=== PATIENT | male | born 1970 | race African-American/Black ===

== ENCOUNTER 2018-04-02 18:21 | Emergency (ER) | payer OTHER ==
[~2018-04-02] VITALS: Ht 170.2 cm; Wt 55.3 kg
[~2018-04-02 18:21] MED LIST: ALLERGY10 M2 PO; CREON DR 36,001 EACH PO; DICLOFENAC SODI75 MG PO; DIGESTIVE ENZY1 EAC3; FLONASE 0.05%50 MCG NASAL; LOPRESSOR50 PO; METFORMIN HCL500 MG PO; NORCO 5-325 TA1 EACH PO; ONDANSETRON HCL4 M2 PO; OXYCONTIN10 M1 PO; PEPCID20 MG PO; PHENERGAN 25 MG25 M1 PO; PRILOSEC 20 MG20 MG PO; PROMS25 WY RECTAL; SYMBICORT160 MCG/4. INH; VENTOLIN HFA 1818 GM INH
[2018-04-02] MEDS ORDERED: LISINOPRIL10 MG PO (18:37)
[2018-04-02] MEDS ORDERED: PROTONIX40 M1 PO (18:38)
[2018-04-02 19:15] LABS: ABSOLUTE NEUTROPHILS 5.1 thou/uL (1.4-8.2); BASOPHILS 1.3 % (0.0-2.0); EOSINOPHILS 2.3 % (0.0-3.0); HEMATOCRIT 38.7 % (42.0-52.0); HEMOGLOBIN 12.7 gm/dL (14.0-18.0); LYMPHOCYTES 28.9 % (24.0-44.0); MCH 25.7 pg (26.0-34.0); MCHC 32.9 g/dL (28.0-37.0); MCV 78.3 fL (80.0-100.0); MONOCYTES 9.3 % (1.0-8.0); PLATELET COUNT 424 thou/uL (150-400); POLYS 58.2 % (36.0-66.0); RBC 4.95 mil/uL (4.50-6.00); RDW 17.9 % (10.5-14.5); WBC 8.8 thou/uL (4.0-11.0)
[2018-04-02 19:22] LABS: CALCIUM 9.1 mg/dL (8.5-10.1); CREATININE 0.8 mg/dL (0.7-1.3); POTASSIUM 4.1 mmol/L (3.5-5.1)
[2018-04-02 19:28] LABS: ALBUMIN 3.2 g/dL (3.4-5.0); TOTAL BILIRUBIN 0.3 mg/dL (<0.1-1.0); TOTAL PROTEIN 7.8 g/dL (6.4-8.2)
[2018-04-02 20:47] LABS: URINE BLOOD NEGATIVE (Negative); URINE CLARITY CLEAR; URINE COLOR YELLOW; URINE GLUCOSE-RANDOM* 1+ (Negative); URINE KETONES 2+ (Negative); URINE LEUKOCYTES-REFLEX NEGATIVE (Negative); URINE NITRITE-REFLEX NEGATIVE (Negative); URINE PROTEIN (DIPSTICK) NEGATIVE (Negative)
[2018-04-02 20:48] LABS: ICTOTEST (BILI CONFIRMATORY) Negative (Negative); URINE BILIRUBIN NEGATIVE (Negative)
[2018-04-02] MEDS ORDERED: REGLAN 10 MG TA10 MG PO (22:17)
[2018-04-02 23:16] VITALS: BP 164/91
== END 2018-04-02 23:17 | disposition home or self-care (01) ==
LOC: ER 18:21
PROVIDERS: Physician Assistant
DX: R11.2 Nausea with vomiting, unspecified (principal); R10.13 Epigastric pain; E11.649 Type 2 diabetes mellitus with hypoglycemia without coma; K86.1 Other chronic pancreatitis; J45.909 Unspecified asthma, uncomplicated; F17.210 Nicotine dependence, cigarettes, uncomplicated; Z86.2 Personal history of diseases of the blood and blood-forming organs and certain disorders involving the immune mechanism; Z88.0 Allergy status to penicillin

== ENCOUNTER 2018-05-13 14:53 | Emergency (ER) | payer OTHER ==
[~2018-05-13] VITALS: Ht 170.2 cm; Wt 55.8 kg
[~2018-05-13 14:53] MED LIST changes: +LISINOPRIL10 MG PO; +PROTONIX40 M1 PO; +REGLAN 10 MG TA10 MG PO
[2018-05-13 14:57] VITALS: BP 137/86
[2018-05-13] MEDS ORDERED: FLOVENT HFA12 G1 INH (15:01)
[2018-05-13 15:48] LABS: HEMATOCRIT 35.3 % (42.0-52.0); HEMOGLOBIN 11.6 gm/dL (14.0-18.0); MCH 25.2 pg (26.0-34.0); MCHC 32.8 g/dL (28.0-37.0); PLATELET COUNT 355 thou/uL (150-400); RBC 4.59 mil/uL (4.50-6.00); RDW 18.3 % (10.5-14.5); WBC 7.6 thou/uL (4.0-11.0)
[2018-05-13 15:54] LABS: CALCIUM 8.9 mg/dL (8.5-10.1); CREATININE 0.9 mg/dL (0.7-1.3); POTASSIUM 4.1 mmol/L (3.5-5.1)
[2018-05-13 15:58] LABS: URIC ACID* 4.9 mg/dL (2.6-7.2)
[2018-05-13 16:07] LABS: ABSOLUTE NEUTROPHILS 4.9 thou/uL (1.4-8.2); ANISOCYTOSIS 1+
[2018-05-13] MEDS ORDERED: INDOMETHACIN 2525 MG PO (16:21)
[2018-05-13] MEDS ORDERED: ULTRAM 50MG TAB50 MG PO (16:21)
== END 2018-05-13 16:50 | disposition home or self-care (01) ==
LOC: ER 14:53
PROVIDERS: Physician Assistant
DX: M79.672 Pain in left foot (principal); M79.89 Other specified soft tissue disorders; F17.210 Nicotine dependence, cigarettes, uncomplicated; E11.9 Type 2 diabetes mellitus without complications; J45.909 Unspecified asthma, uncomplicated; M10.9 Gout, unspecified; K86.1 Other chronic pancreatitis; K86.81 Exocrine pancreatic insufficiency; Z88.0 Allergy status to penicillin

== ENCOUNTER 2019-08-03 15:12 | Inpatient (IN) | payer OTHER ==
[~2019-08-03] VITALS: Ht 170.2 cm; Wt 47.2 kg
[~2019-08-03 15:12] MED LIST changes: +FLOVENT HFA12 G1 INH; +INDOMETHACIN 2525 MG PO; +ULTRAM 50MG TAB50 MG PO
[2019-08-03 15:13] VITALS: BP 128/94
[2019-08-03 15:38] LABS: URINE BLOOD NEGATIVE (Negative); URINE CLARITY CLEAR; URINE COLOR YELLOW; URINE GLUCOSE-RANDOM* NEGATIVE (Negative); URINE KETONES 1+ (Negative); URINE LEUKOCYTES NEGATIVE (Negative); URINE NITRITE NEGATIVE (Negative); URINE PROTEIN (DIPSTICK) TRACE (Negative); URINE SPECIFIC GRAVITY 1.025 (1.005-1.035)
[2019-08-03 15:41] LABS: ICTOTEST (BILI CONFIRMATORY) Negative (Negative); URINE BILIRUBIN NEGATIVE (Negative)
[2019-08-03 16:03] LABS: ABSOLUTE NEUTROPHILS 4.3 thou/uL (1.4-8.2); EOSINOPHILS 1.3 % (0.0-3.0); HEMATOCRIT 40.6 % (42.0-52.0); HEMOGLOBIN 12.7 gm/dL (14.0-18.0); LYMPHOCYTES 25.2 % (24.0-44.0); MCH 25.2 pg (26.0-34.0); MCHC 31.4 g/dL (28.0-37.0); MCV 80.5 fL (80.0-100.0); PLATELET COUNT 330 thou/uL (150-400); POLYS 64.5 % (36.0-66.0); RBC 5.04 mil/uL (4.50-6.00); WBC 6.7 thou/uL (4.0-11.0)
[2019-08-03 16:11] LABS: CALCIUM 9.3 mg/dL (8.5-10.1); POTASSIUM 4.1 mmol/L (3.5-5.1)
[2019-08-03] MEDS ORDERED: COLCHICINE0.6 MG PO (16:11)
[2019-08-03] MEDS ORDERED: SYMBICORT160 MCG/4. INH (16:12)
[2019-08-03] MEDS ORDERED: CHANTIX0.5 MG PO (16:14)
[2019-08-03] MEDS ORDERED: ONDANSETRON ODT8 MG PO (16:15)
[2019-08-03] MEDS ORDERED: MARINOL2.5 MG PO (16:16)
[2019-08-03] MEDS ORDERED: ACYCLOVIR 400400 MG PO (16:16)
[2019-08-03 16:17] LABS: ALBUMIN 3.4 g/dL (3.4-5.0); TOTAL BILIRUBIN 0.5 mg/dL (<0.1-1.0); TOTAL PROTEIN 7.8 g/dL (6.4-8.2)
[2019-08-03] MEDS ORDERED: IRON325 PO (16:17)
[2019-08-03] MEDS ORDERED: REMERON15 MG PO (16:18)
[2019-08-03] MEDS ORDERED: PHENERGAN 25 MG25 M1 PO (16:18)
[2019-08-03] MEDS ORDERED: OLOPATADINE HC2.5 ML OPHTHALMIC (16:21)
[2019-08-03] MEDS ORDERED: TRIAMCINOLONE A80 G2 TOP (16:22)
[2019-08-03 19:06] VITALS: BP 145/87
[2019-08-03 19:15] VITALS: BP 141/84
[2019-08-03 19:33] VITALS: BP 166/94
--- NOTE | 2019-08-04 04:09 | NUR ---
PT ARRIVED ON UNIT FROM ED AT 1930. ADMITTED WITH CHRONIC PANCREATITIS. AMBULATES INDEPENDENTLY. DILAUDID PROVIDING PAIN RELIEF. RESTING COMFORTABLY. NO NEEDS VOICED. CALL LIGHT WITHIN REACH. WILL CONTINUE TO PROVIDE FREQUENT OBSERVATION.
[2019-08-04 05:02] VITALS: BP 123/85
[2019-08-04 05:06] LABS: HEMATOCRIT 37.8 % (42.0-52.0); HEMOGLOBIN 11.9 gm/dL (14.0-18.0); MCH 25.5 pg (26.0-34.0); MCHC 31.6 g/dL (28.0-37.0); MCV 80.9 fL (80.0-100.0); RBC 4.67 mil/uL (4.50-6.00); RDW 17.9 % (10.5-14.5); WBC 6.2 thou/uL (4.0-11.0)
[2019-08-04 05:32] LABS: CALCIUM 8.6 mg/dL (8.5-10.1); POTASSIUM 4.2 mmol/L (3.5-5.1)
[2019-08-04 07:43] VITALS: BP 134/82
--- NOTE | 2019-08-04 10:13 | NUR ---
PT RESTING IN BED WATCHINCG TV. GIVEN AM MEDS AND PRN PAIN MED. PT REMAINS ON CLEAR LIQUID DIET. ORDERED AM MED AND NASAL SPRAY FROM PHARMACY.
--- NOTE | 2019-08-04 15:06 | NUR ---
PT REMAINS ON CLEAR LIQUID DIET AND HAS ENSURE CLEAR SUPPLEMENTS DRANK ALL AT BREAKFAST AND DINNER.
[2019-08-04 17:12] VITALS: BP 127/86
--- NOTE | 2019-08-04 17:26 | NUR ---
ASSESSMENT-PT LIVES AT HOME WITH HIS . HE IS INDEPENDENT OF ADLS AND AMBULATION. PT DRIVES. IS ABLE TO ASSIST AT HOME IF NEEDED. PT VOICES NO DC NEEDS AT THIS TIME. FOLLOWING TO ASSIST WITH DC PLANNING.
[2019-08-04 20:10] VITALS: BP 117/81
--- NOTE | 2019-08-05 02:59 | NUR ---
PT C/O PAIN ON HIS ABD,MANAGED WITH MEDICATION.PT CONT ON IVF.BG MONITORED,STABLE.UP ADLIB IN ROOM.SPOUSE AT BEDSIDE IN HIS ROOM.PT ABLE TO MAKE HIS NEEDS KNOWN.CALL LIGHT WITHIN REACH.
[2019-08-05 04:20] VITALS: BP 113/78
[2019-08-05 07:39] VITALS: BP 137/82
--- NOTE | 2019-08-05 09:39 | NUR ---
PT RESTING IN BED. TOOK AM MEDS. GIVEN PRN PAIN MED AND ZOFRAN. CONT ON CLEAR LIQUID DIET. BLOOD SUGAR CHECKED NO S/S PER ORDERS. PT HAS ENSURE ALL MEALS
[2019-08-05 16:46] VITALS: BP 110/69
[2019-08-05 19:50] VITALS: BP 99/61
--- NOTE | 2019-08-05 23:46 | NUR ---
PT WALKED OUT OF THE UNIT WITH SPOUSE. EDUCATION PROVIDED ABOUT PT ASKING FOR STAFF MBR TO ESCORT HIM IF HE HAS TO LEAVE FOR A WALK. PT VERBALISED UNDERSTANDING.
[2019-08-06 03:25] VITALS: BP 114/68
--- NOTE | 2019-08-06 03:51 | NUR ---
PT IS UP AND NICK.PT DENIES N/V AND ON FULL LIQUIDS AND TO RESUME REGULAR DIET FOR BREAKFAST.PT IS ON DILAUDID Q4H WITH PARTIAL RELIEVE.PT REFUSED SCDS AND ENOXAPARIN INJ THAT HE IS AMBULATING.EDUCATION PROVIDED.PT REFUSE ACCUCHECKS.
[2019-08-06 05:29] LABS: HEMATOCRIT 33.8 % (42.0-52.0); HEMOGLOBIN 10.7 gm/dL (14.0-18.0); MCH 25.5 pg (26.0-34.0); MCHC 31.6 g/dL (28.0-37.0); MCV 80.6 fL (80.0-100.0); RBC 4.2 mil/uL (4.50-6.00); WBC 7.4 thou/uL (4.0-11.0)
[2019-08-06 05:31] LABS: CALCIUM 7.8 mg/dL (8.5-10.1); CREATININE 0.8 mg/dL (0.7-1.3); POTASSIUM 3.6 mmol/L (3.5-5.1)
--- NOTE | 2019-08-06 06:35 | NUR ---
PT COMPLAINT OF NAUSEA AT ANOUT 0600 AND WAS ADM ZOFRAM .PT COMPLAINT OF PAIN AT AND WAS ADM DILAUDID
[2019-08-06 07:55] VITALS: BP 122/77
--- NOTE | 2019-08-06 08:05 | NUR ---
PT GIVEN ACETAMINOPEN 650 MG WITH SIP WATER AND WARM BLANKET TO BACK. PT IS NPO TO HAVE PIPIDA SCAN THIS AM.
[2019-08-06] MEDS ORDERED: OXYCODONE HCL30 MG PO (15:49)
[2019-08-06 17:27] VITALS: BP 122/77
--- NOTE | 2019-08-06 20:02 | NUR ---
PATIENT DISCHARGED AT THIS TIME. IV ACSESS DCD. DISCHARGE PAPERS SIGNED AND COPY IN CHART. MEDICARE PAPERS DCD. PT W/O PAIN OR RESP DISTRESS AT DISCHARGE ALL BELONGINGS PACKED AND SENT WITH PATIENT.
[2019-08-06 20:04] VITALS: BP 122/77
== END 2019-08-06 19:40 | disposition home or self-care (01) | DRG 438 ==
LOC: ER 15:12 → 4E 18:08 → EROBS 18:08 → 4E 19:18 → 4S 08-06 13:31
PROVIDERS: Emergency Medicine; ADMIT Hospitalist
DX: K85.90 Acute pancreatitis without necrosis or infection, unspecified (principal); E43 Unspecified severe protein-calorie malnutrition; Z68.1 Body mass index [BMI] 19.9 or less, adult; E11.9 Type 2 diabetes mellitus without complications; I10 Essential (primary) hypertension; K86.1 Other chronic pancreatitis; G89.29 Other chronic pain; F17.210 Nicotine dependence, cigarettes, uncomplicated; J45.909 Unspecified asthma, uncomplicated; M10.9 Gout, unspecified; Z79.899 Other long term (current) drug therapy; Z88.0 Allergy status to penicillin; Z88.5 Allergy status to narcotic agent
CPT/HCPCS: 10084

== ENCOUNTER 2019-08-27 09:36 | Inpatient (IN) | payer OTHER ==
[~2019-08-27] VITALS: Ht 170.2 cm; Wt 48.1 kg
--- NOTE | ~2019-08-27 | HC ---
[facility] [place] [address] CONSULTATION Name: STEPHAINE TODD Room #: 449-I ADM IN M.R.#: [id number] Admission: 08/27/19 Attend Phys: Frantz Hernandez MD Discharge: Date of : 68 Report #: [id number] THIS REPORT FOR: //name// CC: Frantz Ayalaessaray Sanchez DATE OF SERVICE: 08/31/2019 INFECTIOUS DISEASE CONSULTATION ATTENDING PHYSICIAN: Dr. Hernandez. REASON FOR CONSULTATION: Antibiotic management. HISTORY OF PRESENT ILLNESS: A 49-year-old -[place] man with chronic pancreatitis admitted with left-sided abdominal pain. The patient is diagnosed to have a possibly infected pseudocyst. He undergoes percutaneous drainage of the abscess by Randall Gross on 08/29/2019. The Gram stain revealed mixed brynn. ID opinion is requested. DRUG ALLERGIES: PENICILLIN, MORPHINE. PENICILLIN CAUSES HIVES. MEDICATIONS: The patient is on treatment with PPN, senna/docusate b.i.d., folic acid, p.r.n. oxycodone, p.r.n. hydromorphone, p.r.n. ondansetron. PAST MEDICAL HISTORY: Chronic pancreatitis. Alcohol abuse. Pancreatic surgery at [facility] by Dr. Pollo Buckley years ago. Chronic abdominal pain. Chronic diarrhea. Nausea and vomiting. For details, see H and P. SOCIAL HISTORY: See H and P, old records. FAMILY HISTORY: See H and P, old records. REVIEW OF SYSTEMS: Abdominal pain. PHYSICAL EXAMINATION: GENERAL: A chronically debilitated -[place] man, not toxic looking. VITAL SIGNS: Temperature 98, pulse 84, respirations 16, BP 101/56, height 5 feet 7 inches, weight 123 pounds to 106 pounds. I certainly do not know which one it might be. HEENMT: Within range. NECK: Supple. LUNGS: Clear. HEART: S1, S2. ABDOMEN: Revealed a bilateral subcostal scar from previous pancreatic surgeries. Abdomen is soft, not particularly tender. There is a left-sided [facility] [address] [place] [address] CONSULTATION Name: STEPHANIE TODD Room #: 449-I ADM IN ..#: [id number] Admission: 08/27/19 Attend Phys: Frantz Hernandez MD Discharge: Date of : 68 Report #: [id number] percutaneous drainage catheter and fluid in the collection bag is infected looking. GENITAL AND RECTAL: Deferred. EXTREMITIES: No clubbing or cyanosis. LABORATORY DATA: Sodium 133, potassium 4.7, BUN 19, creatinine 0.7, albumin 2.4 g/dL. WBC 7.3, hemoglobin 10.9, platelets 592,000. Sedimentation rate 92 mm per hour. IgG level normal. IgA 609 elevated. IgM normal. Gram stain of the abdominal fluid revealed moderate gram-negative rods, many gram-positive cocci in chains, possibly Streptococcus. RADIOLOGY EVALUATION: CT scan abdomen and pelvis revealed retroperitoneal multiloculated thick-walled fluid collection along the left lateral paracolic gutter extending through the intercostal musculature into the subcutaneous tissues. ASSESSMENT: 1. Intraabdominal fluid collection, abscess, possibly due to fusobacterium and enteric gram-negative organism. 2. Chronic pancreatitis. 3. Malnutrition. 4. Mild anemia. 5. PENICILLIN-induced HIVES. SUGGESTIONS: Recommend meropenem 500 mg IV every 8 hours, Zyvox 600 mg IV every 12 hours. Streamline antibiotic regimens once culture available. Dr. Bennett assuming care tomorrow. By: [id number] Flakito Vera MD /nt
[~2019-08-27 09:36] MED LIST changes: +ACYCLOVIR 400400 MG PO; +CHANTIX0.5 MG PO; +COLCHICINE0.6 MG PO; +IRON325 PO; +MARINOL2.5 MG PO; +OLOPATADINE HC2.5 ML OPHTHALMIC; +ONDANSETRON ODT8 MG PO; +OXYCODONE HCL30 MG PO; +REMERON15 MG PO; +TRIAMCINOLONE A80 G2 TOP
[2019-08-27 09:41] VITALS: BP 105/74
[2019-08-27 10:46] LABS: URINE BILIRUBIN NEGATIVE (Negative); URINE BLOOD NEGATIVE (Negative); URINE CLARITY CLEAR; URINE COLOR YELLOW; URINE GLUCOSE-RANDOM* NEGATIVE (Negative); URINE KETONES NEGATIVE (Negative); URINE LEUKOCYTES-REFLEX NEGATIVE (Negative); URINE NITRITE-REFLEX NEGATIVE (Negative); URINE PROTEIN (DIPSTICK) NEGATIVE (Negative)
[2019-08-27 10:48] LABS: ABSOLUTE NEUTROPHILS 8.9 thou/uL (1.4-8.2); BASOPHILS 1.1 % (0.0-2.0); EOSINOPHILS 3.1 % (0.0-3.0); HEMATOCRIT 32.5 % (42.0-52.0); HEMOGLOBIN 10.3 gm/dL (14.0-18.0); MCH 24.8 pg (26.0-34.0); MCHC 31.7 g/dL (28.0-37.0); MCV 78.1 fL (80.0-100.0); MONOCYTES 11.9 % (1.0-8.0); PLATELET COUNT 650 thou/uL (150-400); POLYS 71.9 % (36.0-66.0); RBC 4.16 mil/uL (4.50-6.00); RDW 18.2 % (10.5-14.5); WBC 12.4 thou/uL (4.0-11.0)
[2019-08-27 10:52] LABS: ANION GAP 7 mmol/L (7-16); BUN 14 mg/dL (7-18); CALCIUM 8.7 mg/dL (8.5-10.1); CHLORIDE 99 mmol/L (98-107); CO2 28 mmol/L (21-32); CREATININE 0.7 mg/dL (0.7-1.3); GLUCOSE 89 mg/dL (74-106); POTASSIUM 4.5 mmol/L (3.5-5.1); SODIUM 134 mmol/L (136-145)
[2019-08-27 11:02] LABS: ALBUMIN 2.5 g/dL (3.4-5.0); LIPASE 111 U/L (73-393); SGOT 10 U/L (15-37); TOTAL BILIRUBIN 0.5 mg/dL (<0.1-1.0); TOTAL PROTEIN 7.8 g/dL (6.4-8.2); TROPONIN-I <0.06 ng/mL (<0.06)
[2019-08-27 11:17] LABS: SGPT < 5 U/L (30-65)
[2019-08-27 15:28] VITALS: BP 122/81
[2019-08-27 15:54] VITALS: BP 127/83
--- NOTE | 2019-08-27 17:40 | EKG ---
[address] [place] [address] ELECTROCARDIOGRAM REPORT Name: STEPHANIE TODD Room #: 449-I ADM IN M.R.#: [id number] Admission: 08/27/19 Attend Phys: Frantz Hernandez MD Discharge: Date of : 68 Report #: [id number] THIS REPORT FOR: //name// 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
[2019-08-27 18:57] VITALS: BP 133/82
[2019-08-27 19:03] VITALS: BP 133/82
--- NOTE | 2019-08-27 19:08 | NUR ---
ACCEPTED PT FROM ED APPROX. 174. PLEASANT PATIENT. IV IN L.JUGULAR. PT. WOULD LIKE A NICOTINE PATCH FOR SMOKING SENSATIONS. A&OX4. PT. IS ON CLEAR LIQUIDS UNTIL MIDNIGHT AND THEN NPO AWAITING POSSIBLE SURGERY. IF ANYTHING NEEDED PLEASE CONTACT .
[2019-08-27 19:55] LABS: % SATURATION 7 % (20-39); IRON 11 ug/dL (65-175); TIBC 157 ug/dL (250-450)
[2019-08-27 20:23] LABS: FOLIC ACID 11.7 ng/mL (8.6-58.9)
[2019-08-28 03:36] VITALS: BP 132/86
--- NOTE | 2019-08-28 04:56 | NUR ---
PT IS A/O X4.PT IS UP AD NICK.PT HAD A BLOOD SUGAR LEVEL OF 49 WAS OFFERED ORANGE JUICE,IT WAS RECHECKED AND IT WAS 98.PT IS ON PPN AND IV ON LEFT EXTERNAL JUGULAR VEIN.PT WAS NPO FROM MIDNIGHT AND DUE FOR PROCEDURE THIS MORNING.PT MGT WITH DILAUDID ,OXYCODONE AND FENTANYL WITH PARTIAL RELIEF.PT DOESNT WANT FENTANYL FOR PAIN THAT IT DOESNT RELIEVE HIS PAIN.CONTINUE TO MONITOR.
--- NOTE | 2019-08-28 07:19 | NUR ---
PT HAD A TEMP OF 101.0 THIS AM.TEMP REPORTED TO TANIA AND SHE SAYS SHE IS GOING TO REPORT TO THE SURGEON.
[2019-08-28 07:32] VITALS: BP 136/94
--- NOTE | 2019-08-28 13:08 | NUR ---
PT ADMITTED RELATED TO CHRONIC PANCREATITIS. CM REVIEWED CHART AND SPOKE WITH CARE TEAM. CM MET WITH PT AT BEDSIDE THIS DAY. PT IS A&O X4. CM ROLE INTRODCUED. PT INDICATED HE LIVES IN A HOUSE WITH IS SPOUSE WITH 5 STEPS TO ENTER AND 8 STEPS INSIDE. 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 PT INDICATED NO DME OR HH HX. PT INDICATED HE PLANS TO RETURN HOME OCNE MEDICALLY STABLE. CM TO FOLLOW INDICATED WITH DC PLANNING.
[2019-08-28 13:48] VITALS: BP 115/89
[2019-08-28 19:17] VITALS: BP 133/88
--- NOTE | 2019-08-28 20:19 | NUR ---
ASSUMED CARE 0700, PAIN MANAGED WITH MEDICATIONS, DIET ADVANCE TO REGULAR, PRUNE JUICE GIVEN FOR BOWEL MOVEMENT. ORDER FOR SUPOSITORY TO BE GIVEN HS. PLEASANT AND COMPLIANT WITH CARES
[2019-08-29] VITALS (8 sets, daily range): BP systolic 102–1112; BP diastolic 59–81
--- NOTE | 2019-08-29 02:51 | NUR ---
ASSUMED CARE OF PT AT 1900HRS. PT IS AOX4 AND LETS NEEDS BE KNOWN. PT IS UP AD NICK. PT COMPLAINED OF PAIN AND WAS TREATED WITH PRN PAIN MEDS. PAIN WAS POORLY CONTROLLED THIS SHIFT. VSS AND NO S/S OF ACUTE DISTRESS. WILL CONTINUE TO MONITOR.
--- NOTE | 2019-08-29 10:00 | NUR ---
Received order for calorie count to start. Pt NPO this am for IR drainage of pseudocyst. Remains on PPN. Start calorie count once diet readvanced. Follow up 09/01 for results.
--- NOTE | 2019-08-29 11:27 | NUR ---
PT TAKEN TO CT FOR ABCESS DRAINAGE AND DRAIN PLACEMENT. PT GIVEN FENTANYL 100 MCG AND VERSED 2 MG FOR PROCEDURE. TIME OUT DONE AT 1021. PROCEDURE START TIME 1030. VSS STABLE DURING PROCEDURE, PT TOLERATED WELL. FLUID SPEC SENT TO LAB. PROCEDURED FINISHED AT 1045. VSS 1035 P 98, R 23, SAT 98, BP 107/70 1041 P 99, R 25, SAT 97, BP 107/69 1045 P 94, R 14, SAT 98, BP 117/95
[2019-08-29 12:56] LABS: HEMOGLOBIN 12.5 gm/dL (14.0-18.0); MCH 24.7 pg (26.0-34.0); PLATELET COUNT 625 thou/uL (150-400); RBC 5.06 mil/uL (4.50-6.00); RDW 17.7 % (10.5-14.5); WBC 8.1 thou/uL (4.0-11.0)
[2019-08-29 13:12] LABS: ALBUMIN 2.7 g/dL (3.4-5.0); CALCIUM 9.5 mg/dL (8.5-10.1); CREATININE 0.7 mg/dL (0.7-1.3); POTASSIUM 4.9 mmol/L (3.5-5.1); TOTAL BILIRUBIN 0.4 mg/dL (<0.1-1.0); TOTAL PROTEIN 8.9 g/dL (6.4-8.2)
[2019-08-29 13:27] LABS: ANISOCYTOSIS 1+
--- NOTE | 2019-08-29 16:56 | NUR ---
Received awake on bed. Due medications given as prescribed. On nothing per orem- pt informed and aware, for IR guided drainage of abscess and drain placement- consent signed by pt. A+Ox4. On room air. On PPN at 100cc/hr, infusing well L external jugular peripheral IV. Pt continent of B/B. Up ad olegario. Vital signs stable. Visited by relatives today. Complained of pain, due PRN IV and oral pain meds given. Pt fetched by IR staff for procedure. Came back from IR, post procedure vital signs taken and recorded- stable; verified with Gastro POLE FRAMER MACHINE if pt can resume diet and if with any restrictions post procedure- can resume diet and no activity restriction. With perc drain at L- intact, output to be measured and recorded. Pt placed on calorie count by helicopter pilot. Seen by Dr Bullard, enema ordered; pt requested to have it later- will let nurse know once he's ready to have enema. Assisted in ADLs. With PPN prescribed for 1300- verified with Pharmacist Charli re: filter to be put on the PPN since there was none connected and none on the orders- as per Pharmacist- to have 0.2 micron filter with PPN. To continue monitoring patient.
[2019-08-30 05:01] VITALS: BP 99/65
--- NOTE | 2019-08-30 05:45 | NUR ---
PLEASANT GENTLEMAN POST IR DRAINAGE OF PANCREATIC CYST. PT A&OX4. PAIN IS WELL CONTROLLED WITH CURRENT REGIMEN. PT DECIDED TO SKIP HIS OXYCODONE DOSES, STATED THAT IT HURT HIS THROAT WHEN HE SWALLOWS. V/S STABLE, NO N/V OVERNIGHT. PT GETS UP INDEPENDENTLY TO THE BATHROOM. DRAIN WAS FLUSHED WITH 10ML SYRINGE AND 200ML OF PURULENT FLUID WAS EMPTIED. PT ON THE PPN AND TOLERATING WELL. BG WNL. STAYED THE NIGHT. NO S/S OF DISTRESS. CALL MONSIVAIS WITHIN REACH. WILL CONT TO MONITOR
[2019-08-30 06:08] LABS: IgA 609 mg/dL (90-386); IgG 1392 mg/dL (700-1600); IgM 84 mg/dL (20-172)
[2019-08-30 08:00] VITALS: BP 103/70
[2019-08-30 08:19] LABS: HEMATOCRIT 33.4 % (42.0-52.0); HEMOGLOBIN 10.9 gm/dL (14.0-18.0); MCH 25.1 pg (26.0-34.0); MCHC 32.5 g/dL (28.0-37.0); MCV 77.2 fL (80.0-100.0); RBC 4.33 mil/uL (4.50-6.00); RDW 17.5 % (10.5-14.5); WBC 7.3 thou/uL (4.0-11.0)
[2019-08-30 08:35] LABS: ALBUMIN 2.4 g/dL (3.4-5.0); CALCIUM 9.2 mg/dL (8.5-10.1); CREATININE 0.7 mg/dL (0.7-1.3); POTASSIUM 4.7 mmol/L (3.5-5.1); TOTAL BILIRUBIN 0.3 mg/dL (<0.1-1.0); TOTAL PROTEIN 7.9 g/dL (6.4-8.2)
--- NOTE | 2019-08-30 16:55 | NUR ---
PT A&OX4, VSS. PATIENTS EXTERNAL JUGULAR IV INTACT, DRAIN TO LEFT ABDOMEN INTACT, PURULENT DRAINAGE. PATIENT POORLY EATING AT 10% OF MEALS. PAIN MEDICATION GIVEN FOR PAIN. NO SIGNS OF DISTRESS, WILL CONTINUE TO MONITOR.
[2019-08-30 20:50] VITALS: BP 101/56
--- NOTE | 2019-08-31 02:42 | NUR ---
PATIENT ALERT AND ORIENTED X4. MEDICATED FOR PAIN X2 AT TIME OF NOTE. PPN INFUSING W/O COMPLICATION. THIS NURSE EMPTIED 50ML OF MUELLER LIQUID FROM HIS DRAINAGE BAG. PATIENT VOIDING CLEAR YELLOW URINE. RESTING QUIETLY WITH AT BEDSIDE DURING THE NIGHT. WILL MONITOR.
--- NOTE | 2019-08-31 06:32 | NUR ---
PATIENT INADVERTANTLY DISCONTINUED HIS IV. PATIENT IS A VERY HARD STICK AND WILL NEED THE IV TEAM TO INSERT AND THE ED HAD TO PLACE HIS IV IN THE LEFT OUTER CAROTID.
[2019-08-31 07:17] VITALS: BP 92/68
[2019-08-31 15:19] VITALS: BP 115/69
[2019-08-31 17:26] LABS: URINE BILIRUBIN NEGATIVE (Negative); URINE BLOOD NEGATIVE (Negative); URINE CLARITY CLEAR; URINE COLOR YELLOW; URINE GLUCOSE-RANDOM* NEGATIVE (Negative); URINE KETONES NEGATIVE (Negative); URINE LEUKOCYTES-REFLEX NEGATIVE (Negative); URINE NITRITE-REFLEX NEGATIVE (Negative); URINE PROTEIN (DIPSTICK) NEGATIVE (Negative); URINE UROBILINOGEN 0.2 E.U./dl (0.2-1.0)
--- NOTE | 2019-08-31 18:24 | NUR ---
Assumed pt care this am, IV reinsertd by IV team on the left FA. PPN running, filter placed. Pain managed with medication with partial relief noted. VS stable. Drainage bag collected can fluid. Pt is up a olegario and walked the halls. UA collected and sent down to the lab. Pt is not able to take his supplements on time but tries to finish through out the day. Family at the bedside. POC followed no other signs or verbalizations of distress have been noted.
[2019-08-31 18:51] VITALS: BP 102/74
--- NOTE | 2019-09-01 05:03 | NUR ---
PATIENT ALERT AND ORIENTED X4. UP ADLIB IN ROOM. MEDICATED FOR PAIN X3 DURING THE NIGHT AT TIME OF THIS NOTE. FAMILY AT BEDSIDE IN EARLY EVENING AND SPENT MOST OF THE NIGHT. COOPERATIVE WITH CARE. IV INFILTRATED AROUND 0230 AND PATIENT IS A STICK FOR THE IV TEAM THEY WILL BE CONTACTED AT SHIFT CHANGE TO RESTART HIS IV ACCESS. PATIENT WILL TAKE PO PAIN MEDICATION UNTIL THAT TIME. RESTING QUIETLY. WILL MONITOR.
--- NOTE | 2019-09-01 09:17 | NUR ---
Followup on calorie count results. Pt ate very poorly < 10% on 08/29 and 08/30 however started eating much better 08/31. Will continue calorie count couple more days. Pt voiced he actually ordered his breakfast meal for today and waiting for it to arrive. Wants to vary supplements of Ensure Enlive and Ensure Clear. Followup again on 09/02.
[2019-09-01 09:46] LABS: ALBUMIN 2.7 g/dL (3.4-5.0); CALCIUM 9.3 mg/dL (8.5-10.1); CREATININE 0.6 mg/dL (0.7-1.3); MAGNESIUM 2.2 mg/dL (1.8-2.4); TOTAL BILIRUBIN 0.3 mg/dL (<0.1-1.0); TOTAL PROTEIN 7.7 g/dL (6.4-8.2)
[2019-09-01 09:48] LABS: POTASSIUM 5.8 mmol/L (3.5-5.1)
--- NOTE | 2019-09-01 11:17 | NUR ---
VASCULAR ACCESS CONSULTED FOR MIDLINE, DISCUSSED BENEFITS AND RISK OF MIDLINE, VERBALIZED UNDERSTANDING AND GAVE VERBAL CONSENT TO PROCEDE. PT'S LABS,MEDS,HISTORY REVIEWED.SUNG BASILIC WAS WIDELY PATENT WITH USG. 4FR POWER MIDLINE TRIMMED TO 15CM INSERTED TO 3CM EXTERNAL PER HOSPITAL P&P. PT TOLERATED WELL. LABS DRAWN. ML RELEASED FOR IMMEDIATE USE PER PROTOCOL
[2019-09-01 12:02] LABS: HEMATOCRIT 32.3 % (42.0-52.0); HEMOGLOBIN 10.4 gm/dL (14.0-18.0); MCH 24.8 pg (26.0-34.0); MCHC 32.2 g/dL (28.0-37.0); MCV 76.8 fL (80.0-100.0); RDW 17.5 % (10.5-14.5); WBC 6.9 thou/uL (4.0-11.0)
[2019-09-01 12:32] LABS: URIC ACID* 5.3 mg/dL (2.6-7.2)
[2019-09-01 13:03] LABS: ABSOLUTE NEUTROPHILS 3.2 thou/uL (1.4-8.2); PLATELET ESTIMATE INCREASED
[2019-09-01 13:05] LABS: PLATELET COUNT 711 thou/uL (150-400)
--- NOTE | 2019-09-01 14:55 | NUR ---
CARE TEAM INDICATED THAT PT IS PROGRESSING TOWARD GOAL OF DC. THEY INDICATED THAT PT WOULD BENEFIT FROM FOLLOW UP WITH OP PAIN MANAGEMENT. CM TO PROVIDE CONTACT INFO FOR PT TO INITIATE FOLLOW UP CARES UPON DC. CM TO FOLLOW INDICATED WITH DC PLANNING.
[2019-09-01 15:00] VITALS: BP 112/83
--- NOTE | 2019-09-01 17:48 | NUR ---
PATIENT ALERTX4, PAIN MANAGED WITH MEDICATIONS, IV MIDLINE PLACE LATE THIS MORNING. NOTIFIED PHARMANCY OF CHANGE IN IVPB MEDS DUE TO NO ACCESS. PHARMACY TO ADJUST TO REFLECT TIME CHANGES. PT REFUSED BLOOD SUGAR CHECKS NOON AND DINNER MEALS. DRAIN REMAINS IN PLACE WITH A MILKY DRAINAGE. CONTINUE TO MONITOR
[2019-09-01 19:06] VITALS: BP 104/68
--- NOTE | 2019-09-02 03:29 | NUR ---
Assumed care of pt @1900. Pt a&ox4. in depenedent in the room with at bedside. pt make needs known. pt abdomen is distended and firm. pt declined stool softener, nurse looked back in pt emar, and pt has been refusing previous doses. education was done and pt decided to take the stool softerner. pt denies n/v. pain is controlled with current pain regimen. purulent output in drainage bag. no s/s of distress. call rosa within reach. will cont to monitor
[2019-09-02 09:28] VITALS: BP 108/73
--- NOTE | 2019-09-02 10:44 | NUR ---
Calorie count: no menus were saved yesterday. Visit with pt this am, appeared aggitated with pursuit of questions regarding intake. States he will drink the Ensure if served over ice-provided for pt. Pt also eats better when ordering own meals. PPN has been discontinued.
[2019-09-02 13:04] LABS: ABSOLUTE NEUTROPHILS 3.6 thou/uL (1.4-8.2); BASOPHILS 1.1 % (0.0-2.0); EOSINOPHILS 6.2 % (0.0-3.0); HEMATOCRIT 32.1 % (42.0-52.0); LYMPHOCYTES 25.2 % (24.0-44.0); MCHC 31.1 g/dL (28.0-37.0); MCV 77.2 fL (80.0-100.0); MONOCYTES 10.9 % (1.0-8.0); PLATELET COUNT 687 thou/uL (150-400); POLYS 56.6 % (36.0-66.0); RBC 4.16 mil/uL (4.50-6.00); RDW 17.6 % (10.5-14.5); WBC 6.3 thou/uL (4.0-11.0)
[2019-09-02 13:11] LABS: GLOBULIN TOTAL 4.6 g/dL (2.2-3.9); M-SPIKE Not Observed g/dL (Not Observed)
[2019-09-02 13:13] LABS: ALBUMIN 2.8 g/dL (3.4-5.0); CALCIUM 8.7 mg/dL (8.5-10.1); CREATININE 0.8 mg/dL (0.7-1.3); POTASSIUM 4.9 mmol/L (3.5-5.1); TOTAL BILIRUBIN 0.2 mg/dL (<0.1-1.0); TOTAL PROTEIN 8.4 g/dL (6.4-8.2)
--- NOTE | 2019-09-02 14:46 | NUR ---
PT WITH DRAINS IN PLACE RECIEVING IV ABX. CM FOLLOWING REGARDING POSSIBLE DC NEEDS.
[2019-09-02 14:59] VITALS: BP 108/70
--- NOTE | 2019-09-02 18:37 | NUR ---
PT A&OX4, VSS, PAIN IN ABDOMEN. PATIENT EATING BETTER TODAY. DRAIN PATENT/INTACT. CT COMPLETE TODAY. SON AT BEDSIDE. NO SIGNS OF DISTRESS, WILL CONTINUE TO MONITOR.
[2019-09-02 19:01] VITALS: BP 126/85
--- NOTE | 2019-09-03 05:27 | NUR ---
PT IS A/O X4.PT IS UP AD NICK .PT NPO FROM MIDNIGHT AND HAS AN MRI TODAY.PT SAYS HE IS CLAUSTOPHOBICS AND NEEDS SOMETHING FOR ANXIETY BEFORE MRI.PAIN MGT WITH DILAUDID.PT HAS A MIDLINE SUNG AND A DRAINAGE BAG.CONTINUE TO MONITOR
[2019-09-03 07:29] VITALS: BP 119/85
--- NOTE | 2019-09-03 07:30 | HC ---
[facility] [place] [address] CONSULTATION Name: STEPHANIE TODD Room #: 449-I ADM IN M.R.#: [id number] Admission: 08/27/19 Attend Phys: Frantz Hernandez MD Discharge: Date of : 68 Report #: [id number] THIS REPORT FOR: //name// CC: Jesus Sanchez MD REQUESTING PHYSICIAN: Dr. Hernandez. REASON FOR CONSULTATION: Slightly elevated IgA. HISTORY OF PRESENT ILLNESS: The patient is a 49-year-old male admitted to the hospital with a history of chronic pancreatitis, pseudocyst, who presented with left abdominal pain that radiated to his mid back for 5 days. This is currently thought to be an infected pseudocyst and is draining purulent material and I believe the patient is on antibiotics. The patient has had multiple flare-ups and hospitalizations since 2004. He also had surgery, I think, he said in [address] Buckley at [facility] for the pseudocyst. The patient had no previous knowledge of an elevated IgA. Note that the quantitative IgA was 609 with an upper limit to normal at 386. His IgG was around 1392 and his IgM, I think, was 54. Note that a serum protein electrophoresis and a serum immunofixation electrophoresis are pending. At this time, this is not known whether to be a monoclonal or polyclonal protein. The patient had no prior knowledge of difficulties with immune deficiency. He denies any history of recurrent infections or frequent use of antibiotics. He does have the chronic abdominal pain. The patient is not having significant headaches. Does have some occasional queasy stomach. When the stomach acts up, does have the occasional abdominal pain. Does have a chronic diarrhea. If I understand, denies any blood in his urine or stool. He denies any arm or leg swelling. PAST MEDICAL HISTORY: As mentioned above is notable for the chronic pancreatitis, history of alcohol abuse, history of pseudocyst, now thought to be infected. Also, chronic diarrhea and chronic abdominal pain. FAMILY HISTORY: No specific issues reported with mother and father. One of his children has asthma. 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 Still smokes. No recent alcohol and no street drugs. LABORATORY WORK: Here includes a creatinine of 0.6 and BUN of 22. Recent ALT 146. Recent albumin 2.7. Recent calcium 9.3. Recent total bilirubin 0.3. Iron on 08/27/2019 was 11 with a TIBC of 157 and a percent saturation of 7, [address] [address] CONSULTATION Name: STEPHANIE TODD Room #: 449-I [facility] IN .R.#: [id number] Admission: 08/27/19 Attend Phys: Frantz Hernandez MD Discharge: Date of : 68 Report #: [id number] consistent with iron deficiency. C-reactive protein not done for some time. As mentioned, the serum protein electrophoresis and SIFE is pending. White count 6.9. Recent hemoglobin 10.4, note that it has been 12 in 2014 and was 12.7 in early 07/2019, most recently it has been in the 10 range. MCV during this time is decreased from 80 up until early in August down to 76. Platelets slightly elevated at 711, earlier this admission were in the 246-187 range. I would suspect these are reactive in nature. Differential appears to be mostly nonacute. Sed rate had been elevated at 92. Imaging here includes a CT for abscess drainage on the . MEDICATIONS: At this time currently include meropenem 500 mg IV q.8, lipase/protease/amylase 2 caps with meals, Senokot-S 4 tabs b.i.d., flu vaccine, OxyIR 20 mg q.4 p.r.n., Tylenol 650 q.i.d. p.r.n., hydromorphone IV 1 mg q.4 p.r.n. Linezolid had been on and now stopped. Folic acid had been on and now stopped. ASSESSMENT AND PLAN: 1. Elevated immunoglobulin IgA, unclear whether polyclonal or monoclonal. We will await these results. Given normal creatinine ____ and lack of bony changes on the CAT scan, I doubt that this is a multiple myeloma. If it comes back polyclonal, no additional workup and this is likely reactive. If it is monoclonal, could consider bone marrow biopsy at some point. 2. Iron deficiency anemia. Defer to Dr. Shah and others regarding the workup, may consider IV iron at some point if intolerant to oral iron. 3. Infected pseudocyst, meropenem and other antibiotics per Infectious Disease. 4. Chronic pancreatitis per GI notes. 5. Hypertension per others. 6. Asthma. Aerosols per others. 7. History of alcohol abuse. Encouraged continuing abstinence. 8. Chronic abdominal pain. The patient has narcotics, use cautiously. <ELECTRONICALLY SIGNED> By: Calderon Pino MD 09/03/19729 8 39 Calderon Pino MD /nt
--- NOTE | 2019-09-03 11:16 | NUR ---
calorie count completed. Please see RD nutrition reassessment documentation.
--- NOTE | 2019-09-03 11:33 | NUR ---
Pt continues to eat very poorly despite encouragement, refusing supplements. Severe protein calorie malnutrition. May need to consider TPN vs small bowel enteral nutrition.
[2019-09-03 14:07] LABS: ANA INTERPRETATION Negative (())
--- NOTE | 2019-09-03 16:20 | NUR ---
CARE TEAM INDICATED THAT PT MAY NEED HOME INFUSION UPON DC. CM MET WITH PT AT BEDSIDE AND EXPLAINDED HOME INFUSION AND HH SERVICES. PT INDICATED NO PREFERENCE IN WHICH INFUSION REFERRAL WAS SENT TO CM SENT TO [facility] FOR THEM TO RUN BENEFIT COVERAGE FOR CURRENT DRUGS. THEY INDICATED THAT EACH DRUG COPAY IS $3.40 PER WEEK WITH A $25.00 PER DAY SUPPLY CHARGE PER DRUG SO TOTAL $43.75 PER DAY FOR THE TWO DRUGS. CM TO INFORM PT AND FOLLOW INDICATED WITH DC PLANNING. CARE TEAM MAY POSSIBLY DO EGD AND STILL AWAITING FINAL CULTURES. CM TO FOLLOW INDICATED WITH DC PLANNING.
[2019-09-03 16:54] VITALS: BP 116/75
[2019-09-03 19:47] VITALS: BP 112/75
[2019-09-03 20:09] LABS: IgA 658 mg/dL (90-386); IgG 1618 mg/dL (700-1600); IgM 94 mg/dL (20-172)
--- NOTE | 2019-09-03 20:19 | NUR ---
NO SIGNS OF DISTRESS, CARES PROVIDED ORDERED. PAIN MANAGED WITH MEDICATION. WILL CONTINUE TO MONITOR. SCANT OUTPUT FROM DRAIN, NOT ENOUGH TO MEASURE. PATIENT A&OX4.
--- NOTE | 2019-09-04 04:24 | NUR ---
Pt a&o. ambulates indepentdently. pt ate a good size of donuts brought by his last night. pt is concern that he is unable to get his lipase when he needs it. pt has been npo after midnight for possible egd today. scant milky yellow colored output from drain. drain was flushed with 10cc saline. v/s stable. no s/s of distress. callbell within reach. will cont to monitor
[2019-09-04 08:08] VITALS: BP 125/79
[2019-09-04 16:32] LABS: ALBUMIN 2.9 g/dL (3.4-5.0); CALCIUM 9.2 mg/dL (8.5-10.1); CREATININE 0.7 mg/dL (0.7-1.3); MAGNESIUM 2.2 mg/dL (1.8-2.4); POTASSIUM 4.8 mmol/L (3.5-5.1); TOTAL BILIRUBIN 0.3 mg/dL (<0.1-1.0); TOTAL PROTEIN 8.7 g/dL (6.4-8.2)
--- NOTE | 2019-09-04 18:35 | NUR ---
PATIENT DOING WELL TODAY. MAIN GOAL WAS PAIN CONTROL. MEDICATED WITH DILAUDID Q4H WITH GOOD RELIEF. PATIENT NPO THIS AM FOR EGD. RETURNED FROM GI LAB 1230. AWAKE, ALERT AND ORIENTED X 4. PROVIDED LUNCH TRAY. CREON GIVEN. MEDICATED X 2 WITH ZOFRAN FOR NAUSEA WITH COMPLETE RELIEF. UP INDEPENDENTLY AND TOLERATING WELL. LAB UNABLE TO DRAW LABS, PATIENT IS A HARD STICK. THIS RN STARTED A SMALL IV AND GOT ENOUGH BLOOD FOR THE CMP AND MG. WILL ATTEMPT TO GET THE CBC WITH AM LAB DRAW TOMORROW. PATIENT PLEASANT AND COOPERATIVE.
[2019-09-04 19:19] LABS: HEMATOCRIT 35.4 % (42.0-52.0); HEMOGLOBIN 11.1 gm/dL (14.0-18.0); MCH 24.8 pg (26.0-34.0); MCHC 31.5 g/dL (28.0-37.0); MCV 78.7 fL (80.0-100.0); RBC 4.5 mil/uL (4.50-6.00); RDW 17.8 % (10.5-14.5); WBC 5.8 thou/uL (4.0-11.0)
[2019-09-04 19:20] VITALS: BP 115/73
--- NOTE | 2019-09-05 04:27 | NUR ---
Assumed care of pt @1900. pt a&ox4. adlib. pain controlled with current pain regimen. pt had a restful night. no concerns overnight. nausea was treated with complete relief. v/s stable. no s/s distress. drain in place and patent. scant slimy transparent light yellow output was emptied from bag.flushed drain catheter with 10cc of ns. call rosa within reach. will cont to monitor
[2019-09-05 05:37] LABS: HEMATOCRIT 29.3 % (42.0-52.0); MCH 24.3 pg (26.0-34.0); MCHC 30.6 g/dL (28.0-37.0); MCV 79.5 fL (80.0-100.0); RBC 3.69 mil/uL (4.50-6.00); RDW 17.6 % (10.5-14.5); WBC 5.8 thou/uL (4.0-11.0)
[2019-09-05 07:13] LABS: ALBUMIN 2.5 g/dL (3.4-5.0); CALCIUM 8.6 mg/dL (8.5-10.1); CREATININE 0.7 mg/dL (0.7-1.3); POTASSIUM 4.8 mmol/L (3.5-5.1); TOTAL BILIRUBIN 0.2 mg/dL (<0.1-1.0); TOTAL PROTEIN 6.6 g/dL (6.4-8.2)
[2019-09-05 09:08] VITALS: BP 117/72
[2019-09-05 10:08] LABS: GLOBULIN TOTAL 4.8 g/dL (2.2-3.9); M-SPIKE Not Observed g/dL (Not Observed)
--- NOTE | 2019-09-05 12:46 | NUR ---
PLEASE WEIGH PT STANDING TODAY. THE STANDING SCALE HAS BEEN BROUGHT TO THE UNIT.
[2019-09-05 13:19] VITALS: BP 117/72
[2019-09-05 13:26] VITALS: BP 117/72
--- NOTE | 2019-09-05 14:07 | NUR ---
DISCHARGE PLANNING. POSSIBLE DISCHARGE THIS EVENING OR TOMORROW. PATIENT WILL NEED IV ANTIBIOTIC INFUSION AT HOME. HOME HEALTH IS ALSO RECOMMENDED FOR PATIENT. PATIENT REFERRAL FAXED TO [facility], FOR PATIENTS HH NEEDS. CALL PLACED TO JOSE TO NOTIFY OF PATIENTS DISCHARGE PLAN. AWAITING RESPONSE. FOLLOWING.
[2019-09-05] MEDS ORDERED: CIPRO500 MG PO (16:25)
[2019-09-05 16:32] VITALS: BP 117/72
--- NOTE | 2019-09-05 16:33 | NUR ---
CARE TEAM INDICATED THAT PT IS MEDICALLY STABLE TO DC HOME THIS DAY. PT HAS BEEN SWITCHED TO PO ABX AND THEREFORE DOESN'T REQUIRE HOME INFUSION OF HOME HEALTH SERVICES UPON DC. CM PROVIDED CONTACT INFO FOR PT TO FOLLOW UP WITH PAIN MANAGEMENT WITH DR. DEANNA BORRERO UPON DC. NO OTHER CM INTERVENTION INDICATED. CASE CLOSED.
[2019-09-05 17:20] VITALS: BP 117/72
--- NOTE | 2019-09-05 18:19 | NUR ---
PT A&OX4, VSS, PAIN IN ABDOMEN MANAGED WITH MEDICATION. PATIENT DISCHARGED HOME WITH CIPRO. PATIENT VERBALIZED UNDERSTANDING OF FOLLOW UP INSTRUCTIONS. NO SIGNS OF DISTRESS. PATIENT DRAIN REMOVED AND DRESSING C/D/I. MIDLINE REMOVED, PRESSURE APPLIED, DRESSING APPLIED. PATIENT REFUSED BLOOD SUGAR MONITORING TODAY. ALL BELONGINGS WITH PATIENT.
--- NOTE | 2019-09-08 11:53 | P ---
[facility] [place] [address] PROCEDURE REPORT Name: STEPHANIE TODD Room #: 449-I [facility] IN M.R.#: [id number] Admission: 08/27/19 Attend Phys: Frantz Hernandez MD Discharge: 09/05/19 Date of : 68 Report #: [id number] THIS REPORT FOR: //name// CC: Frantz Sanchez MD INPATIENT UPPER ENDOSCOPY REPORT BRIEF HISTORY: The patient is a 49-year-old male with chronic pancreatitis and infected pseudocyst, who has had multiple scans, were suggestive of a gastric mass lesion. History is significant for cystogastrostomy done a number of years ago, surgically. PREOPERATIVE DIAGNOSIS: Abnormal CT of the stomach, possible gastric mass. POSTOPERATIVE DIAGNOSES: 1. ____ diffuse gastritis. 2. Deformity of the stomach, benign appearing. 3. Reflux esophagitis. 4. Gastric varices. MEDICATIONS: Deep sedation with propofol per anesthesia. SPECIMEN: Biopsies of thickened fold stomach, rule out neoplasm. ESTIMATED BLOOD LOSS: 3 mL. PROCEDURE: EGD with biopsy. FINDINGS: Prior to propofol sedation, procedure of upper endoscopy was discussed with the patient as well as potential risks and its complications. He indicates he understands and desires to proceed. DESCRIPTION OF PROCEDURE: With the patient in left lateral decubitus position, the Olympus video endoscope was inserted in the cervical esophagus under direct vision without difficulty. Examination of this organ through its entire length revealed normal esophageal mucosa down the squamocolumnar junction. However, at the squamocolumnar junction, he was noted to have erosive changes consistent with grade C erosive esophagitis. No strictures or masses were seen. A significant hiatus hernia was not seen. Scope was advanced in the stomach, which was examined on end view as well as retroflexed views. In the body of the stomach, there was noted to be an area of deformity with thickened folds. He has had a cystogastrostomy and I presume this is the level of his cystogastrostomy. There was 1 fold in particular, there was erythematous and somewhat thickened. He did have a benign appearance with biopsies were obtained nonetheless. This area of deformity and narrowing essentially partitioned the [facility] [address] [place] [address] PROCEDURE REPORT Name: STEPHANIE TODD Room #: 449-I DIS IN [facility].#: [id number] Admission: 08/27/19 Attend Phys: Frantz Hernandez MD Discharge: 09/05/19 Date of : 68 Report #: [id number] stomach into 2 parts. The proximal stomach was examined on end view as well as retroflexed views. He was noted to have intact mucosa. There were noted to be varices, which have been described in the past high in the fundus of the stomach and around the cardia. There were no stigmata of bleeding. The scope was advanced through the narrowed area into the distal stomach. There was a diffuse erythematous gastritis. No ulcers, erosions or bleeding lesions were seen. No mass lesions were seen. The pylorus was unremarkable. Duodenal bulb was unremarkable. He has a history of a pancreatic stent, but the papilla was seen and no stents were identified. At that point, the scope was slowly withdrawn and careful circumferential views confirmed the above findings. The patient tolerated the procedure well. DISPOSITION: The patient with findings as noted above. We will follow up on the path. In view of the fact he has esophagitis, we will have him start on pantoprazole 40 mg daily. We will follow up on gastric biopsies as well. <ELECTRONICALLY SIGNED> By: Pawan Shah MD 09/08/19 1153 [id number] [id number] Pawan Shah MD /nt
--- NOTE | 2019-09-08 16:06 | PATH ---
[facility] [address] [place] [address] PATHOLOGY RPT PROCEDURE Name: STEPHANIE TODD Room #: 449-I DIS IN M.R.#: [id number] Admission: 08/27/19 Date of : 68 Discharge: 09/05/19 Report #: [id number] Path Case #: [id number] [facility] Accession Number: [id number] . 01 Material submitted: . stomach - BIOPSY OF BODY OF THE STOMACH TO R/O NEOPLASM. Modifiers: body . 01 Clinical history: . Preop DX: Abdominal pain, abnormal CT Postop DX: Gastritis, deformed stomach, gastric varices, esophagitis R/O Neoplasm . 02 Diagnosis: Gastric mucosa, body of the stomach to R/O neoplasm, endoscopic biopsy: - Fragments showing reactive hyperplastic changes along with extensive intestinal metaplasia. - Negative for dysplasia or malignancy. - Negative for atrophy. - Negative for Helicobacter pylori (properly controlled immunohistochemical stain performed). . (IUV:tim; 09/08/2019) QMS 09/08/2019 1244 Local . 02 Electronically signed: . Jazmin Herr MD, Pathologist NPI- [id number] . 01 Gross description: . Received in formalin labeled "Stephanie Todd, BX of body of stomach," are three segments of browne-brown soft tissue measuring 0.6 x 0.5 x 0.2 cm in aggregate dimensions and ranging from 0.3 to 0.4 cm in maximum dimension. The specimen is submitted entirely in cassette A1. (DAC; 09/05/2019) XDC/XDC 09/08/2019 1243 Local . 02 Pathologist provided ICD-10: K31.9 . 02 CPT . 711494, U12453 Specimen Comment: A courtesy copy of this report has been sent to [phone], [phone] Specimen Comment: [phone], Specimen Comment: Report sent to ,DR HILLS / DR FLORENTINO Performed at: 01 [place] [address] PATHOLOGY RPT PROCEDURE Name: STEPHANIE TODD Room #: 449-I DIS IN M.R.#: [id number] Admission: 08/27/19 Date of : 68 Discharge: 09/05/19 Report #: [id number] Path Case #: [id number] [address] [place], [place] [id number] MD Chaitanya Maynard MD Phone: [phone] Performed at: [address] [id number] MD Jazmin Herr MD Phone: [phone]
== END 2019-09-05 18:22 | disposition home or self-care (01) | DRG 438 ==
LOC: ER 09:36 → 4W 12:01 → EROBS 12:01 → 4W 15:54
PROVIDERS: Emergency Medicine; Family Medicine; Internal Medicine; Nurse Practitioner; ADMIT Internal Medicine
DX: K86.3 Pseudocyst of pancreas (principal); E43 Unspecified severe protein-calorie malnutrition; F11.20 Opioid dependence, uncomplicated; L02.211 Cutaneous abscess of abdominal wall; K22.10 Ulcer of esophagus without bleeding; Z68.1 Body mass index [BMI] 19.9 or less, adult; K86.1 Other chronic pancreatitis; D64.9 Anemia, unspecified; E11.9 Type 2 diabetes mellitus without complications; J45.909 Unspecified asthma, uncomplicated; M10.9 Gout, unspecified; F17.210 Nicotine dependence, cigarettes, uncomplicated; G89.29 Other chronic pain; I10 Essential (primary) hypertension; D50.9 Iron deficiency anemia, unspecified; K29.70 Gastritis, unspecified, without bleeding; K21.0 Gastro-esophageal reflux disease with esophagitis; I86.4 Gastric varices; K86.81 Exocrine pancreatic insufficiency; K59.00 Constipation, unspecified; E53.8 Deficiency of other specified B group vitamins; K75.9 Inflammatory liver disease, unspecified; R74.0 Nonspecific elevation of levels of transaminase and lactic acid dehydrogenase [LDH]; D72.1 Eosinophilia; B96.89 Other specified bacterial agents as the cause of diseases classified elsewhere; B96.20 Unspecified Escherichia coli [E. coli] as the cause of diseases classified elsewhere; Z79.899 Other long term (current) drug therapy; Z79.84 Long term (current) use of oral hypoglycemic drugs; Z88.6 Allergy status to analgesic agent; Z88.0 Allergy status to penicillin; Z82.5 Family history of asthma and other chronic lower respiratory diseases
CPT/HCPCS: 10040; 27000; 62110; 62900; 70005

== ENCOUNTER → 2019-09-19 | Outpatient (CLI) | payer OTHER ==
[~2019-09-19] MED LIST changes: +CIPRO500 MG PO
== END ==
LOC: CAT 08:57
DX: K76.0 Fatty (change of) liver, not elsewhere classified (principal); K86.3 Pseudocyst of pancreas; K76.89 Other specified diseases of liver; Z90.49 Acquired absence of other specified parts of digestive tract; I70.0 Atherosclerosis of aorta; K86.89 Other specified diseases of pancreas

== ENCOUNTER 2019-10-16 19:21 | Inpatient (IN) | payer OTHER ==
[~2019-10-16] VITALS: Ht 172.7 cm; Wt 46.3 kg
[2019-10-16 19:23] VITALS: BP 103/59
[2019-10-16] MEDS ORDERED: TOPROL XL50 MG (20:11)
[2019-10-16] MEDS ORDERED: LISINOPRIL PO (20:11)
[2019-10-16] MEDS ORDERED: PHENERGAN 25 MG25 M1 PO (20:12)
[2019-10-16 20:27] LABS: CREATININE 0.8 mg/dL (0.7-1.3)
[2019-10-16 20:28] LABS: HEMATOCRIT 31.4 % (42.0-52.0); MCH 25.3 pg (26.0-34.0); MCHC 31.7 g/dL (28.0-37.0); MCV 79.6 fL (80.0-100.0); PLATELET COUNT 465 thou/uL (150-400); RBC 3.95 mil/uL (4.50-6.00); RDW 20.2 % (10.5-14.5); WBC 15.8 thou/uL (4.0-11.0)
[2019-10-16 20:32] LABS: CALCIUM 8.8 mg/dL (8.5-10.1); POTASSIUM 5.4 mmol/L (3.5-5.1)
[2019-10-16 20:58] LABS: ABSOLUTE NEUTROPHILS 11.1 thou/uL (1.4-8.2)
[2019-10-16 20:59] LABS: ANISOCYTOSIS 1+
[2019-10-16 22:05] VITALS: BP 103/59
--- NOTE | 2019-10-16 22:05 | NUR ---
HAND OFF TOOL PRINTED TO 3WEST AT THIS TIME
[2019-10-16 22:56] VITALS: BP 125/83
[2019-10-16 22:59] VITALS: BP 123/83
[2019-10-16] MEDS ORDERED: CIPROFLOXACIN250 M2 PO (23:13)
--- NOTE | 2019-10-16 23:46 | NUR ---
PATIENT WAS A NEW ADMISSION TO THE UNIT THIS SHIFT. HE ARRIVED VIA CART FROM THE ER AND WAS ABLE TO AMBULATE TO THE BED WITHOUT INCIDENT. PATIENT IS ALERT AND ORIENTED AND IS ABLE TO FULLY PARTICIPATE IN ADMISSION AND CALL APPROPRIATELY FOR NEEDS. CHIEF COMPLAINT IS PAIN FROM ABCESS WHICH IS BEING TREATED THROUGH ANTIBIOTICS AND PAIN MEDICATION. NURSE TO COMPLETE ADMISSION AND INITIATE PLAN OF CARE.
[2019-10-17] VITALS (17 sets, daily range): BP systolic 112–143; BP diastolic 39–98
[2019-10-17 09:38] LABS: HEMATOCRIT 36.1 % (42.0-52.0); HEMOGLOBIN 11.3 gm/dL (14.0-18.0); MCH 25.4 pg (26.0-34.0); MCHC 31.4 g/dL (28.0-37.0); MCV 80.8 fL (80.0-100.0); RBC 4.47 mil/uL (4.50-6.00); RDW 20.5 % (10.5-14.5); WBC 12.2 thou/uL (4.0-11.0)
[2019-10-17 09:49] LABS: INR 1.1; PROTIME 11.1 Seconds (9.3-11.4)
[2019-10-17 09:53] LABS: ALBUMIN 2.7 g/dL (3.4-5.0); CALCIUM 8.7 mg/dL (8.5-10.1); CREATININE 0.8 mg/dL (0.7-1.3); MAGNESIUM 1.9 mg/dL (1.8-2.4); POTASSIUM 4.2 mmol/L (3.5-5.1); TOTAL BILIRUBIN 0.5 mg/dL (<0.1-1.0); TOTAL PROTEIN 7.6 g/dL (6.4-8.2)
--- NOTE | 2019-10-17 17:37 | NUR ---
PT ASSESSMENTS DOCUMENTED. SINUS RYHTHM/TACHY ON THE MONITOR. COMPLAINS OF PAIN TO LEFT SIDE ABDOMEN. AREA TENDER, WARM AND RED. SPOKE WITH PHYSICIAN ABOUT ADMINISTRATION OF DILUADID APPROXIMATELY EVERY 3 HOURS, WILL ASSESS NEED FOR PO NARCOTICS TO HELP WTIH PAIN MANAGEMENT. TAKEN TO IR THIS AFTERNOON WITH [address] JACOBO. ORDERS TO CHECK I/O Q 8HOURS AND FLUSH WITH 5ML EVERYDAY. NO MEASURABLE OUTPUT AT THIS TIME. FLUIDS SENT TO LAB FOR MICRO WORK UP.
[2019-10-18 04:38] VITALS: BP 141/91
--- NOTE | 2019-10-18 04:59 | NUR ---
PT ABLE TO SLEEP OFF AND ON. REQUIRING MULTIPLE DOSES OF PAIN MEDICATION. PT CONTINUES SR/ST ON MONITOR. LEFT FLANK DRAINS REMAIN IN TACT AND WILL RECORD THE MINIMAL OUTPUT FROM THEM IN I&O's. PT CONTINUES ON MAINTENANCE IVFs AND ABX. AM LABS PENDING REVIEW.
[2019-10-18 05:09] LABS: HEMOGLOBIN 9.9 gm/dL (14.0-18.0); MCH 25.4 pg (26.0-34.0); MCHC 31.9 g/dL (28.0-37.0); MCV 79.8 fL (80.0-100.0); RBC 3.88 mil/uL (4.50-6.00); RDW 19.6 % (10.5-14.5); WBC 9.2 thou/uL (4.0-11.0)
[2019-10-18 05:19] LABS: CALCIUM 8.4 mg/dL (8.5-10.1); CREATININE 0.7 mg/dL (0.7-1.3); POTASSIUM 3.6 mmol/L (3.5-5.1)
[2019-10-18 07:58] VITALS: BP 142/97
[2019-10-18 11:04] VITALS: BP 126/88
[2019-10-18 15:21] VITALS: BP 128/91
--- NOTE | 2019-10-18 18:37 | NUR ---
CONT ON ABT FOR ABSCESS. PAIN HAS BEEN DIFFICULT TO CONTROL WITH ONE REGIME. SECOND REGIMEN ADDED AND IT IS SOMEWHAT EFFECTIVE. PATIENT IS ALERT ORIENTED X4. PLEASANT WITH CARE.
[2019-10-18 19:52] VITALS: BP 138/97
[2019-10-19 04:08] VITALS: BP 144/99
--- NOTE | 2019-10-19 07:51 | NUR ---
Patient regularly requested pain meds NOC. He reported his pain as 10/10 in his LLQ. With hydromorphone he rated his releif at 7/10. He declined his PO oxycodone because he didn't feel up to swallowing anything. Nursing will continue to monitor.
[2019-10-19 07:57] VITALS: BP 139/95
[2019-10-19 11:20] VITALS: BP 137/100
[2019-10-19 15:40] VITALS: BP 137/91
[2019-10-19 18:07] LABS: BODY FLUID AMYLASE 1738 U/L (())
[2019-10-19 19:14] VITALS: BP 155/104
--- NOTE | 2019-10-20 03:15 | NUR ---
Patient reported pain 05/14-8 LLQ NOC. RN administered pain meds PRN per orders. Patient had partial pain relief. Nursing will continue to monitor.
[2019-10-20 04:06] VITALS: BP 154/88
[2019-10-20 07:54] VITALS: BP 153/100
[2019-10-20 12:10] VITALS: BP 147/92
--- NOTE | 2019-10-20 13:39 | NUR ---
INITIAL ASSESSMENT: SW reviewed chart and spoke with nursing and attending physician due to length of stay. Pt was admitted from home due to retroperitoneal abscess/sepsis. Pt with chronic pancreatitis. Pt had drain placed in IR on 10/17 and has drain in place. Pt is currently on IV abx. SW met with pt at bedside. Introduced role of SW. Pt is alert/orientated x 4. Pt reports he lives at home with his . Prior to admission, pt was independent with ADLs. No use of DME. Pt states he has managed a drain at home in the past, and would be able to manage at home if needed. Pt agreeable with HH if needed. Pt's PCP is Dr. Rebeca Sanchez. Surgery following. SW is following to assist as needed with discharge planning.
[2019-10-20 16:37] VITALS: BP 155/97
--- NOTE | 2019-10-20 17:43 | NUR ---
VASCULAR ACCESS NOTE PATIENT CONSENTED FOR MIDLINE PLACEMENT. LEFT BRACHIAL VEIN WIDELY PATENT ON ULTRASOUND. PATIENT PREPPED AND DRAPED UNDER STERILE CONDITIONS. LIDOCAINE 3ML 1% GIVEN SUB Q INJECTION. VEIN CANNULATED WITH ONE ATTEMPT. GUIDEWIRE ADVANCED. VEIN DILATED. GUIDEWIRE REMOVED INTACT. 4FR SL MIDLINE TRIMMED TO 13CM. INSERTED TO 13CM INTERNAL WITH 0CM EXTERNAL. LINE FLUSHES AND DRAWS EASILY. PATIENT TOLERATED PROCEDURE WELL. LINE RELEASED FOR IMMEDIATE USE TO RN.
--- NOTE | 2019-10-20 19:22 | NUR ---
PT RECEIVED NEW PICC LINE IN LEFT UPPER ARM. BRADEN DIAZ. PT PROGRESSING TOWARDS PLAN OF CARE GOALS.
[2019-10-20 20:45] VITALS: BP 145/93
[2019-10-21 00:08] VITALS: BP 108/76
--- NOTE | 2019-10-21 05:34 | NUR ---
Patient reported pain through NOC and was administered pain medication PRN per order. Nursing will continue to monitor.
[2019-10-21 05:45] VITALS: BP 133/94
[2019-10-21 07:30] VITALS: BP 137/86
[2019-10-21 08:47] LABS: SOURCE ABSCESS
[2019-10-21 11:14] VITALS: BP 143/92
[2019-10-21 15:03] VITALS: BP 154/96
--- NOTE | 2019-10-21 15:37 | NUR ---
SW reviewed chart and spoke with nursing and attending physician. Pt has two drains in place. Pt may have drains removed/replaced tomorrow. SW met with pt at bedside to discuss discharge plan. Pt may need HH services if pt discharges home with drain in place. Pt is agreeable with HH services if needed. Pt would like to see if he will discharge with the drains in place, prior to allowing SW to send a HH referral. SW is following to assist as needed with discharge planning.
--- NOTE | 2019-10-21 17:13 | NUR ---
PATIENT HAS BEEN UP AND ABOUT FAMILITY WITH STEADY GAIT. PRN PAIN ADEQUATELY CONTROLLING PAIN AT THIS TIME. RESPIRATIONS ARE EVEN NON LABORED. PLEASANT WITH CARE.
[2019-10-21 19:27] VITALS: BP 117/72
[2019-10-22 07:36] VITALS: BP 123/70
--- NOTE | 2019-10-22 07:51 | NUR ---
PROGRESS PT A/O X4 UP AD NICK,VSS. MIDLINE TO SUNG INTACT FLUSHES WITHOUT DIFFICULTY AND HAS A BLOOD RETURN. TAKING FENTANYL AND OXYCODONE FOR PAIN WITH EFFECT, 2 DRAINS TO LEFT FLANK INTACT FLUSHED WITH 10 CC NS X2 THIS SHIFT 30 CC'S OF SEROUS CLOUDY DRAINAGE NOTED BILATERALLY. IV ANTIBIOTICS CONTINUE CONTINUE POC.
[2019-10-22 15:13] VITALS: BP 162/103
--- NOTE | 2019-10-22 17:50 | NUR ---
Assumed pt care at 7am.Pt in bed alert and oriented x4.Assessment completed. vss.Pt c/o left abdominal pain rated 8/10. pain shot given as ordered with relief.Dr Bennett and Willy here,order noted.Pt went for ct abdomen later this am and returned to room.Pt ambulated several times in hallways today.Will continue to monitor.
[2019-10-22 20:33] VITALS: BP 137/84
--- NOTE | 2019-10-23 05:47 | NUR ---
ASSUMED CARE AROUND 1930. AXOX4. BOTH DRAINS INTACT. PERSISTENT PAIN TO L FLANK WHERE DRAINS ARE PLACED. PAIN MANAGED PER MD ORDER. NO S/S ACUTE DISTRESS NOTED OR REPORTED AT THIS TIME. WILL CONT TO MOTNITOR FOR ANY CHANGES IN CONDITION.
[2019-10-23 08:00] VITALS: BP 142/90
--- NOTE | 2019-10-23 10:56 | NUR ---
DISCHARGE PLANNING. DISCHARGE PLAN IS TO HOME WITH HOME HEALTH SERVICES AND IV ANTIBIOTIC INFUSION. [facility] TO COVER PATIENTS IV INFUSION NEEDS. PATIENT REFERRAL SENT [facility] FOR HOME HEALTH SERVICES. CALL PLACED TO [facility] TO NOTIFY. SPOKE WITH SHANNAN, NOTIFIED OF IV ABX NEEDS. CALL PLACED TO [facility] LIA[facility]. MARCUS TO DO BEDSIDE CONSULTATION WITH PATIENT AND TO OBTAIN ALL ABX NEEDS FROM BEDSIDE RN. UNIT SW NOTIFIED. FOLLOWING.
--- NOTE | 2019-10-23 14:47 | NUR ---
CARE TEAM INDICATED THAT PT IS MEDICALLY STABLE TO DC HOME. CM SENT REFERRAL TO [facility] AND [facility] FOR NURSING AND IV ABX UPON DC. PT WILL BE DISHCARGING WITH [address] [facility] CAN ACCEPT PT. AWAITING FINAL IV ABX RECS FROM DR. BENITEZ. ONCE DETERMINED WITH FAX TO [facility] FOR THEM TO RUN BENEFIT AND DISCUSS WITH PT. CM TO FOLLOW INDICATED WITH DC PLANNING.
[2019-10-23] MEDS ORDERED: OXYCODONE HCL10 MG PO (15:02)
[2019-10-23] MEDS ORDERED: CULTURELLE KID1 EAC1 PO (15:09)
[2019-10-23] MEDS ORDERED: MERREM1 GM IV (15:09)
[2019-10-23 15:10] VITALS: BP 142/90
[2019-10-23 16:45] VITALS: BP 142/90
--- NOTE | 2019-10-23 16:49 | NUR ---
CARE TEAM INDICATED THAT PT IS TO DISCHARGE HOME WITH [facility] AND [facility]. PT IS TO DISCHARGE ON MERREM 1GM Q8. PT WILL OWE $30.00 PER DAY FOR SUPPLIES FOR $210.00 FOR ONE WEEK. CM PROVIDED FINIANCIAL HARDSHIP APPLICATION FOR PT TO COMPLETE IF NEEDED. [facility] NURSE TO COME TO HOSPITAL TO DO BEDSIDE TEACH AND DELIVER DRUG BETWEEN 5:00 AND 6:00. NO OTHER CM INTERVETNION INDICATED. CASE CLOSED.
--- NOTE | 2019-10-23 19:00 | NUR ---
Assumed pt care at 7am.Pt in bed resting and very eager to dc home today before shift change.Dr Branham here and said pt can dc home later this evening with home health.Pt took shower after breakfast and total bed change done. Dr Bennett here and dc order noted.Pt took abdominal xray later this evening. Carin rep here later this evening to educate pt on iv antibiotic for home use.Dc summary compiled and reviewed with pt.At 1900,pt dc home with family in [place] with midline in place for iv antibiotic.
== END 2019-10-23 19:19 | disposition home health service (06) | DRG 871 ==
LOC: ER 19:21 → 3W 22:12 → EROBS 22:12 → 3W 22:50 → 4W 10-21 17:50
PROVIDERS: Emergency Medicine; Hospitalist; Nurse Practitioner Acute Care; Radiology Vascular & Interventional Radiology; Specialist; ADMIT Hospitalist
PROC: 0W9H30Z Drainage of Retroperitoneum with Drainage Device, Percutaneous Approach (ICD-10-PCS; principal; 2019-10-17)
PROC: 05HY33Z Insertion of Infusion Device into Upper Vein, Percutaneous Approach (ICD-10-PCS; 2019-10-20)
PROC: B54NZZA Ultrasonography of Left Upper Extremity Veins, Guidance (ICD-10-PCS; 2019-10-20)
DX: A41.9 Sepsis, unspecified organism (principal); K68.19 Other retroperitoneal abscess; E43 Unspecified severe protein-calorie malnutrition; K86.1 Other chronic pancreatitis; K86.3 Pseudocyst of pancreas; F11.20 Opioid dependence, uncomplicated; I74.8 Embolism and thrombosis of other arteries; D61.818 Other pancytopenia; Z68.1 Body mass index [BMI] 19.9 or less, adult; E11.9 Type 2 diabetes mellitus without complications; J45.909 Unspecified asthma, uncomplicated; M10.9 Gout, unspecified; F17.210 Nicotine dependence, cigarettes, uncomplicated; I10 Essential (primary) hypertension; D50.9 Iron deficiency anemia, unspecified; I86.4 Gastric varices; F10.10 Alcohol abuse, uncomplicated; K59.03 Drug induced constipation; T40.2X5A Adverse effect of other opioids, initial encounter; D63.8 Anemia in other chronic diseases classified elsewhere; G89.29 Other chronic pain; R10.9 Unspecified abdominal pain; Z88.6 Allergy status to analgesic agent; Z88.0 Allergy status to penicillin; Y92.89 Other specified places as the place of occurrence of the external cause; Z79.899 Other long term (current) drug therapy
CPT/HCPCS: 10047; 10879; 27000

== ENCOUNTER 2019-10-26 10:43 | Observation (INO) | payer OTHER ==
[~2019-10-26] VITALS: Ht 170.2 cm; Wt 53.5 kg
[2019-10-26 10:43] VITALS: BP 140/91
[~2019-10-26 10:43] MED LIST changes: +CIPROFLOXACIN250 M2 PO; +CULTURELLE KID1 EAC1 PO; +LISINOPRIL PO; +MERREM1 GM IV; +OXYCODONE HCL10 MG PO; +TOPROL XL50 MG
[2019-10-26 14:47] LABS: ABSOLUTE NEUTROPHILS 2.3 thou/uL (1.4-8.2); CALCIUM 9.1 mg/dL (8.5-10.1); CREATININE 0.7 mg/dL (0.7-1.3); EOSINOPHILS 6.5 % (0.0-3.0); HEMATOCRIT 33.9 % (42.0-52.0); HEMOGLOBIN 10.5 gm/dL (14.0-18.0); MCHC 31.1 g/dL (28.0-37.0); MCV 80.4 fL (80.0-100.0); MONOCYTES 8.9 % (1.0-8.0); PLATELET COUNT 343 thou/uL (150-400); POLYS 48.6 % (36.0-66.0); POTASSIUM 3.9 mmol/L (3.5-5.1); RBC 4.21 mil/uL (4.50-6.00); RDW 20.4 % (10.5-14.5); WBC 4.7 thou/uL (4.0-11.0)
[2019-10-26 14:55] LABS: APTT 28.1 Seconds (24.5-32.8); INR 1.1; PROTIME 11.7 Seconds (9.3-11.4)
[2019-10-26 15:27] VITALS: BP 150/87
[2019-10-26 15:40] VITALS: BP 150/87
[2019-10-26 16:51] VITALS: BP 171/110
--- NOTE | 2019-10-26 17:53 | NUR ---
Patient admitted from ER at 1550. Patient was Discharged last with two drains to left side (R/T abcess). Patient has been getting Insfusions at home through [facility] in left arm. IV Team notified of this Midline, checked for patency. Midline is patent. Patient had a peripheral IV line placed in right antecubital; it is Saline locked. Vital signs are stable. Patient pleasant and cooperative during admission process. LSCTA, BS x's 4, abdomen is soft and non-tender, skin is clean, warm, dry and intact. Patient's pain is currently "partially" controlled. Awaiting orders from Dr Valenzuela. Will report to on-coming RN.
[2019-10-26 18:57] VITALS: BP 172/107
--- NOTE | 2019-10-26 23:02 | NUR ---
ASSUMED PT CARE AT APPROX 1950.PT C/O PAIN AND NAUSEA.SEC REPORTING CONSULTANT ON DUTY NOTIFIED,ORDER NOTED AND CARRIED OUT.PT WAS ASSIGNED TO ANOTHER NURSE AT APPROX 2150.
--- NOTE | 2019-10-27 02:48 | NUR ---
ASSUMED CARE FROM OF PATIENT , TRAFFIC CHECKER INDIRA CALLED FOR INCREASE PAIN MEDICATION, PT STATES HE IS ALLERGIC TO FENTANYL. PT DOUBLE OVER IN PAIN IN POSITION, LEFT FLANK TUBE INTACT WITH SMALL AMOUNT OF PINK TINGE DRAINAGE. AFTER PAIN MEDICATION GIVEN PT UP IN ROOM, NPO AFTER MN FOR PROCEDURE. PT RESTED WELL THROUGHOUT HOURLY ROUNDS WILL CONITNUE WITH CURRENT PLAN OF CARE AND WILL REPORT CHANGES.
[2019-10-27 03:23] VITALS: BP 144/86
[2019-10-27 08:09] VITALS: BP 156/89
--- NOTE | 2019-10-27 09:07 | NUR ---
ORDERS FOR EVAL AND TREAT. Pt UP AD NICK AND AMBULATING IN THE HALLS ON HIS OWN. Pt DECLINING FORMAL P.T. EVAL BUT IS SAFE UP AD NICK AND SAFE FOR HOME.
[2019-10-27] MEDS ORDERED: CULTURELLE KID1 EAC1 PO (10:54)
[2019-10-27 13:26] VITALS: BP 156/89
--- NOTE | 2019-10-27 13:46 | NUR ---
INITIAL ASSESSMENT: Pt evaluated for d/c planning needs. Reviewed chart and spoke with nurse and pt. Pt is alert and oriented. Pt was hospitalized and returned home on 10/23 with [facility] and [facility]. Pt lives at home with and was independent with ADL's. Pt was admitted on 10/26 with drain issues, which are resolved. Spoke with Salina at [facility] and Fareed at [facility]. Faxed requested information to home health. No other needs identified. Pt to continue with previous IVAB per Dr Bennett.
[2019-10-27 15:18] VITALS: BP 156/89
--- NOTE | 2019-10-27 16:00 | NUR ---
PT ASSESSED AT START OF SHIFT. PT WAS TO HAVE 2ND ABD DRAIN PLACED BUT DR. PATIÑO STATED PT DID NOT NEED. DR. BENITEZ IN AND DR. EDMONDSON AND ALL AGREED PT COULD DISCHARGE HOME AT THIS TIME AND CONTINUE TO HAVE IV ANTIBIOTICS PER DR. BENITEZ AND F/U. PT ATE AND HAD SOME ABD PAIN BUT STATED NOT WORSE THAN USUAL.
== END 2019-10-27 16:31 | disposition home health service (06) ==
LOC: ER 10:43 → 4S 14:34 → EROBS 14:34 → 4S 15:41
PROVIDERS: Emergency Medicine; ADMIT Internal Medicine
DX: T85.628A Displacement of other specified internal prosthetic devices, implants and grafts, initial encounter (principal); K86.1 Other chronic pancreatitis; E46 Unspecified protein-calorie malnutrition; D64.9 Anemia, unspecified; I86.4 Gastric varices
CPT/HCPCS: 10102

== ENCOUNTER 2019-11-05 11:16 | Inpatient (IN) | payer OTHER ==
[~2019-11-05] VITALS: Ht 170.2 cm; Wt 53.5 kg
[2019-11-05 11:17] VITALS: BP 122/78
[2019-11-05 12:19] LABS: ABSOLUTE NEUTROPHILS 6.3 thou/uL (1.4-8.2); BASOPHILS 0.6 % (0.0-2.0); EOSINOPHILS 6.4 % (0.0-3.0); HEMATOCRIT 34.9 % (42.0-52.0); HEMOGLOBIN 10.8 gm/dL (14.0-18.0); LYMPHOCYTES 17.8 % (24.0-44.0); MCH 25.6 pg (26.0-34.0); MCHC 30.9 g/dL (28.0-37.0); MCV 82.9 fL (80.0-100.0); MONOCYTES 9.8 % (1.0-8.0); PLATELET COUNT 241 thou/uL (150-400); POLYS 65.4 % (36.0-66.0); RBC 4.21 mil/uL (4.50-6.00); WBC 9.6 thou/uL (4.0-11.0)
[2019-11-05 12:32] LABS: CREATININE 0.9 mg/dL (0.7-1.3); POTASSIUM 4.4 mmol/L (3.5-5.1)
[2019-11-05 12:40] LABS: ALBUMIN 3.5 g/dL (3.4-5.0); TOTAL BILIRUBIN 0.2 mg/dL (<0.1-1.0); TOTAL PROTEIN 7.7 g/dL (6.4-8.2)
[2019-11-05 13:59] VITALS: BP 103/62
[2019-11-05 15:02] VITALS: BP 132/87
[2019-11-05 17:47] VITALS: BP 134/85
--- NOTE | 2019-11-05 18:09 | NUR ---
ASSUMED CARE OF THE PT AT 1615. PT IS AMBULATORY AND HAS A L AC IV DRY AND INTACT. PT REFUSED SCD'S AND STATES"I WILL NOT BE LABELED A FALL RISK, EVEN AFTER SX". PT IS NPO. BED IN LOWEST POSITION AND CALL LIGHT IS WITHIN REACH. PAIN CONTROLLED BY PAIN MEDICATION, SEE EMAR. WILL CONTINUE TO MONITOR THE PT.
[2019-11-05 19:57] VITALS: BP 149/95
--- NOTE | 2019-11-06 02:56 | NUR ---
ASSUMED PT CARE AT 1900. PT ADRESSED CONCERN OF MIDLINE LEAKING. DRESSING WAS CHANGED, LINE WAS FLUSHED BUT STILL LEAKING. CALLED ARMORED TRUCK DRIVER CLEAN RICE GRADER AND REEL TENDER AND DECIDED TO PULL IT. WILL WAIT FOR IV TEAM TO PLACE A NEW ONE IN AM. THEREFORE NOT RECIEVING ANTIBIOTICS OR IV PAIN MEDS. GIVEN ORAL PAIN MEDS ONCE, HAS NOT WANTED THEM SINCE. DR COSME IN ORDER FOR NPO AT MIDNIGHT, PT WAS ABLE TO EAT DINNER. SLEPT MOST OF THE SHIFT.
[2019-11-06 08:00] VITALS: BP 148/90
[2019-11-06 12:32] VITALS: BP 137/108
[2019-11-06 12:51] VITALS: BP 124/80
[2019-11-06 14:09] VITALS: BP 113/72
[2019-11-06 16:00] VITALS: BP 105/68
--- NOTE | 2019-11-06 16:19 | NUR ---
PT WAS ADM WITH ML IN SUNG BUT REMOVED LAST NIGHT DUE TO LEAKING AT SITE. PT IS AGREEABLE TO ANOTHER ML PLACEMENT FOR ANTIBIOTICS. SUNG BRACHIAL WIDELY PATENT WITH USG. 4FR POWER MIDLINE TRIMMED TO 14CM INSERTED TO 2CM EXTERNAL WITH BRISK BR. ML RELEASED FOR IMMEDIATE USE PER PROTOCOL TO LASHAY HERNANDEZ
--- NOTE | 2019-11-06 16:21 | NUR ---
INITIAL ASSESSMENT: Pt evaluated for d/c planning needs. Reviewed chart and spoke with nurse, pt and spouse. Pt is alert and oriented. Pt lives in house with spouse and was independent with ADL's prior to admission. Pt has several admissions to [facility] in the past few months. Pt is currently on service with [facility] health with [facility] for home infusion. Pt plans on returning home on d/c from hospital. Will remain available to assist as needed. Notified [facility] of admission. [facility] Home Health [phone]; fax [phone] [facility] [phone]; fax [phone]
[2019-11-06 20:10] VITALS: BP 159/92
--- NOTE | 2019-11-07 03:35 | NUR ---
ASSUMED PT CARE AT 1900. PT REFUSED PM MEDS. UP AD NICK, AT BEGINNING OF SHIFT PT HAD UNHOOKED HIMSELF FROM IV PUMP. PT WAS ASKED TO CALL NEXT TIME. SAT WITH PT AND TALKED A LOT ABOUT GIVING HIMSELF THE ANTIBIOTICS AT HOME. EDUCATION PROVIDED ON HOW TO AVOID AIR IN LINE. PAIN MEDS GIVEN WHEN REQUESTING, PT NOW ASLEEP.
[2019-11-07 04:19] VITALS: BP 126/78
[2019-11-07 07:30] VITALS: BP 147/97
[2019-11-07 16:00] VITALS: BP 150/92
[2019-11-07 16:04] VITALS: BP 147/97
--- NOTE | 2019-11-07 16:06 | NUR ---
Following for d/c planning needs. Spoke with [facility] and they are able to accept pt back on service on d/c. Spoke with Fareed, pharmacist with [facility], and she said pt has 2 day supply of Meropenem at home, if he returns home on same antibiotic. RN will need to call [facility] and [facility] to arrange resumption of care, and fax orders to both. [facility] [phone]; fax [phone] [facility] [phone]; fax [phone]
--- NOTE | 2019-11-07 18:36 | NUR ---
Assumed care of pt at 0700. Pt a&ox4. IVF and antibiotics infusing. Dressing changed per order. Pain med administered prior to the dressing change. Pancreatic enzymes ordered to be administered prior to meals. Up ad olegario. Call light within reach.
[2019-11-07 20:18] VITALS: BP 142/95
--- NOTE | 2019-11-08 02:37 | NUR ---
NOC ASSUMED CARE OF PT @1900 PT ASSESSED AT START OF SHIFT A&OX4 FAMILY AT BEDSIDE ON ASSESSMENT. DRESSING INTACT IN LFT SIDE OF ABD. PAIN MEDS GIVENX2 THIS SHIFT. PT AD NICK AND CALLS TO LET NEEDS KNOWN. MIDLINE INTACT AND FLUIDS INFUSING. WILL CONT WITH POC TILL EOS.
[2019-11-08 04:17] LABS: HEMATOCRIT 29.3 % (42.0-52.0); HEMOGLOBIN 9.4 gm/dL (14.0-18.0); MCV 81.2 fL (80.0-100.0); RBC 3.61 mil/uL (4.50-6.00); RDW 20.7 % (10.5-14.5); WBC 7.3 thou/uL (4.0-11.0)
[2019-11-08 05:50] VITALS: BP 137/80
[2019-11-08 06:37] LABS: CREATININE 0.8 mg/dL (0.7-1.3); POTASSIUM 3.9 mmol/L (3.5-5.1)
[2019-11-08 08:03] VITALS: BP 137/88
--- NOTE | 2019-11-08 14:36 | NUR ---
PT RESTING IN BED WATCHING TV HAS HAD PRN PAIN MEDS AND STATES IS COMFORTABLE AT THIS TIME. IV FLUIDS ORDERED. HAS DRESSING TO LEFT UPPER SIDE TO BE CHANGED AT THIS TIME AWAITING LIDOCAINE FROM PHARMACY. PT IS CONT OF B&B. ROOM AIR LUNGS CTA NO COUGH. PT HAD FAMILY TO VISIT EARLIER.
[2019-11-08 17:25] VITALS: BP 131/85
[2019-11-08 20:10] VITALS: BP 154/41
--- NOTE | 2019-11-09 01:09 | NUR ---
PT AMBULATING TO BATHROOM INDEPENDENTLY AND IS TOLERATING WELL. DILAUDID AND OXY PROVIDING PAIN RELIEF. DENIES NAUSEA. RESTING COMFORTABLY. NO NEEDS VOICED. CALL LIGHT WITHIN REACH. WILL CONTINUE TO PROVIDE FREQUENT OBSERVATION.
[2019-11-09 04:47] VITALS: BP 144/91
[2019-11-09 08:30] VITALS: BP 141/90
--- NOTE | 2019-11-09 09:58 | NUR ---
PT RESTING IN BED GIVEN AM MEDS. IV FLUIDS INFUSING ORDERED. WAS GIVEN PRN PAIN MEDS EARLIER. HAS TX TO LEFT SIDE THAT WILL BE DONE LATER. PT STATES WANTS THEN HE IS TIRED THIS AM.PT IS PLEASANT AND COOPERATIVE WITH CARE.
[2019-11-09 17:32] VITALS: BP 161/91
[2019-11-09 19:12] VITALS: BP 148/94
--- NOTE | 2019-11-10 03:44 | NUR ---
PT AMBULATING TO BATHROOM INDEPENDENTLY AND IS TOLERATING WELL. DILAUDID AND OXY PROVIDING PAIN RELIEF. RESTING COMFORTABLY. NO NEEDS VOICED. CALL LIGHT WITHIN REACH. WILL CONTINUE TO PROVIDE FREQUENT OBSERVATION.
[2019-11-10 04:13] VITALS: BP 162/94
[2019-11-10 08:02] VITALS: BP 156/94
--- NOTE | 2019-11-10 10:15 | NUR ---
Following for d/c planning needs. Received order for d/c. Asked menu planner to fax infor to [facility] and [facility] and call with d/c plans. No other needs identified.
[2019-11-10 13:02] VITALS: BP 147/97
--- NOTE | 2019-11-10 13:12 | NUR ---
PT CARE ASSUMED AT 0700. A&Ox4. PT UP AND MOVING AROUD THE IN THE HALLWAYS. PT RECEIVED IV ANTIBIOTICS AND IS DISCHARGING WITH HOME HEALTH. ORDERS ARE IN. PT EDUCATED ON WOUND DRESSING CHANGE. DRESSING CHANGE PERFORMED. PT WILL GO HOME WITH PICC LINE IN PLACE. PT. PAIN CONTROLLED WELL WITH PAIN MEDICATION. CALL LIGHT IN REACH.
--- NOTE | 2019-11-10 17:08 | NUR ---
FAXED DC ORDERS/SUMMARY TO [facility] RECEIVED CONFIRMATION AND SPOKE WITH SHAHZAD IN INTAKE SHE WILL NOTIFY PT TIME OF VISITS., FAXED DC ORDERS/SUMMARY TO [facility]. SPOKE WITH INTAKE AND THEY RECEIVED DC ORDERS AND WILL NOTIFY PT TIME OF VISITS.
== END 2019-11-10 13:49 | disposition home health service (06) | DRG 357 ==
LOC: ER 11:16 → 4S 13:56 → EROBS 13:56 → 4S 15:19
PROVIDERS: Emergency Medicine; ADMIT Internal Medicine
PROC: 0W9H0ZZ Drainage of Retroperitoneum, Open Approach (ICD-10-PCS; principal; 2019-11-06)
PROC: 05H933Z Insertion of Infusion Device into Right Brachial Vein, Percutaneous Approach (ICD-10-PCS; 2019-11-06)
DX: K68.19 Other retroperitoneal abscess (principal); K86.1 Other chronic pancreatitis; F11.20 Opioid dependence, uncomplicated; K86.3 Pseudocyst of pancreas; E46 Unspecified protein-calorie malnutrition; Z68.1 Body mass index [BMI] 19.9 or less, adult; J45.909 Unspecified asthma, uncomplicated; M10.9 Gout, unspecified; I10 Essential (primary) hypertension; F17.210 Nicotine dependence, cigarettes, uncomplicated; G89.4 Chronic pain syndrome; R10.9 Unspecified abdominal pain; D50.9 Iron deficiency anemia, unspecified; Z88.6 Allergy status to analgesic agent; Z88.0 Allergy status to penicillin; Z88.8 Allergy status to other drugs, medicaments and biological substances; Z79.899 Other long term (current) drug therapy
CPT/HCPCS: 10195; 27000; 50010; 50101; 50386; 50403; 56527; 57103; 62110; 62900; 70005

== ENCOUNTER → 2019-11-19 | Outpatient (CLI) | payer OTHER ==
[2019-11-19 11:30] VITALS: BP 12/60
--- NOTE | 2019-11-19 11:39 | NUR ---
PATIENT HERE TO REPLACE MIDLINE- DR. BENITEZ OFFICE NOTIFIED ON MED AND HOW LONG THERAPY WILL BE AND IF PICC OR MIDLINE IS NEEDED AT THIS TIME- VAT RN IS HERE TO EVALUATE THE PATIENT
--- NOTE | 2019-11-19 11:45 | NUR ---
NONFUNTIONING MIDLINE REMOVED AND PRESSURE HELD PER POLICY, DR. BENITEZ CALLED AND SUGGESTED A PERIPHERAL IV NEEDS TO BE PLACED AT THIS TIME AND PATIENT TO FOLLOW UP WITH DR. BENITEZ IN THE OFFICE THIS AFTERNOON
--- NOTE | 2019-11-19 11:59 | NUR ---
PT IN FOR ML REPLACEMENT. THIS IS THE SECOND MIDLINE IN LESS THAN A MONTH. USED US TO SCAN THE TIP OF THE ML IN HIS LOLIS, NON-COMPRESSIBLE AND PT STATES IT LEAKS AND THE IV MEDS DON'T RUN THROUGH AT HOME. PAGED DR BENITEZ TO ASK FOR A PICC ORDER OVER A ML SO THIS INCIDENT DOESN'T REOCCUR. DR BENITEZ CALLED BACK AND WANTED A PIV PLACED. PT WILL SEE DR BENITEZ IN THE OFFICE TODAY TO EVALUATE IF INDEED NEEDS ANOTHER ACCESS. PT HAS MISSED IV ABX DOSES X2 DAYS AT THIS TIME.
== END ==
LOC: OPONC 10:56
DX: K86.1 Other chronic pancreatitis (principal)
CPT/HCPCS: 91018

== ENCOUNTER 2019-12-03 10:02 | Emergency (ER) | payer OTHER ==
[~2019-12-03] VITALS: Ht 170.2 cm; Wt 50.8 kg
--- NOTE | ~2019-12-03 | EKG ---
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
[2019-12-03] MEDS ORDERED: OXYCODONE HCL30 MG PO (10:37)
[2019-12-03] MEDS ORDERED: LIPITOR40 MG PO (10:38)
[2019-12-03] MEDS ORDERED: LOPRESSOR50 MG PO (10:38)
[2019-12-03] MEDS ORDERED: CEFDINIR300 MG PO (10:39)
[2019-12-03 10:40] LABS: URINE BILIRUBIN NEGATIVE (Negative); URINE BLOOD NEGATIVE (Negative); URINE CLARITY CLEAR; URINE COLOR YELLOW; URINE GLUCOSE-RANDOM* NEGATIVE (Negative); URINE KETONES NEGATIVE (Negative); URINE LEUKOCYTES-REFLEX NEGATIVE (Negative); URINE NITRITE-REFLEX NEGATIVE (Negative); URINE PROTEIN (DIPSTICK) NEGATIVE (Negative); URINE SPECIFIC GRAVITY 1.015 (1.005-1.035); URINE UROBILINOGEN 0.2 E.U./dl (0.2-1.0)
[2019-12-03 11:14] LABS: ABSOLUTE NEUTROPHILS 7.6 thou/uL (1.4-8.2); BASOPHILS 0.7 % (0.0-2.0); EOSINOPHILS 5.7 % (0.0-3.0); HEMATOCRIT 34.9 % (42.0-52.0); HEMOGLOBIN 11.1 gm/dL (14.0-18.0); LYMPHOCYTES 12.2 % (24.0-44.0); MCH 25.9 pg (26.0-34.0); MCHC 31.8 g/dL (28.0-37.0); MCV 81.7 fL (80.0-100.0); MONOCYTES 10.9 % (1.0-8.0); PLATELET COUNT 192 thou/uL (150-400); POLYS 70.5 % (36.0-66.0); RBC 4.27 mil/uL (4.50-6.00); RDW 19.3 % (10.5-14.5); WBC 10.7 thou/uL (4.0-11.0)
[2019-12-03 11:24] LABS: ANION GAP 7 mmol/L (7-16); BUN 10 mg/dL (7-18); CHLORIDE 101 mmol/L (98-107); CO2 28 mmol/L (21-32); CREATININE 0.8 mg/dL (0.7-1.3); GLUCOSE 89 mg/dL (74-106); SODIUM 136 mmol/L (136-145)
[2019-12-03 11:36] LABS: ALBUMIN 3.3 g/dL (3.4-5.0); LIPASE 365 U/L (73-393); SGOT 8 U/L (15-37); SGPT 12 U/L (30-65); TOTAL BILIRUBIN 0.4 mg/dL (<0.1-1.0); TOTAL PROTEIN 7.7 g/dL (6.4-8.2); TROPONIN-I <0.06 ng/mL (<0.06)
[2019-12-03 11:45] LABS: ANISOCYTOSIS 2+
[2019-12-03 14:23] VITALS: BP 112/73
== END 2019-12-03 14:47 | disposition home or self-care (01) ==
LOC: ER 10:02
PROVIDERS: Emergency Medicine
DX: R10.84 Generalized abdominal pain (principal); R11.2 Nausea with vomiting, unspecified

== ENCOUNTER 2020-01-15 11:39 | Emergency (ER) | payer MEDICARE, OTHER ==
[~2020-01-15] VITALS: Ht 170.2 cm; Wt 53.5 kg
[~2020-01-15 11:39] MED LIST changes: +CEFDINIR300 MG PO; +LIPITOR40 MG PO; +LOPRESSOR50 MG PO
[2020-01-15 12:45] LABS: URINE BLOOD NEGATIVE (Negative); URINE CLARITY CLEAR; URINE COLOR YELLOW; URINE GLUCOSE-RANDOM* NEGATIVE (Negative); URINE KETONES 2+ (Negative); URINE LEUKOCYTES-REFLEX NEGATIVE (Negative); URINE NITRITE-REFLEX NEGATIVE (Negative); URINE PROTEIN (DIPSTICK) 1+ (Negative); URINE SPECIFIC GRAVITY >= 1.030 (1.005-1.035)
[2020-01-15 12:55] LABS: ICTOTEST (BILI CONFIRMATORY) Negative (Negative); URINE BILIRUBIN NEGATIVE (Negative)
[2020-01-15 13:05] LABS: SQUAMOUS 0-3 Few /LPF (0-3); URINE RBC 0-2 Rare /HPF (0-2)
[2020-01-15 13:07] LABS: CASTS None Seen /LPF (None Seen)
[2020-01-15 13:08] LABS: BACTERIA-REFLEX 1-9 Few /HPF (None Seen); CRYSTALS None Seen /LPF (None Seen); URINE WBC-REFLEX 0-5 Rare /HPF (0-5)
[2020-01-15 14:29] LABS: HEMATOCRIT 39.7 % (42.0-52.0); HEMOGLOBIN 12.6 gm/dL (14.0-18.0); MCH 24.8 pg (26.0-34.0); MCHC 31.7 g/dL (28.0-37.0); MCV 78.1 fL (80.0-100.0); PLATELET COUNT 392 thou/uL (150-400); RBC 5.08 mil/uL (4.50-6.00); RDW 17.5 % (10.5-14.5)
[2020-01-15 14:38] LABS: ANION GAP 10 mmol/L (7-16); BUN 23 mg/dL (7-18); CALCIUM 9.5 mg/dL (8.5-10.1); CHLORIDE 98 mmol/L (98-107); CO2 27 mmol/L (21-32); CREATININE 0.8 mg/dL (0.7-1.3); GLUCOSE 86 mg/dL (74-106); POTASSIUM 4.1 mmol/L (3.5-5.1); SODIUM 135 mmol/L (136-145)
[2020-01-15 14:48] LABS: ALBUMIN 3.3 g/dL (3.4-5.0); LIPASE 400 U/L (73-393); SGOT 10 U/L (15-37); SGPT 5 U/L (30-65); TOTAL BILIRUBIN 0.4 mg/dL (<0.1-1.0); TOTAL PROTEIN 7.9 g/dL (6.4-8.2); TROPONIN-I <0.06 ng/mL (<0.06)
[2020-01-15 16:09] LABS: ABSOLUTE NEUTROPHILS 4.2 thou/uL (1.4-8.2); ANISOCYTOSIS 1+
[2020-01-15 16:10] LABS: HYPOCHROMASIA 1+; MICROCYTES 1+
[2020-01-15 16:40] VITALS: BP 157/97
--- NOTE | 2020-01-15 16:45 | EKG ---
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 Instructor: [facility] : 1970 Requested By: Jesus Johnson Order Number: [id number] MD: Zhou Vera Measurements Intervals [place] Rate: 54 P: 72 DE: 125 QRS: 54 QRSD: 89 T: 61 QT: 435 QTc: 413 Interpretive Statements Sinus rhythm ST elev, probable normal early repol pattern Compared to ECG 12/03/2019 11:07:37 ST (T wave) deviation now present Electronically Signed On 01-15-2020 16:44:08 CDT by Zhou Vera [email or web address] <ELECTRONICALLY SIGNED> By: Zhou Vera MD 01/15/20 1644 1245 1245 Zhou Vera MD /EPI
== END 2020-01-15 16:40 | disposition home or self-care (01) ==
LOC: ER 11:39
PROVIDERS: Emergency Medicine
DX: K86.1 Other chronic pancreatitis (principal); F11.20 Opioid dependence, uncomplicated; K59.00 Constipation, unspecified; R11.2 Nausea with vomiting, unspecified; G89.29 Other chronic pain; F17.210 Nicotine dependence, cigarettes, uncomplicated; J45.909 Unspecified asthma, uncomplicated; M10.9 Gout, unspecified; I10 Essential (primary) hypertension; Z88.5 Allergy status to narcotic agent; Z88.6 Allergy status to analgesic agent; Z88.0 Allergy status to penicillin; Z79.899 Other long term (current) drug therapy; Z98.890 Other specified postprocedural states

== ENCOUNTER 2020-04-04 10:47 | Inpatient (IN) | payer MEDICARE, OTHER ==
[~2020-04-04] VITALS: Ht 170.2 cm; Wt 50.0 kg
[2020-04-04 10:50] VITALS: BP 148/97
[2020-04-04 11:23] LABS: ABSOLUTE NEUTROPHILS 5.3 thou/uL (1.4-8.2); BASOPHILS 0.9 % (0.0-2.0); EOSINOPHILS 1.6 % (0.0-3.0); HEMATOCRIT 37.9 % (42.0-52.0); HEMOGLOBIN 12.4 gm/dL (14.0-18.0); LYMPHOCYTES 18.3 % (24.0-44.0); MCH 25.6 pg (26.0-34.0); MCHC 32.6 g/dL (28.0-37.0); MCV 78.4 fL (80.0-100.0); MONOCYTES 4.2 % (1.0-8.0); PLATELET COUNT 324 thou/uL (150-400); RBC 4.84 mil/uL (4.50-6.00); RDW 17.6 % (10.5-14.5); WBC 7.1 thou/uL (4.0-11.0)
[2020-04-04 11:36] LABS: CALCIUM 8.8 mg/dL (8.5-10.1); POTASSIUM 3.8 mmol/L (3.5-5.1)
[2020-04-04 11:41] LABS: ALBUMIN 3.4 g/dL (3.4-5.0); TOTAL BILIRUBIN 0.4 mg/dL (0.2-1.0)
[2020-04-04 12:58] LABS: URINE BLOOD NEGATIVE (Negative); URINE CLARITY CLEAR; URINE COLOR YELLOW; URINE GLUCOSE-RANDOM* NEGATIVE (Negative); URINE KETONES 1+ (Negative); URINE LEUKOCYTES-REFLEX NEGATIVE (Negative); URINE NITRITE-REFLEX NEGATIVE (Negative); URINE PROTEIN (DIPSTICK) NEGATIVE (Negative); URINE UROBILINOGEN 0.2 E.U./dl (0.2-1.0)
[2020-04-04 13:02] LABS: ICTOTEST (BILI CONFIRMATORY) Negative (Negative); SSA (PROTEIN CONFIRMATORY) NEGATIVE (Negative); URINE BILIRUBIN NEGATIVE (Negative)
[2020-04-04 16:39] VITALS: BP 151/94
[2020-04-04 17:11] VITALS: BP 148/97
--- NOTE | 2020-04-04 19:38 | NUR ---
ASSUMED CARE APPROX 1730. PT ADMITTED TO THIS UNIT FROM ED. PT ALERT AND ORIENTED X4. ASSESSMENT CHARTED AND VSS. PT C/O ABDOMINAL PAIN UPON ARRIVAL. ADVISED THAT PAIN MEDICATION ISN'T DUE AT THIS TIME. PT VOICED UNDERSTANDING. EVENING NURSE INFORMED. TELE MONITOR PLACED ON PT. NO SIGNS OF RESPIRATORY DISTRESS OR SHORTNESS OF AIR NOTED. CONSENTS SIGNED AND PLACED IN CHART.
[2020-04-04 20:08] VITALS: BP 145/67
[2020-04-05 00:01] VITALS: BP 127/95
--- NOTE | 2020-04-05 01:32 | NUR ---
NOTIFIED ULICES DENNIS THAT PATIENT REFUSED SCD HOSE. PATIENT UP AD NICK IN ROOM AND LEMON. NO NEW ORDERS AT THIS TIME.
[2020-04-05 03:52] VITALS: BP 127/92
[2020-04-05 04:46] LABS: HEMATOCRIT 34.6 % (42.0-52.0); HEMOGLOBIN 11.2 gm/dL (14.0-18.0); MCH 25.8 pg (26.0-34.0); MCHC 32.3 g/dL (28.0-37.0); MCV 79.8 fL (80.0-100.0); RBC 4.33 mil/uL (4.50-6.00); RDW 17.5 % (10.5-14.5); WBC 5.8 thou/uL (4.0-11.0)
[2020-04-05 04:50] LABS: CALCIUM 8.2 mg/dL (8.5-10.1); CREATININE 0.9 mg/dL (0.7-1.3)
--- NOTE | 2020-04-05 05:31 | NUR ---
SLEPT PART OF SHIFT. STATES HE STAYS UP AT [facility]. UP AD NICK IN ROOM WITH STEADY GAIT. FREQUENT COMPLAINTS OF ABDOMINAL PAIN AND NAUSEA. MEDICATIONS GIVEN WITH NOTED RELIEF. WORKING ON GOALS AND PLAN OF CARE FOR [facility]. PROGRESSING SLOWLY. CONTINUE TO ASSES.
[2020-04-05 07:50] VITALS: BP 121/72
[2020-04-05 17:00] VITALS: BP 121/77
--- NOTE | 2020-04-05 17:01 | NUR ---
ASSUMMED PT CARE AT APPROXIMATELY 0700. PT A&O X4. ASSESSMENT CHARTED. FALL PRECAUTIONS IN PLACE. ASSESSMENT CHARTED. PT AMBULATES STEADY/INDEPENDENT. PT DENIES HAVING CHEST PAIN. PT DENIES HAVING SOB. PT STATED HE HAD ACUTE PAIN. PT RECIEVED ANALGESICS. PT STATED ANALGESICS DID NOT RELIEVE PAIN. INFORMED DR. WHITEHEAD. DR. WHITEHEAD ORDERED MEDS. IMPLEMENTED NEW MEDS. PT STATED PAIN WAS RELIEVED. VITAL SIGNS STABLE. PT COMFORTABLE IN BED. PT DENIES HAVING FURTHER CONCERNS. PT TOLERATING ADVANCED DIET. ENCOURAGED PT TO EAT AND DRINK FLUIDS.
[2020-04-05 20:40] VITALS: BP 122/73
[2020-04-06 03:20] VITALS: BP 120/72
--- NOTE | 2020-04-06 03:57 | NUR ---
PT TRANSFERRED FROM AROUND 1999, PT IS AWAKE, ALERT AND ORIENTEDX4, MAKES NEEDS KNOWN, DENIES CHEST PAIN OR SOB, C/O LEFT QUADRANT PAIN, MEDICATIONS GIVEN WITH PARTIAL RELIEF, C/O OF NAUSEA, MEDICATIONS GIVEN PRN, NO FURTHER COMPLAINS, VSS, LAYING IN BED WATCHING TV AT THIS TIME. NO DISTRESS NOTED, WILL CONTINUE TO MONITOR
[2020-04-06 07:05] VITALS: BP 133/79
[2020-04-06] MEDS ORDERED: ROXICODONE30 MG PO (13:25)
--- NOTE | 2020-04-06 15:29 | NUR ---
ASSESSMENT: CM REVIEWED CHART AND SPOKE WITH PT. PT IS ALERT AND ORIENTED X4. PT WAS ADMITTED WITH ACUTE PANCREATITIS. PT REPORTS HE LIVES AT HOME WITH HIS IN A HOUSE. PT REPORTS HAVING 6 STEPS WITH HANDRAILS TO ENTER AND ABOUT ANOTHER 8 STEPS WITH HANDRAILS TO THE UPPER FLOOR. PT REPORTS HE AMBULATES INDEPENDENTLY. PT REPORTS HE IS INDEPENDENT WITH ADLS. PT REPORTS HE HAS HAD HH IN THE PAST DUE TO HAVING A MIDLINE AND STATES IT WAS [facility]. CM DISCUSSED ROLE. PT STATES HE DOES NOT ANTICIPATE HAVING ANY NEEDS AT DISCHARGE. CM WILL CONTINUE TO FOLLOW TO ASSIST NEEDED.
[2020-04-06 15:55] VITALS: BP 133/79
--- NOTE | 2020-04-06 16:00 | NUR ---
PT ASSESSED AT START OF SHIFT. PT ADVANCED TO SOFT DIET AND TAKING PO ENZYMES NOW. SOME PAIN AND NAUSEA BUT IMPROVED LATER. DISCHARGED W/ PAIN MED RX TO F/U AT [facility] FOR APPT.
== END 2020-04-06 16:12 | disposition home or self-care (01) | DRG 438 ==
LOC: ER 10:47 → EROBS 16:51 → 2N 16:51 → 4S 04-05 20:09
PROVIDERS: Emergency Medicine; ADMIT Hospitalist; ATTEND Hospitalist
DX: K85.90 Acute pancreatitis without necrosis or infection, unspecified (principal); E43 Unspecified severe protein-calorie malnutrition; Z68.1 Body mass index [BMI] 19.9 or less, adult; K86.3 Pseudocyst of pancreas; K51.50 Left sided colitis without complications; F11.20 Opioid dependence, uncomplicated; K86.1 Other chronic pancreatitis; J45.909 Unspecified asthma, uncomplicated; M10.9 Gout, unspecified; I10 Essential (primary) hypertension; F17.210 Nicotine dependence, cigarettes, uncomplicated; I86.4 Gastric varices; K20.9 Esophagitis, unspecified; E11.9 Type 2 diabetes mellitus without complications; Z96.89 Presence of other specified functional implants; K86.89 Other specified diseases of pancreas; G89.4 Chronic pain syndrome; Z79.899 Other long term (current) drug therapy; Z88.5 Allergy status to narcotic agent; Z88.0 Allergy status to penicillin; Z88.8 Allergy status to other drugs, medicaments and biological substances; Z91.018 Allergy to other foods
CPT/HCPCS: 10081; 10102; 10797

== ENCOUNTER 2020-05-01 17:17 | Inpatient (IN) | payer MEDICARE, OTHER ==
[~2020-05-01] VITALS: Ht 170.2 cm; Wt 46.9 kg
--- NOTE | ~2020-05-01 | HC ---
[facility] [place] [address] CONSULTATION Name: STEPHANIE TODD Room #: 442-P ADM IN M.R.#: [id number] Admission: 05/01/20 Attend Phys: Felix Rios MD Discharge: Date of : 68 Report #: [id number] THIS REPORT FOR: cc: Rebeca Sanchez MD,Adeel Alvarez MD, MD ~ CC: Felix Sanchez REASON FOR CONSULTATION: Abdominal pain. BACKGROUND: The patient is a 49-year-old black male who presented to the Emergency Room with abdominal pain, nausea and vomiting. He does have a complicated past medical history with chronic pancreatitis, pancreatic pseudocysts and retroperitoneal abscess for which he undergone periodic procedures. On Sunday04/30/2020, he had undergone EGD or ERCP with replacement of a stent. He has been undergone procedures for drainage of a cyst and has had several procedures with previous procedure 6 weeks ago. He had previously been hospitalized at [facility] 04/04/2020 to 04/06/2020 for chronic pancreatitis. Although, he did well ___ he has had abdominal pain developing after procedures in the past, not at his procedure 6 weeks ago, but the procedure prior to that time may have required hospitalization. With development of pain soon after his procedure, he reported to [facility] Emergency Room, but left the ER after 4 hours. On his return home, he developed nausea and vomiting that persisted throughout the night. He relates that he presented to the Emergency Room at 5:00 p.m. yesterday. At this time, he continues to have upper abdominal pain, but this seems better controlled and he is alert and oriented and able to move easily out of his bed without obvious pain. He has had no fevers or chills. PAST MEDICAL HISTORY: He does have a history of chronic pancreatitis, pancreatic pseudocysts. He has had a retroperitoneal abscess drained by IR x 2. He has maintained abstinence from alcohol since his diagnosis of pancreatitis in 2005. He also has a history of hypertension, asthma, and gout. ALLERGIES: MORPHINE, FENTANYL, NUTS, PENICILLIN, LINEZOLID. HOME MEDICATIONS: Oxycodone p.r.n., fluticasone 1 gram inhaler each day, pantoprazole 40 mg per day, Zofran 8 mg t.i.d. p.r.n. nausea, Ventolin inhaler p.r.n., Marinol 2.5 mg p.o. b.i.d. olopatadine eye drops b.i.d., metoprolol 1 tablet p.o. b.i.d., Megace 400 mg per day, Pepcid 40 mg each morning, Symbicort 160 mcg inhaler b.i.d., Creon 36,000 units 1 with each meal, ferrous sulfate 325 mg p.o. b.i.d., promethazine p.r.n. and Remeron 30 mg at bedtime. [address] [address] CONSULTATION Name: STEPHANIE TODD Room #: 442-P [facility] IN M.R.#: [id number] Admission: 05/01/20 Attend Phys: Felix Rios MD Discharge: Date of : 68 Report #: [id number] SOCIAL HISTORY: He does smoke cigarettes. He does not currently drink alcohol. REVIEW OF SYSTEMS: He denied any fevers or chills. Weight has been stable recently. He denies chest pain, coughing, wheezing or shortness of breath. GI: As per HPI. He denies dysuria or hematuria. PHYSICAL EXAMINATION: GENERAL: He appears alert and in no acute distress, alert and appropriate in conversation. VITAL SIGNS: Afebrile, blood pressure 133/90, pulse 63. HEENT: No scleral icterus. NECK: Supple, without lymphadenopathy. CARDIOVASCULAR: Heart rate and rhythm regular, without murmur. LUNGS: Clear to auscultation. ABDOMEN: Soft, nondistended with no obvious hepatosplenomegaly. He does have moderate tenderness to palpation in the epigastrium. EXTREMITIES: He has no significant peripheral edema. LABORATORY DATA: On 04/2007. White blood cell count 8.4, hemoglobin 13.4, MCV 77.5, platelet count 368,000. Initial metabolic profile was unremarkable. Serum lipase was 333, not elevated. CT abdomen and pelvis revealed ill definition of the pancreas, possibly suggesting pancreatitis, calcifications in the distal pancreatic body and tail, suggesting chronic pancreatitis, mild prominence of the common bile duct and the presence of a loop style drain within the duodenum, which extends back through the pancreatic duct into the mid pancreatic body, and large varices along the fatima of the stomach. IMPRESSION: 1. Acute abdominal pain after a recent ERCP and change of pancreatic stent. 2. Chronic pancreatitis with pseudocyst and history of abscess. 3. Chronic alcoholism, currently abstinent. RECOMMENDATIONS: 1. Pain management. 2. Keep n.p.o. for now. 3. Request a procedure report from most recent intervention per [facility]. By: 1035 [id number] Adeel Iglesias MD /nt
[~2020-05-01 17:17] MED LIST changes: +ROXICODONE30 MG PO
[2020-05-01 17:21] VITALS: BP 137/99
--- NOTE | 2020-05-01 17:40 | NUR ---
IV TEAM CONTACTED FOR IV AND LABS
[2020-05-01 18:10] LABS: ABSOLUTE NEUTROPHILS 5.7 thou/uL (1.4-8.2); BASOPHILS 1.1 % (0.0-2.0); EOSINOPHILS 1.7 % (0.0-3.0); HEMOGLOBIN 13.4 gm/dL (14.0-18.0); LYMPHOCYTES 19.9 % (24.0-44.0); MCHC 33.5 g/dL (28.0-37.0); MCV 77.5 fL (80.0-100.0); MONOCYTES 9.3 % (1.0-8.0); PLATELET COUNT 368 thou/uL (150-400); RBC 5.16 mil/uL (4.50-6.00); RDW 17.3 % (10.5-14.5); WBC 8.4 thou/uL (4.0-11.0)
[2020-05-01] MEDS ORDERED: MEGESTROL400 MG/11 PO (18:17)
[2020-05-01 18:18] LABS: ANION GAP 9 mmol/L (7-16); BUN 16 mg/dL (7-18); CALCIUM 9.5 mg/dL (8.5-10.1); CHLORIDE 99 mmol/L (98-107); CO2 30 mmol/L (21-32); CREATININE 1.1 mg/dL (0.7-1.3); GLUCOSE 92 mg/dL (74-106); SODIUM 138 mmol/L (136-145)
[2020-05-01 18:18] LABS: URINE BLOOD NEGATIVE (Negative); URINE CLARITY CLEAR; URINE COLOR YELLOW; URINE GLUCOSE-RANDOM* NEGATIVE (Negative); URINE KETONES 1+ (Negative); URINE LEUKOCYTES-REFLEX NEGATIVE (Negative); URINE NITRITE-REFLEX NEGATIVE (Negative); URINE PROTEIN (DIPSTICK) 2+ (Negative); URINE SPECIFIC GRAVITY 1.025 (1.005-1.035)
[2020-05-01] MEDS ORDERED: PEPCID40 MG PO (18:18)
[2020-05-01] MEDS ORDERED: SYMBICORT160 MCG/4. INH (18:20)
[2020-05-01] MEDS ORDERED: CREON DR 36,001 EACH PO (18:22)
[2020-05-01] MEDS ORDERED: SLOW FE142 MG PO (18:22)
[2020-05-01 18:25] LABS: ICTOTEST (BILI CONFIRMATORY) Negative (Negative); URINE BILIRUBIN NEGATIVE (Negative)
[2020-05-01] MEDS ORDERED: PROMETHAZINE HC25 M1 PO (18:26)
[2020-05-01] MEDS ORDERED: REMERON 30 MG T30 M1 PO (18:27)
[2020-05-01 18:28] LABS: MUCUS >6 Heavy strn/LPF (None Seen); SQUAMOUS 0-3 Few /LPF (0-3)
[2020-05-01 18:28] LABS: ALBUMIN 3.5 g/dL (3.4-5.0); LIPASE 333 U/L (73-393); SGOT 14 U/L (15-37); SGPT 11 U/L (30-65); TOTAL BILIRUBIN 0.5 mg/dL (0.2-1.0); TOTAL PROTEIN 8.2 g/dL (6.4-8.2); TROPONIN-I <0.06 ng/mL (<0.06)
[2020-05-01 18:29] LABS: BACTERIA-REFLEX None Seen /HPF (None Seen); CRYSTALS None Seen /LPF (None Seen); HYALINE CASTS 0-3 Few /LPF (None Seen); URINE RBC 0-2 Rare /HPF (0-2); URINE WBC-REFLEX 0-5 Rare /HPF (0-5)
[2020-05-01 18:48] VITALS: BP 137/99
[2020-05-01 21:17] VITALS: BP 138/94
--- NOTE | 2020-05-01 21:27 | NUR ---
tried to call report; nurse unavailable to take report.
--- NOTE | 2020-05-02 03:29 | NUR ---
PT ARRIVED ON THE UNIT @2145 FROM ER VIA CART. A&OX4 ADMISSION DONE AND PT OREINTED TO THE ROOM. IV INTACT AND FLUIDS STARTED. C/O PAIN IN LOWER ABD MANAGED BY IV PAIN MEDICATION SEE EMAR. ZOFRAN ALSO GIVEN FOR NAUSEA NO EMESIS. PT NPO AND UP AD NICK. CALL LIGHT IN REACH AND WILL CONT WITH POC TILL EOS.
[2020-05-02 04:47] VITALS: BP 142/92
[2020-05-02 08:30] VITALS: BP 133/90
[2020-05-02 08:45] LABS: ABSOLUTE NEUTROPHILS 3.5 thou/uL (1.4-8.2); BASOPHILS 0.9 % (0.0-2.0); EOSINOPHILS 6.8 % (0.0-3.0); HEMATOCRIT 36.7 % (42.0-52.0); LYMPHOCYTES 23.4 % (24.0-44.0); MCH 25.7 pg (26.0-34.0); MCHC 32.6 g/dL (28.0-37.0); MCV 78.6 fL (80.0-100.0); MONOCYTES 11.8 % (1.0-8.0); POLYS 57.1 % (36.0-66.0); RBC 4.67 mil/uL (4.50-6.00); RDW 16.9 % (10.5-14.5); WBC 6.1 thou/uL (4.0-11.0)
[2020-05-02 08:48] LABS: PLATELET COUNT 243 thou/uL (150-400)
[2020-05-02 08:58] LABS: CALCIUM 8.6 mg/dL (8.5-10.1); CREATININE 0.9 mg/dL (0.7-1.3); MAGNESIUM 2.2 mg/dL (1.8-2.4); TOTAL BILIRUBIN 0.3 mg/dL (0.2-1.0); TOTAL PROTEIN 6.9 g/dL (6.4-8.2)
--- NOTE | 2020-05-02 09:11 | NUR ---
Assumed patient care at 0715. Vital signs stable, LSCTA, abdomen is tender, (especially on left side), BS hypoactive x's 4, skin is clean, warm dry and intact. Patient was given Hydromorphone 0.25mL per IV push at 0618; he reports that his pain is currently a "level six." Patient is also having nausea. Dr Rojas to check last EKG's QT Interval; if this is WNL's, patient can take Zofran.
--- NOTE | 2020-05-02 09:59 | EKG ---
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1970 Requested By: Wen Herrera Order Number: [id number] MD: Wolfgang Cuellar Measurements Intervals [place] Rate: 100 P: 69 [place]: 123 QRS: 57 QRSD: 71 T: 52 QT: 352 QTc: 454 Interpretive Statements Sinus tachycardia Left ventricular hypertrophy ST elev, probable normal early repol pattern Compared to ECG 01/15/2020 12:45:01 Heart rate has increased Electronically Signed On 05-02-2020 9:58:36 CDT by Wolfgang Cuellar [email or web address] <ELECTRONICALLY SIGNED> By: Wolfgang Cuellar MD, [facility] 05/02/20 0958 1735 1735 Wolfgang Cuellar MD, [facility] /EPI
--- NOTE | 2020-05-02 11:33 | NUR ---
PATIENT IS REFUSING ALL BREATHING TREATMENTS, PLEASE CHANGE THEN TO PRN.
[2020-05-02 18:22] VITALS: BP 144/98
[2020-05-02 19:57] VITALS: BP 144/963
[2020-05-03 05:07] VITALS: BP 141/82
[2020-05-03 07:10] VITALS: BP 132/83
--- NOTE | 2020-05-03 07:50 | NUR ---
PT AMBULATING TO BATHROOM INDEPENDENTLY AND IS TOLERATING FAIR. DILAUDID PROVIDING PAIN RELIEF. ZOFRAN NAUSEA RELIEF. RESTING COMFORTABLY. NO NEEDS VOICED. CALL LIGHT WITHIN REACH. FREQUENT OBSERVATION.
--- NOTE | 2020-05-03 15:48 | NUR ---
chart review. cm consult. cm visited with pt at bedside. he was up in bed, eye open with verbal communication. cm cont wear own facial mask during visit. pt is a & o x 4, pleasant and able to make his needs know. " live in house with stairs. sari support. independent when feeling well. manage own medication, had [facility] and [facility] in past for home iv abx"/herlinda. will cont following as needed for dc needs.
--- NOTE | 2020-05-03 16:03 | NUR ---
PT IS AOX4, VSS, PAIN IN LEFT SIDE OF STOMACH IS CONTROLLED WITH ORAL ANALGESIC. PT IS UP AD NICK TO RESTROOM. IV PATENT WITH FLUIDS RUNNING. PT REMAINS NPO. CALLS APPROPRIATELY. CALL LIGHT IN REACH. WILL CONTINUE TO MONITOR.
[2020-05-03 18:45] VITALS: BP 154/91
--- NOTE | 2020-05-04 00:37 | NUR ---
ASSESSED AT START OF SHIFT PT RESTING IN BED. A&OX4 STILL NPO. ZOFRAN GIVEN FOR NAUSEA NO EMESIS AND PAIN MED GIVEN FOR CONTROL. PT UP AD NICK. CLEAR LUNGS SOUNDS. CALL LIGHT IN REACH WILL CONT WITH POC TILL EOS.
[2020-05-04 03:55] VITALS: BP 143/92
--- NOTE | 2020-05-04 13:18 | NUR ---
ON-GOING ASSESSMENT: CM REVIEWED CHART. PT WAS STARTED ON A DIET AND IF HE IS ABLE TO TOLERATE DIET HE CAN POSSIBLY DISCHARGE TOMORROW. CM WILL CONTINUE TO FOLLOW TO ASSIST NEEDED.
[2020-05-04 16:28] VITALS: BP 155/97
[2020-05-04 19:15] VITALS: BP 129/87
--- NOTE | 2020-05-05 02:39 | NUR ---
ASSESSED AT START OF SHIFT.PT A&OX4 MILD PAIN AND NAUSEA MANAGED BY MEDICATION SEE EMAR. FELT RELIEF AFTERWARDS. PT ANTICIPATING D/C TOMORROW. IV INTACT AND FLUIDS INFUISING. UP AD NICK. CALL LIGHT AT REACH WILL CONT TO MONITOR.
[2020-05-05 04:56] VITALS: BP 128/77
[2020-05-05 05:00] VITALS: BP 109/63
[2020-05-05 07:14] VITALS: BP 125/88
--- NOTE | 2020-05-05 07:32 | NUR ---
ASSUMMED CARE OF PATIENT. HE IS AWAKE ALERT XS 4. WAS GIVEN PRN PAIN MED ON NOC SHIFT. HAS FLUIDS INFUSING ORDERED. PT IS PLEASANT AND COOPERATIVE WITH CARE.
[2020-05-05 12:15] VITALS: BP 125/88
--- NOTE | 2020-05-05 12:37 | NUR ---
CALLED DR RICCI SO SHE CAN COMPLETE DISCHARGE PATIENT IS DRESSED AND READY TO LEAVE. IV ACSESS DCD AND BELONGINGS PACKED. PT DOES NOT WANT NOON PILLS OR LUNCH.
== END 2020-05-05 13:18 | disposition home or self-care (01) | DRG 919 ==
LOC: ER 17:17 → EROBS 20:57 → 4S 20:57
PROVIDERS: Internal Medicine; Nurse Practitioner Family; ADMIT Hospitalist; ATTEND Hospitalist
DX: T85.590A Other mechanical complication of bile duct prosthesis, initial encounter (principal); K85.90 Acute pancreatitis without necrosis or infection, unspecified; E43 Unspecified severe protein-calorie malnutrition; N17.9 Acute kidney failure, unspecified; K86.3 Pseudocyst of pancreas; Z68.1 Body mass index [BMI] 19.9 or less, adult; K86.1 Other chronic pancreatitis; K20.8 Other esophagitis; J45.909 Unspecified asthma, uncomplicated; M10.9 Gout, unspecified; I10 Essential (primary) hypertension; F17.210 Nicotine dependence, cigarettes, uncomplicated; I86.4 Gastric varices; R10.9 Unspecified abdominal pain; G89.29 Other chronic pain; Z79.899 Other long term (current) drug therapy; Z88.0 Allergy status to penicillin; Z88.8 Allergy status to other drugs, medicaments and biological substances; Z88.6 Allergy status to analgesic agent; Z91.018 Allergy to other foods; Y83.8 Other surgical procedures as the cause of abnormal reaction of the patient, or of later complication, without mention of misadventure at the time of the procedure; Y92.89 Other specified places as the place of occurrence of the external cause
CPT/HCPCS: 10195

== ENCOUNTER 2020-11-27 15:32 | Inpatient (IN) | payer MEDICARE, OTHER ==
[~2020-11-27] VITALS: Ht 170.2 cm; Wt 45.8 kg
[~2020-11-27 15:32] MED LIST changes: +MEGESTROL400 MG/11 PO; +PEPCID40 MG PO; +PROMETHAZINE HC25 M1 PO; +REMERON 30 MG T30 M1 PO; +SLOW FE142 MG PO
[2020-11-27 15:41] VITALS: BP 109/81
[2020-11-27] MEDS ORDERED: FLONASE 0.05%50 MCG NASAL (15:50)
[2020-11-27] MEDS ORDERED: LISINOPRIL10 MG PO (15:50)
[2020-11-27] MEDS ORDERED: PHENERGAN 25 MG25 M1 PO (15:51)
[2020-11-27 16:00] LABS: URINE BLOOD NEGATIVE (Negative); URINE CLARITY CLEAR; URINE COLOR YELLOW; URINE GLUCOSE-RANDOM* NEGATIVE (Negative); URINE KETONES 2+ (Negative); URINE LEUKOCYTES-REFLEX NEGATIVE (Negative); URINE NITRITE-REFLEX NEGATIVE (Negative); URINE PROTEIN (DIPSTICK) 1+ (Negative); URINE SPECIFIC GRAVITY 1.025 (1.005-1.035)
[2020-11-27 16:07] LABS: ICTOTEST (BILI CONFIRMATORY) Negative (Negative); URINE BILIRUBIN NEGATIVE (Negative)
[2020-11-27 16:15] LABS: BACTERIA-REFLEX None Seen /HPF (None Seen); CASTS None Seen /LPF (None Seen); MUCUS >6 Heavy strn/LPF (None Seen); SQUAMOUS 4-10 Moderate /LPF (0-3); URINE RBC 0-2 Rare /HPF (0-2); URINE WBC-REFLEX 0-5 Rare /HPF (0-5)
[2020-11-27 16:16] LABS: CRYSTALS None Seen /LPF (None Seen)
[2020-11-27 16:40] LABS: ABSOLUTE NEUTROPHILS 6.4 thou/uL (1.4-8.2); BASOPHILS 0.7 % (0.0-2.0); EOSINOPHILS 1.2 % (0.0-3.0); HEMATOCRIT 42.7 % (42.0-52.0); HEMOGLOBIN 13.7 gm/dL (14.0-18.0); LYMPHOCYTES 14.1 % (24.0-44.0); MCH 27.1 pg (26.0-34.0); MCHC 32.1 g/dL (28.0-37.0); MCV 84.3 fL (80.0-100.0); MONOCYTES 9.8 % (1.0-8.0); PLATELET COUNT 440 thou/uL (150-400); POLYS 74.2 % (36.0-66.0); RBC 5.07 mil/uL (4.50-6.00); RDW 17.8 % (10.5-14.5); WBC 8.7 thou/uL (4.0-11.0)
[2020-11-27 16:48] LABS: CALCIUM 8.4 mg/dL (8.5-10.1); CREATININE 0.7 mg/dL (0.7-1.3); POTASSIUM 4.1 mmol/L (3.5-5.1)
[2020-11-27 16:54] LABS: ALBUMIN 3.1 g/dL (3.4-5.0); TOTAL BILIRUBIN 0.4 mg/dL (0.2-1.0)
[2020-11-27 20:43] VITALS: BP 141/85
[2020-11-27 21:20] VITALS: BP 130/80
[2020-11-27 22:02] VITALS: BP 126/83
--- NOTE | 2020-11-28 00:31 | NUR ---
PT ADMITTED TO THE UNIT AT APPROXIMATELY 2130. PT IS A/O X4 AND IS UP AD NICK. PT C/O SEVERE PAIN TO ABDOMEN. PRN PAIN MEDICATION PROVIDED. NOTIFIED [employer] CLERK OF PT REQUEST TO ADJUST PAIN MEDICATION AMOUNT GIVEN IT WAS NOT LOWERING PT PAIN LEVEL. ORDERS GIVEN. ADMISSION COMPLETE. CALL LIGHT IS WITHIN REACH. WILL CONTINUE TO MONITOR.
[2020-11-28 07:52] VITALS: BP 132/81
[2020-11-28 15:59] VITALS: BP 137/97
--- NOTE | 2020-11-28 16:25 | NUR ---
CONSULTED TO PLACE A PICC FOR A PATIENT NEEDING ACCESS. ORDER AND CONSENT NOTE. BENIFITS AND RISK FOR INFECTION AND DVT WERE DISCUSSED WITH THE PATIENT AND HE VERBALIZED UNDERSTANDING. THE RIGHT BRACHIAL VEIN WAS WIDLEY PATENT. A #4F DOUBLE LUMEN POWER PICC WAS PLACED AFTER A BEDSIDE TIMEOUT WAS COMPLETED. LINE PLACED PER HOSPITAL POLICY AND A STAT CHEST XRAY WAS ORDERED FOR CONFIRMATION
[2020-11-28 16:37] LABS: HEMATOCRIT 33.9 % (42.0-52.0); MCH 26.8 pg (26.0-34.0); MCV 83.7 fL (80.0-100.0); RBC 4.05 mil/uL (4.50-6.00); WBC 7.4 thou/uL (4.0-11.0)
[2020-11-28 16:41] LABS: HEMOGLOBIN 10.8 gm/dL (14.0-18.0)
[2020-11-28 16:52] LABS: CALCIUM 6.9 mg/dL (8.5-10.1); CREATININE 0.6 mg/dL (0.7-1.3); MAGNESIUM 2.1 mg/dL (1.8-2.4); POTASSIUM 3.5 mmol/L (3.5-5.1)
--- NOTE | 2020-11-28 19:38 | NUR ---
PT A&OX4, VSS, PAIN IN ABDOMEN AND HAS NAUSEA. PATIENT HAD PICC PLACED RIGHT UPPER ARM TODAY. ASSESSMENT COMPLETED, MEDS GIVEN ORDERED. NO SIGNS OF DISTRESS. WILL CONTINUE TO MONITOR.
[2020-11-28 19:55] VITALS: BP 131/92
--- NOTE | 2020-11-29 04:34 | NUR ---
Assumed pt care at 1900. A/OX4,VSS.C/o pain to Left flank/LLQ medicated per EMAR Q3hrs as well as Nausea with some relief reported. PICC patent on RUE with IVF infusing. SR on telemetry. Pt has an order for intraabdominal abscess drain,placed NPO since midnight. Resting quietly at this time w/o any distress noted,will continue to monitor pt. Pt is ambulatory but has remained in bed this shift voiding per urinal.
[2020-11-29 06:36] LABS: HEMATOCRIT 34.6 % (42.0-52.0); MCH 26.9 pg (26.0-34.0); MCHC 31.7 g/dL (28.0-37.0); MCV 84.7 fL (80.0-100.0); RBC 4.09 mil/uL (4.50-6.00); RDW 17.3 % (10.5-14.5); WBC 7.2 thou/uL (4.0-11.0)
[2020-11-29 06:43] LABS: CALCIUM 7.1 mg/dL (8.5-10.1); CREATININE 0.6 mg/dL (0.7-1.3); POTASSIUM 3.9 mmol/L (3.5-5.1)
--- NOTE | 2020-11-29 09:07 | NUR ---
ORDERS RECIEVED FOR EVAL AND TREAT. Pt IS UP AD NICK IN ROOM. SPOKE WITH Pt WHO STATES HAVING NO DIFFICULTY WITH MOBILITY, BALANCE OR STRENGTH AND DECLINING A FORMAL P.T. EVAL AT THIS TIME
[2020-11-29 09:40] LABS: APTT 34.5 Seconds (24.5-32.8); INR 1.1; PROTIME 10.9 Seconds (9.3-11.4)
--- NOTE | 2020-11-29 09:45 | NUR ---
RECEIVED ORDER FOR EVAL AND TREAT. OT APPROACHED PT ABOUT ORDERS, AND DISCUSSED ROLE AND GOALS FOR OT. PT REFUSED OT SERVICES, AND STATED THAT HE WAS ABLE TO DO EVERYTHING FOR HIMSELF. LIVES WITH SPOUSE, WHO IS RESPONSIBLE FOR IADL'S, AND PT REPORTED THAT CASE MANAGEMENT IS ASSISTING HIM WITH GETTING HOME HEALTH AIDE SERVICES FOR WHEN HIS IS AT WORK. HE HAS ALSO BEEN UP AD NICK IN ROOM, AND INDICATED THAT HE ENJOYS WALKING. NO FURTHER OT INDICATED AT THIS TIME, PT IT APPEARS THAT PT IS AT BASELINE FUNCTIONAL LEVEL. THANKS FOR THE REFERRAL.
--- NOTE | 2020-11-29 18:30 | NUR ---
PT ASSESSED AT START OF SHIFT. C/O LUQ CRAMPING PAIN HELPED SOME W/ MEDS. PT NPO THIS AM UNTIL AFTER LUQ DRAIN PLACED FOR ABSCESS. CLEAR SEROSANGUINOUS DRAINAGE NOTED. DR. BENITEZ IN TO SEE PT AND CHECK DRAIN. HE TALKED W/ DR. ROBERTSON WHO PLACED DRAIN AND PLAN WAS FOR PT TO HAVE DRAIN IRRIGATED Q24HRS W/ 10MLS NS. PT WILL GO HOME W/ DRAIN HE HAS DONE IN THE PAST.
[2020-11-29 20:31] VITALS: BP 130/90
--- NOTE | 2020-11-30 08:14 | NUR ---
Assumed pt care at 1900. A/OX4,VSS, NSR on telemetry. Up ad olegario in hallway/room. C/o pain to LLQ where the drain is,medicated per EMAR with some relief reported as well as nausea. PICC line in place on RUE with IVF infusing w/o any problems. Calls approp for help.
[2020-11-30 08:23] VITALS: BP 117/83
--- NOTE | 2020-11-30 10:30 | NUR ---
ASSUMED PT CARE THIS AM. PT COMPLAINS OF PAIN IN THE LEFT LOWER ABDOMEN, SLOW TO RESPOND TO PAIN MEDS GIVEN. REPORTING INTERMITENT NAUSEA. IV PATENT, MEDS AND FLUIDS INFUSING. PT ON TELE. TAKES MEDS WITHOUT COMPLAINT. CALLS APPROPRIATELY WHEN NEEDED. DRAINAGE BAG FLUSHED THIS AM.
--- NOTE | 2020-11-30 16:23 | NUR ---
PT ADMITTED RELATED TO PANCREATITIS ABDOMINAL WALL ABSCESS. CM REVEIWED CHART AND SPOKE WITH CARE TEAM. CM MET WITH PT AT BEDSIDE THIS DAY. PT APPEARED TO BE A&O X4. CM ROLE INTRODUCED. PT INDICATED THAT HE RESIDES IN A HOUSE WITH HIS SPOUSE WITH 6 STEPS TO ENTER AND 8 INSIDE. 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 PT INDICATED NO RECENT HH OR HOME INFUSION SERVICES. PT INDICATED THAT HE HOPES TO RETURN HOME ONCE MEDICALLY STABLE. HOPES THAT HE WOUND NEED HOME INFUSION UPON DC. HAD USED [facility] AND [facility] IN THE PAST. PT HAD DRAINS PLACED BY IR IN L BACK. CM TO FOLLOW INDICATED WITH DC PLANNING.
[2020-11-30 17:09] VITALS: BP 115/78
[2020-11-30 19:51] VITALS: BP 117/77
--- NOTE | 2020-12-01 04:47 | NUR ---
Assumed pt care at 1900. Pt's A/OX4,VSS. Up ad olegario in room w/o any problems. C/o LLQ pain/nausea medicated per EMAR with slight relief reported. PICC patent on RUE with IVF infusing. Drain on LLQ eith small amount of sanguineous drainage. SR on telemetry.Resting w/o any distress noted. Will continue to monitor pt.
[2020-12-01 09:57] VITALS: BP 98/64
--- NOTE | 2020-12-01 10:28 | NUR ---
Nutrition: Consider liberalize diet to regular in setting of suboptimal intake and severe malnutrition-feel 2 gm Na diet not indicated.
[2020-12-01 15:30] VITALS: BP 111/74
--- NOTE | 2020-12-01 18:33 | NUR ---
PT A&OX4, VSS, C/O PAIN AND NAUSEA. DRAIN LLQ, NO DRAINAGE. ASSESSMENT COMPLETED, MEDS GIVEN ORDERED. PATIENT HAS LOW APPETITE. NO SIGNS OF DISTRESS. WILL CONTINUE TO MONITOR.
[2020-12-01 20:09] VITALS: BP 106/70
--- NOTE | 2020-12-02 03:52 | NUR ---
ASSUMED CARE OF PT AT 1900HRS. PT AOX4 AND LETS NEEDS BE KNOWN. PT IS UP AD NICK. ASSESSMENT CHARTED. TELE DISCONTINUED FOR THIS PATIENT. PT REPORTED SOME PAIN AND NAUSEA, AND WAS TREATED WITH PRN PAIN MEDS AROUND THE CLOCK. LEFT LOWER BACK DRAIN IN PLACE. PT WAS ABLE TO GET COMFORTABLE. VSS AND NO S/S OF ACUTE DISTRESS. WILL CONTINUE TO MONITOR.
[2020-12-02 05:51] LABS: CALCIUM 7.6 mg/dL (8.5-10.1); CREATININE 0.5 mg/dL (0.7-1.3); POTASSIUM 3.8 mmol/L (3.5-5.1)
[2020-12-02 07:11] VITALS: BP 104/71
[2020-12-02 08:57] VITALS: BP 104/71
[2020-12-02] MEDS ORDERED: MEROPENEM-500 MG/50 IVPB (12:45)
[2020-12-02] MEDS ORDERED: VANCOMYCIN750 MG/152 IV (12:45)
[2020-12-02] MEDS ORDERED: ROXICODONE30 MG PO (12:45)
[2020-12-02 13:56] VITALS: BP 104/71
[2020-12-02 13:57] VITALS: BP 104/71
--- NOTE | 2020-12-02 14:26 | NUR ---
CARE TEAM INDICATED THAT PT IS MEDICALLY STABLE TO DC HOME THIS DAY WITH HOME INFUSION AND HOME HEALTH. CM MET WITH PT AND HE INDICATED THAT REFERRALS COULD BE SENT TO [facility] AND [facility] WHO HE HAD USED BEFORE FOR REVIEW FOR POSSIBLE ADMISSION. [facility] CAN ACCEPT AND [facility] HOME INFUSION SERVICES ARE COVERED AT 1005. PT IS AWARE AND AGREEABLE. PT IS TO HAVE LAST DOESES OF [facility] AND [place] HERE PRIOR TO DC AND WILL LEAVE AROUND 1730. ORDERS SENT TO [facility] AND [facility]. PT'S FAMILY TO PROVIDE TRANSPORT HOME. NO OTHER CM INTERVENTION INDICATED. CASE CLOSED.
[2020-12-02 16:49] VITALS: BP 127/86
--- NOTE | 2020-12-02 18:29 | NUR ---
PT A&OX4, VSS, PAIN IN ABDOMEN AND C/O OF NAUSEA. MEDICATION GIVEN ORDERED, ASSESSMENT COMPLETED. PATIENT WENT HOME WITH RIGHT UPPER ARM PICC FOR IV ABX THERAPY. HOME HEALTH CAME AND SHOWED HIM HOW TO MANAGE IV. PATIENT GOING HOME WITH HOME HEALTH. VERABLIZED UNDERSTANDING OF DISCHARGE ORDERS AND PATIENT HAD NO SIGNS OF DISTRESS AT TIME OF DISCHARGE. ALL BELONGINGS SENT WITH PATIENT.
== END 2020-12-02 17:51 | disposition home health service (06) | DRG 438 ==
LOC: ER 15:32 → EROBS 19:32 → 4W 19:32
PROVIDERS: Nurse Practitioner Family; Physician Assistant; Specialist; ADMIT Hospitalist; ATTEND Hospitalist
PROC: 02HV33Z Insertion of Infusion Device into Superior Vena Cava, Percutaneous Approach (ICD-10-PCS; principal; 2020-11-28)
PROC: 0K9L30Z Drainage of Left Abdomen Muscle with Drainage Device, Percutaneous Approach (ICD-10-PCS; 2020-11-29)
DX: K85.90 Acute pancreatitis without necrosis or infection, unspecified (principal); K65.1 Peritoneal abscess; L02.212 Cutaneous abscess of back [any part, except buttock and flank]; K86.3 Pseudocyst of pancreas; K86.1 Other chronic pancreatitis; J45.909 Unspecified asthma, uncomplicated; M10.9 Gout, unspecified; I10 Essential (primary) hypertension; F17.210 Nicotine dependence, cigarettes, uncomplicated; G89.29 Other chronic pain; R10.9 Unspecified abdominal pain; Z20.822 Contact with and (suspected) exposure to COVID-19; R63.4 Abnormal weight loss; Z60.2 Problems related to living alone; K20.90 Esophagitis, unspecified without bleeding; I86.4 Gastric varices; D63.8 Anemia in other chronic diseases classified elsewhere; Z71.6 Tobacco abuse counseling; Z79.891 Long term (current) use of opiate analgesic; Z88.0 Allergy status to penicillin; Z88.8 Allergy status to other drugs, medicaments and biological substances; Z88.6 Allergy status to analgesic agent; Z91.018 Allergy to other foods
CPT/HCPCS: 10040; 10045; 27000

== ENCOUNTER 2020-12-08 02:52 | Emergency (ER) | payer OTHER ==
[~2020-12-08] VITALS: Ht 170.2 cm; Wt 45.8 kg
[~2020-12-08 02:52] MED LIST changes: +MEROPENEM-500 MG/50 IVPB; +VANCOMYCIN750 MG/152 IV
[2020-12-08 04:25] LABS: CALCIUM 8.5 mg/dL (8.5-10.1); CREATININE 1.2 mg/dL (0.7-1.3); POTASSIUM 4.8 mmol/L (3.5-5.1)
[2020-12-08 04:27] LABS: ABSOLUTE NEUTROPHILS 5.3 thou/uL (1.4-8.2); BASOPHILS 0.8 % (0.0-2.0); EOSINOPHILS 10.9 % (0.0-3.0); HEMATOCRIT 35.3 % (42.0-52.0); LYMPHOCYTES 14.7 % (24.0-44.0); MCH 26.5 pg (26.0-34.0); MCHC 31.2 g/dL (28.0-37.0); MONOCYTES 12.5 % (1.0-8.0); PLATELET COUNT 296 thou/uL (150-400); POLYS 61.1 % (36.0-66.0); RBC 4.15 mil/uL (4.50-6.00); RDW 18.2 % (10.5-14.5); WBC 8.7 thou/uL (4.0-11.0)
[2020-12-08 04:31] LABS: ALBUMIN 3.3 g/dL (3.4-5.0); TOTAL BILIRUBIN 0.2 mg/dL (0.2-1.0); TOTAL PROTEIN 7.7 g/dL (6.4-8.2)
[2020-12-08 09:36] VITALS: BP 142/77
== END 2020-12-08 11:09 | disposition still patient (30) ==
LOC: ER 02:52
PROVIDERS: Emergency Medicine
DX: R10.9 Unspecified abdominal pain (principal); I10 Essential (primary) hypertension; J45.909 Unspecified asthma, uncomplicated; M10.9 Gout, unspecified; F17.210 Nicotine dependence, cigarettes, uncomplicated; Z79.899 Other long term (current) drug therapy; Z88.0 Allergy status to penicillin; Z88.5 Allergy status to narcotic agent; Z88.8 Allergy status to other drugs, medicaments and biological substances

== ENCOUNTER → 2021-01-04 | Outpatient (CLI) | payer OTHER ==
[~2021-01-04] VITALS: Ht 170.2 cm; Wt 54.4 kg
--- NOTE | 2021-01-04 12:10 | NUR ---
PT ARRIVED FOR PICC EVAL AND LABS PRIOR TO IR PROCEDURE TODAY. UNCLEAR ON WHETHER OR NOT PICC, WHICH FELL OUT AROUND SUNDAY ACCORDING TO PT, NEEDS TO BE REPLACED. PT HAS NOT HAD HIS IV ANTIBIOTIC SINCE AROUND SUNDAY. PT LOOKS WELL, STATES FEELING WELL OTHER THAN A LITTLE BACK PAIN. CALLED DR. BENITEZ TO UPDATE HIM AND ASK ABOUT PLAN AT THIS TIME. DECISION MADE TO HOLD OFF ON PICC LINE UNTIL AFTER IR EVALUATES HIS DRAIN AND AFTER HE SEES DR. BENITEZ IN THE OFFICE TOMORROW AND LABS RESULTED. PT IN AGREEMENT WITH THIS PLAN. VAT NURSE HERE, MACIEL, WHO PLACED A SALINE LOCK WITH USE OF THE ULTRASOUND AND SHENG LABS FROM THIS LINE. PT THEN HANDED OFF TO THE IR TEAM WHO WILL BE ASSUMING HIS CARE AT THIS TIME.
[2021-01-04 12:29] LABS: HEMATOCRIT 35.6 % (42.0-52.0); HEMOGLOBIN 11.5 gm/dL (14.0-18.0); MCH 27.7 pg (26.0-34.0); MCHC 32.5 g/dL (28.0-37.0); MCV 85.5 fL (80.0-100.0); RBC 4.16 mil/uL (4.50-6.00); RDW 17.6 % (10.5-14.5); WBC 7.5 thou/uL (4.0-11.0)
[2021-01-04 12:47] VITALS: BP 99/64
[2021-01-04 12:47] LABS: ALBUMIN 3.7 g/dL (3.4-5.0); CALCIUM 7.8 mg/dL (8.5-10.1); CREATININE 1.9 mg/dL (0.7-1.3); POTASSIUM 4.7 mmol/L (3.5-5.1); TOTAL BILIRUBIN 0.2 mg/dL (0.2-1.0); TOTAL PROTEIN 7.7 g/dL (6.4-8.2)
--- NOTE | 2021-01-04 13:26 | NUR ---
VAT CONSULTED TO PLACE PICC, INITIALLY, BUT ADMISSIONS SUPERVISOR CALLED DR BENITEZ AND DECISION MADE TO WAIT, BASED ON LABS AND IR FINDINGS. RIGHT ANTERIOR FOREARM, 20GX1.75IN PIV, STARTED, USING US GUIDANCE, X1 ATTEMPT. LABS DRAWN FROM IV.
[2021-01-04 14:44] VITALS: BP 111/67
[2021-01-04 14:46] VITALS: BP 11/67
== END | disposition home or self-care (01) ==
LOC: OPONC 11:30
PROVIDERS: ATTEND Specialist
DX: Z48.03 Encounter for change or removal of drains (principal); K86.1 Other chronic pancreatitis; R10.9 Unspecified abdominal pain; G89.29 Other chronic pain; I10 Essential (primary) hypertension; J45.909 Unspecified asthma, uncomplicated; D64.9 Anemia, unspecified; M10.9 Gout, unspecified; F17.210 Nicotine dependence, cigarettes, uncomplicated; Z98.890 Other specified postprocedural states; Z79.899 Other long term (current) drug therapy; Z88.0 Allergy status to penicillin; Z88.8 Allergy status to other drugs, medicaments and biological substances

== ENCOUNTER 2021-01-19 14:42 | Inpatient (IN) | payer OTHER ==
[~2021-01-19] VITALS: Ht 170.2 cm; Wt 48.1 kg
--- NOTE | ~2021-01-19 | P ---
[facility] [place] [address] PROCEDURE REPORT Name: STEPHANIE TODD Room #: [facility] IN M.R.#: [id number] Admission: 01/19/21 Attend Phys: Jeri Haile MD Discharge: Date of : 68 Report #: [id number] THIS REPORT FOR: cc: Rebeca Sanchez MD, Teresa MD McElhinney, Christian C. MD ~ DATE OF SERVICE: 01/23/2021 PROCEDURE PERFORMED: Upper endoscopy with biopsies. HISTORY OF PRESENT ILLNESS: The patient is a 50-year-old male with a history of chronic pancreatitis, recurrent abdominal pain, nausea and vomiting. 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 Most recent CT was 01/19/2021 showing mild hepatosplenomegaly, numerous portosystemic varices near the splenic hilum and stomach are unchanged including along the gastric lining. The patient denies any bleeding. He has had a previous cholecystectomy. Pancreatic calcifications are noted on CT as well consistent with chronic pancreatitis. He has been on pancreatic enzymes. He has been on multiple antinausea medications. Despite this, he continues to have abdominal pain, nausea and vomiting. Plan is for upper endoscopy. DESCRIPTION OF PROCEDURE: The risks and benefits of the procedure were explained to the patient, those risks including but not limited to bleeding, perforation and the risk of sedation. He understood these risks and gave informed consent. Sedation was given using propofol per anesthesia. Next, using a standard Olympus upper endoscope, the scope was placed in the patient's mouth and advanced under direct vision through the esophagus, stomach and into the second portion of the duodenum. The upper and mid esophagus were normal in appearance. In the distal esophagus, grade A erosive esophagitis was noted. No evidence of bleeding. Upon entering the stomach, obvious large gastric varices were noted in the fundus and upper body. They actually caused somewhat of a narrowing in the mid upper body. The scope passed through this area without difficulty. The gastric antrum was normal. The pylorus was normal and patent. The duodenal bulb, first and second portion were all normal. The scope was brought back up to the gastric antrum. Biopsies were obtained to rule out H. pylori. No evidence of ulcerations or erosions were noted in the stomach or the duodenum. The scope was then withdrawn and the procedure terminated. The patient tolerated the procedure well. IMPRESSION: 1. Large gastric varices in the upper body may be causing somewhat of an obstructive type of picture. 2. Grade A erosive esophagitis. 3. Otherwise, normal upper endoscopy. [address] [address] PROCEDURE REPORT Name: STEPHANIE TODD Room #: 441-P [facility] IN M.R.#: [id number] Admission: 01/19/21 Attend Phys: Jeri Haile MD Discharge: Date of : 68 Report #: [id number] RECOMMENDATIONS: 1. Await biopsies. 2. Continue daily PPI therapy. 3. We will proceed with an upper GI tomorrow to see if gastric varices potentially cause narrowing and/or obstructive type of picture causing nausea and vomiting. Thank you for allowing me to participate in his care. By: 1218 1241 Fernando Diaz MD /nt
[2021-01-19 14:47] VITALS: BP 146/99
[2021-01-19 15:15] LABS: URINE BLOOD NEGATIVE (Negative); URINE CLARITY CLEAR; URINE COLOR YELLOW; URINE GLUCOSE-RANDOM* NEGATIVE (Negative); URINE KETONES 1+ (Negative); URINE LEUKOCYTES-REFLEX NEGATIVE (Negative); URINE NITRITE-REFLEX NEGATIVE (Negative); URINE PROTEIN (DIPSTICK) 1+ (Negative)
[2021-01-19 15:18] LABS: ICTOTEST (BILI CONFIRMATORY) Negative (Negative); URINE BILIRUBIN NEGATIVE (Negative)
[2021-01-19 15:24] LABS: MUCUS 4-6 Moderate strn/LPF (None Seen); SQUAMOUS 0-3 Few /LPF (0-3)
[2021-01-19 15:25] LABS: URINE WBC-REFLEX 0-5 Rare /HPF (0-5)
[2021-01-19 15:26] LABS: BACTERIA-REFLEX 1-9 Few /HPF (None Seen); CASTS None Seen /LPF (None Seen); CRYSTALS None Seen /LPF (None Seen); URINE RBC None Seen /HPF (0-2)
[2021-01-19 15:59] LABS: ABSOLUTE NEUTROPHILS 4.3 thou/uL (1.4-8.2); BASOPHILS 0.7 % (0.0-2.0); EOSINOPHILS 2.2 % (0.0-3.0); HEMATOCRIT 40.3 % (42.0-52.0); HEMOGLOBIN 12.9 gm/dL (14.0-18.0); LYMPHOCYTES 18.1 % (24.0-44.0); MCH 27.4 pg (26.0-34.0); MCV 85.5 fL (80.0-100.0); MONOCYTES 6.3 % (1.0-8.0); PLATELET COUNT 228 thou/uL (150-400); POLYS 72.7 % (36.0-66.0); RBC 4.71 mil/uL (4.50-6.00); RDW 18.5 % (10.5-14.5); WBC 5.9 thou/uL (4.0-11.0)
[2021-01-19 16:09] LABS: ANION GAP 12 mmol/L (7-16); BUN 10 mg/dL (7-18); CALCIUM 9.1 mg/dL (8.5-10.1); CHLORIDE 105 mmol/L (98-107); CO2 27 mmol/L (21-32); GLUCOSE 122 mg/dL (74-106); POTASSIUM 3.9 mmol/L (3.5-5.1); SODIUM 144 mmol/L (136-145)
[2021-01-19 16:20] LABS: ALBUMIN 3.7 g/dL (3.4-5.0); AMYLASE 117 U/L (25-115); DIRECT BILIRUBIN < 0.1 mg/dL (<0.1-0.2); LIPASE 164 U/L (73-393); MAGNESIUM 2.1 mg/dL (1.8-2.4); PHOSPHORUS 2.5 mg/dL (2.5-4.9); SGOT 13 U/L (15-37); SGPT 12 U/L (30-65); TOTAL BILIRUBIN 0.3 mg/dL (0.2-1.0); TOTAL PROTEIN 8.3 g/dL (6.4-8.2); TROPONIN-I <0.06 ng/mL (<0.06)
[2021-01-19 19:58] VITALS: BP 127/83
[2021-01-19 20:22] VITALS: BP 129/84
[2021-01-19 20:35] VITALS: BP 152/92
[2021-01-20 03:57] VITALS: BP 166/87
--- NOTE | 2021-01-20 06:54 | NUR ---
PT ARRIVED TO UNIT APPROX 2044. PT ORIENTED TO ROOM AND UNIT, ADMISSION PACKET PROVIDED. PT AOX4. PT REPORTS ABDOMINAL PAIN. PT RECEIVING PRN IV DILAUDID Q4HR WITH PRN PO OXYCODONE IR Q4HR AVAILABLE. PT NOT TOLERATING PO INTAKE OF FLUIDS OR MEDICATIONS. PT RECEIVING PRN IV ZOFRAN Q4HR AND PRN PO PHENERGAN TID. PT WITH INCREASED NAUSEA AND EMESIS WITH ZOFRAN ADMINISTRATION, CONTINUES TO REPORT PAIN WITH CURRENT DILAUDID DOSE. ATTENDING DR. HERNANDEZ NOTIFIED, RECEIVED ORDERS TO D/C PRN IV 0.5MG DILAUDID Q4HR, START PRN IV 1MG DILAUDID Q4HR, AND START PRN IV 12.5MG PHENERGAN Q6HR. UPON MORNING ROUNDS, COORDINATED CARE WITH DR. HERNANDEZ, ADVISED TO INCLUDE IN REPORT FOR GI THAT ZOFRAN INEFFECTIVE, RECOMMEND PHENERGAN DOSE INCREASE. GI CONSULT NOTIFIED AT 0600 VIA MESFIN WITH ANSWERING SERVICE. PT RESTING WITHOUT INTERRUPTION OR OBSERVATION OF PAIN, DISCOMFORT, OR SOB AFTER PHENERGAN GIVEN WITH 1MG DILAUDID. PT AMBULATING INDEPENDENTLY TO BATHROOM, INTERMITTENTLY VOIDING PER URINAL. PT RESTING IN BED THROUGHOUT SHIFT, FREQUENT REPOSITIONING ENCOURAGED, PT NOTED TO SHIFT INDEPENDENTLY WHILE IN BED. PT ENCOURAGED TO NOTIFY STAFF FOR ALL NEEDS, CALL LIGHT WITHIN REACH, BED LOCKED IN LOWEST POSITION, FREQUENT MONITORING WILL CONTINUE.
[2021-01-20 07:45] VITALS: BP 139/84
--- NOTE | 2021-01-20 10:32 | NUR ---
ASSUMED PT CARE AROUND 0715. PT ALERT X ORIENTED X4. ON ROOM AIR. UP AD NICK. HAD A BM TODAY MORNING. IV RT IJ WITH NS RUNNING AT 75 ML/HR. PT COMPLAINED OF NAUSEA. ASSESMENTS DONE. CARB CONTROL DIABETIC DIET WAS CHANGED TO REGULAR DIET. CALL LIGHT IN REACH. FALL PRECAUTION IN PLACE. WILL CONTINUE TO MONITOR.
[2021-01-20 13:41] LABS: AMP/METHAMP Negative (Negative); BARBITURATES Negative (Negative); BENZODIAZEPINES Negative (Negative); COCAINE Negative (Negative); METHADONE Negative (Negative); OPIATES POSITIVE (Negative); PCP Negative (Negative)
[2021-01-20 14:53] LABS: CALCIUM 7.5 mg/dL (8.5-10.1); POTASSIUM 3.7 mmol/L (3.5-5.1)
[2021-01-20 16:05] VITALS: BP 184/105
--- NOTE | 2021-01-20 16:18 | NUR ---
Met with patient who was sleeping. Patient admits with N/V. He has history of pancreatitis. He resides in independent home with . He has steps to enter home and steps inside home. Patient reports independent with adls and self care. Patient reports he drives. Patient has health insurance and PCP. Patient is on disability. Casemgt following for dc planning.
[2021-01-20 18:43] VITALS: BP 182/98
--- NOTE | 2021-01-21 03:41 | NUR ---
PT C/O NAUSEA IMMEDIATELY AFTER SHIFT CHANGE,MANAGED WITH MED,EFFECTIVE.PT U ADLIB IN ROOM.PT C/O PAIN,REF PO MED,STATED THAT HE CANNOT TY PO MED.BP ELEVATED THIS SHIFT,HYDRALAZINE GIVEN.PT NPO SINCE [place].PT RESTING ON HIS BED AT THIS TIME.CALL LIGHT WITHIN REACH.
[2021-01-21 07:58] VITALS: BP 125/87
--- NOTE | 2021-01-21 12:56 | NUR ---
PT ROUNDS: GI CONSULT PLACED FOR SCOPE EITHER TODAY OR TOMORROW. PT IS NPO, C/O OF NAUSEA.
[2021-01-21 14:46] VITALS: BP 151/75
--- NOTE | 2021-01-21 19:49 | NUR ---
ASSUMED PT CARE THIS AM. PT IS ALERT & ORIENTED X4 BUT ANXIOUS. PT HAS IV SITE ON R EJ RUNNING D1/2 NS @ 75 ML/HR. PT IS NOW ON CLEAR LIQUID DIET. GIVEN BEEF BROTH PER PT REQUEST. PT C/O OF NAUSEA AND PAIN & NOTIFY DR MCFARLANE. GIVEN PT NAUSEA AND PAIN MEDICATION BEFORE SHIFT ENDS. PT ON THE BED, BED ON THE LOWEST POSITION, SIDE RAILS UP X2, CALL LIGHT WITHIN REACH. ENDORSE THE NIGHT NURSE. FOLLOW POC.
[2021-01-21 21:22] VITALS: BP 150/76
--- NOTE | 2021-01-22 03:22 | NUR ---
ASSUMED PT CARE AT 1900.PT STILL C/O ABD PAIN WITH NAUSEA.MANAGED WITH IV MED.PT ON CLEAR LIQUIDS BUT REF TO TAKE ANYTHING PO FOR FEAR OF N/V.PT NPO AT THIS TIME FOR A POSSIBLE EGD IN THE MORNING.IVF INFUSING ORDERED.CALL LIGHT WITHIN REACH.
[2021-01-22 03:39] VITALS: BP 131/97
[2021-01-22 10:45] VITALS: BP 167/98
[2021-01-22 10:47] LABS: ABSOLUTE NEUTROPHILS 3.9 thou/uL (1.4-8.2); BASOPHILS 1.2 % (0.0-2.0); EOSINOPHILS 3.1 % (0.0-3.0); HEMATOCRIT 46.1 % (42.0-52.0); HEMOGLOBIN 14.8 gm/dL (14.0-18.0); LYMPHOCYTES 26.3 % (24.0-44.0); MCH 27.1 pg (26.0-34.0); MCV 84.8 fL (80.0-100.0); MONOCYTES 8.1 % (1.0-8.0); PLATELET COUNT 276 thou/uL (150-400); POLYS 61.3 % (36.0-66.0); RBC 5.44 mil/uL (4.50-6.00); RDW 17.7 % (10.5-14.5); WBC 6.8 thou/uL (4.0-11.0)
[2021-01-22 11:06] LABS: ALBUMIN 3.6 g/dL (3.4-5.0); CALCIUM 7.5 mg/dL (8.5-10.1); CREATININE 0.8 mg/dL (0.7-1.3); POTASSIUM 4.3 mmol/L (3.5-5.1); TOTAL BILIRUBIN 0.5 mg/dL (0.2-1.0); TOTAL PROTEIN 7.3 g/dL (6.4-8.2)
[2021-01-22 11:14] LABS: MAGNESIUM 1.9 mg/dL (1.8-2.4)
[2021-01-22 17:30] VITALS: BP 127/79
--- NOTE | 2021-01-22 18:30 | NUR ---
PT ASSESSED AT START OF SHIFT. STATES HE FEELS PRETTY MISERABLE AND VERY TIRED OF THIS CHROIC PAIN AND NAUSEA. NO VOMITING THIS SHIFT BUT NAUSEA TREATED W/ ZOFRAN. IV DILAUDID GIVEN REGULARLY FOR PAIN W/ SOME RELIEF. TAKING WATER ONLY. DR. RENNER IN TO SEE PT AND PLANNING FOR POSSIBLE EGD TOMORROW.
[2021-01-22 19:50] VITALS: BP 113/71
--- NOTE | 2021-01-23 04:00 | NUR ---
PT CONTINUES TO HAVE NAUSEA AND ABDOMINAL PAIN.NOT TAKING ANY ORAL MEDS. LOOKS MISERABLE. BEEN NPO SINCE MIDNO FOR EGD TODAY.
[2021-01-23 07:30] VITALS: BP 106/69
[2021-01-23 16:00] VITALS: BP 109/74
--- NOTE | 2021-01-23 18:30 | NUR ---
PT CONTINUING TO HAVE CHRONIC PAIN AND NAUSEA- NO EMESIS TODAY. NPO THIS AM FOR EGD. PT NOT TAKING ANYTHING PO EXCEPT WATER. NOT AMBULATING EXCEPT TO THE BATHROOM HE JUST DOESN'T FEEL GOOD. PLAN FOR UPPER GI IN AM.
[2021-01-23 19:05] VITALS: BP 127/91
[2021-01-23 23:04] LABS: CALCIUM 7.4 mg/dL (8.5-10.1); CREATININE 0.9 mg/dL (0.7-1.3); MAGNESIUM 1.9 mg/dL (1.8-2.4); PHOSPHORUS 1.7 mg/dL (2.5-4.9); POTASSIUM 4.1 mmol/L (3.5-5.1)
--- NOTE | 2021-01-24 01:31 | NUR ---
PT NOTIFIED STAFF OF UNMANAGED PAIN AND NAUSEA, NO EMESIS NOTED. REVIEWED EMAR, COORDINATED WITH PHARMACY AND ONCALL MILITARY EQUIPMENT SPECIALIST, NO CONCERNS WITH ADMINISTRATION OF IVPB PHENERGAN. IVPB PHENERGAN GIVEN AFTER IV DILAUDID, PT REPORTS IMMEDIATE RELIEF. PT EXPRESSES CONCERN WITH RECEIVING PRN IV ZOFRAN DUE TO ADVERSE REACTION OF INCREASED NAUSEA. PROVIDED REASSURANCE TO PT THAT CONCERNS AND PREFERENCES WILL BE RESPECTED AND FOLLOWED UP ON. FREQUENT MONITORING WILL CONTINUE.
[2021-01-24 04:22] VITALS: BP 155/102
[2021-01-24 04:48] LABS: BASOPHILS 1.2 % (0.0-2.0); EOSINOPHILS 1.8 % (0.0-3.0); HEMATOCRIT 41.6 % (42.0-52.0); HEMOGLOBIN 13.5 gm/dL (14.0-18.0); MCH 27.5 pg (26.0-34.0); MCHC 32.5 g/dL (28.0-37.0); MCV 84.6 fL (80.0-100.0); MONOCYTES 8.1 % (1.0-8.0); PLATELET COUNT 279 thou/uL (150-400); POLYS 58.9 % (36.0-66.0); RBC 4.92 mil/uL (4.50-6.00); RDW 17.4 % (10.5-14.5); WBC 6.9 thou/uL (4.0-11.0)
[2021-01-24 05:07] LABS: ALBUMIN 3.4 g/dL (3.4-5.0); CALCIUM 7.5 mg/dL (8.5-10.1); CREATININE 0.8 mg/dL (0.7-1.3); PHOSPHORUS 1.7 mg/dL (2.5-4.9); POTASSIUM 4.1 mmol/L (3.5-5.1); TOTAL BILIRUBIN 0.6 mg/dL (0.2-1.0); TOTAL PROTEIN 7.4 g/dL (6.4-8.2)
--- NOTE | 2021-01-24 07:24 | EKG ---
[place] [address] [facility] [place] [employer] [place] [address] ELECTROCARDIOGRAM REPORT Name: STEPHANIE TODD Room #: 441-P ADM IN M.R.#: [id number] Admission: 01/19/21 Attend Phys: Jeri Haile MD Discharge: Date of : 68 Report #: [id number] [facility] Test Date: 2021-01-23 Test Time: 08:44:30 Pat Name: STEPHANIE TODD Department: Room: 441 P Gender: M Quality Assurance Monitor Chassis: : 1970 Requested By: Madelin Rojas Order Number: [id number] : Rangel Frederick Measurements Intervals [place] Rate: 63 P: 75 ME: 118 QRS: 64 QRSD: 80 T: 66 QT: 424 QTc: 435 Interpretive Statements Sinus rhythm Borderline short ME interval Consider left ventricular hypertrophy Compared to ECG 05/01/2020 17:35:09 Sinus tachycardia no longer present ST (T wave) deviation no longer present Electronically Signed On 01-24-2021 7:24:26 CDT by Rangel Frederick [email or web address] <ELECTRONICALLY SIGNED> By: Rangel Frederick MD, [facility] 01/24/21723 3 3 Rangel Frederick MD, [facility] /EPI
[2021-01-24 07:35] VITALS: BP 129/87
--- NOTE | 2021-01-24 07:37 | NUR ---
pt RECEIVED HIS DILAUDID AND ZOFRAN RIGHT BEFORE SHIFT CHANGE.PT C/O NAUSEA WHEN THIS NURSE WAS ON BREAK.THE RN ON THE FLOOR WENT IN AND PT STATED THAT THE ZOFRAN WAS NOT EFFECTIVE FOR HIS NAUSEA.PT RECEIVED IVP PROMETHAZINE.PT WAS STARTEDON PPN AND HIS IVF WAS CHANGED TOO.PT NOTIFIED.PT VOICED CONCERN ABOUT ADDRESSING HIS ELEVATED BP SINCE THE IV MED WAS DC'D.REPORT TO AM NURSE TO FOLLOW UP ON.PT NPO SINCE SHIFT STARTED FOR UPPER GI TODAY.PT AWARE.
--- NOTE | 2021-01-24 14:08 | NUR ---
ON-GOING ASSESSMENT: CM REVIEWED CHART AND SPOKE WITH PATIENT. PT REPORTS BEING FULLY INDEPENDENT WITH ADLS AND AMBULATION. PT HAD EGD TODAY AND POSSIBLE DISCHARGE AFTER PENDING RESULTS. PT REPORTS HE SHOULD HAVE NO NEEDS FROM CM.
--- NOTE | 2021-01-24 15:06 | NUR ---
ASSUMED PT CARE THIS AM. PT IS ALERT & ORIENTED X 4. PT HAS IV SITE ON R EJ. PT UP AD LIP. PT HAS UPPER GI XRAY THIS AM. PT C/O OF PAIN & NAUSEA. GIVEN PAIN & NAUSEA MED. PT REFUSED TO TALK PO MEDS. PT ON THE BED, BED ON THE LOWEST POSITION, SIDE RAILS UP, CALL LIGHT WITHIN REACH. WILL CONTINUE TO MONITOR PT. FOLLOW POC.
[2021-01-24 16:20] VITALS: BP 136/94
[2021-01-24 19:06] VITALS: BP 154/106
--- NOTE | 2021-01-25 02:19 | NUR ---
PT'S PAIN AND NAUSEA MANAGED WITH IV MED.PT STILL NOT ABLE TO EAT ANYTHING.PT CONT ON PPN AND IVF.PT ABLE TO MAKE HIS NEEDS KNOWN.CALL LIGHT WITHIN REACH.
[2021-01-25 03:35] VITALS: BP 118/88
[2021-01-25 08:08] VITALS: BP 134/96
--- NOTE | 2021-01-25 11:27 | NUR ---
ASSUMED PT CARE THIS AM. PT IS ALERT & ORIENTED X4. PT HAS IV SITE ON R EJ. PT IS UP AD NICK. PT TOLERATED PO MED THIS AM. HOWEVER POOR APPETITE. WILL CONTINUE TO MONITOR PT. PT ON THE BED SLEEPING, BED ON THE LOWEST POSITION, SIDE RAILS UP X2, CALL LIGHT WITHIN REACH. FOLLOW POC.
[2021-01-25] MEDS ORDERED: Transderm-Scop 1MG/7 TRANSDERM (14:14)
[2021-01-25 14:58] VITALS: BP 134/96
--- NOTE | 2021-01-25 16:17 | NUR ---
ON-GOING ASSESSMENT: CM REVIEWED CHART. PT HAS ORDERS TO DISCHARGE HOME NO NEEDS. CASE CLOSED.
--- NOTE | 2021-01-25 17:06 | PATH ---
[facility] [place] [address] PATHOLOGY RPT PROCEDURE Name: STEPHANIE TODD Room #: 441-P DIS IN M.R.#: [id number] Admission: 01/19/21 Date of : 68 Discharge: 01/25/21 Report #: [id number] Path Case #: [id number] [facility] Accession Number: [id number] . 01 Material submitted: . gastrointestinal site - BIOPSY GASTRITIS . 01 Clinical history: . N/V ABDOMINAL PAIN GASTRIC VARIES ESOPHAGITIS RULE OUT H PYLORI . 02 Diagnosis: Gastric mucosa, gastritis to rule out H. pylori, endoscopic biopsy: - Mild reactive gastropathy with focal intestinal metaplasia. - Negative for atrophy or dysplasia. - Negative for Helicobacter pylori (properly controlled immunohistochemical stain performed). (IUV:serger; 01/25/2021) MBR 01/25/2021 1601 Local . 02 Electronically signed: . Jazmin Herr MD, Pathologist NPI- [id number] . 01 Gross description: . The specimen is received in formalin, labeled "erica Lopez gastritis". Received are two segments of pale browne tissue measuring 0.4 and 0.5 cm in maximum dimensions. The specimen is submitted entirely in cassette A1. (CAA; 01/24/2021) QAC/QA 01/24/2021 1326 Local . 02 Pathologist provided ICD-10: K31.9 . 02 CPT . 010240, [id number] Specimen Comment: A courtesy copy of this report has been sent to [phone] Specimen Comment: Report sent to Performed at: [address] [id number] MD Cortez Olson MD Phone: [phone] Performed at: [address] [id number] [address] [address] PATHOLOGY RPT PROCEDURE Name: STEPHANIE TODD Room #: 441-P DIS IN M.R.#: [id number] Admission: 01/19/21 Date of : 68 Discharge: 01/25/21 Report #: [id number] Path Case #: [id number] MD Jazmin Herr MD Phone: [phone]
== END 2021-01-25 16:55 | disposition home or self-care (01) | DRG 299 ==
LOC: ER 14:42 → 4S 19:14 → EROBS 19:14 → 4S 20:38
PROVIDERS: Emergency Medicine; Internal Medicine; Nurse Practitioner; ADMIT Internal Medicine; ATTEND Internal Medicine
PROC: 0DB78ZX Excision of Stomach, Pylorus, Via Natural or Artificial Opening Endoscopic, Diagnostic (ICD-10-PCS; principal; 2021-01-23)
DX: I86.4 Gastric varices (principal); E43 Unspecified severe protein-calorie malnutrition; K22.10 Ulcer of esophagus without bleeding; K86.1 Other chronic pancreatitis; I74.8 Embolism and thrombosis of other arteries; Z68.1 Body mass index [BMI] 19.9 or less, adult; K31.89 Other diseases of stomach and duodenum; J45.909 Unspecified asthma, uncomplicated; M10.9 Gout, unspecified; I10 Essential (primary) hypertension; G89.29 Other chronic pain; F17.210 Nicotine dependence, cigarettes, uncomplicated; E11.9 Type 2 diabetes mellitus without complications; R13.10 Dysphagia, unspecified; F10.10 Alcohol abuse, uncomplicated; Z20.822 Contact with and (suspected) exposure to COVID-19; K59.03 Drug induced constipation; T40.2X5A Adverse effect of other opioids, initial encounter; Y92.89 Other specified places as the place of occurrence of the external cause; Z88.0 Allergy status to penicillin; Z88.8 Allergy status to other drugs, medicaments and biological substances; Z88.6 Allergy status to analgesic agent; Z91.018 Allergy to other foods
CPT/HCPCS: 10195; 62110; 62900; 70005

== ENCOUNTER 2021-05-13 17:28 | Emergency (ER) | payer OTHER ==
[~2021-05-13] VITALS: Ht 170.2 cm; Wt 45.4 kg
[~2021-05-13 17:28] MED LIST changes: +Transderm-Scop 1MG/7 TRANSDERM
[2021-05-13 18:48] LABS: ABSOLUTE NEUTROPHILS 5.7 thou/uL (1.4-8.2); BASOPHILS 0.8 % (0.0-2.0); EOSINOPHILS 1.6 % (0.0-3.0); HEMATOCRIT 37.1 % (42.0-52.0); HEMOGLOBIN 12.2 gm/dL (14.0-18.0); LYMPHOCYTES 15.8 % (24.0-44.0); MCH 28.4 pg (26.0-34.0); MCHC 32.9 g/dL (28.0-37.0); MCV 86.3 fL (80.0-100.0); MONOCYTES 3.3 % (1.0-8.0); PLATELET COUNT 414 thou/uL (150-400); POLYS 78.5 % (36.0-66.0); RBC 4.29 mil/uL (4.50-6.00); RDW 16.6 % (10.5-14.5); WBC 7.3 thou/uL (4.0-11.0)
[2021-05-13 18:51] LABS: CALCIUM 9.1 mg/dL (8.5-10.1); CREATININE 0.7 mg/dL (0.7-1.3); POTASSIUM 4.6 mmol/L (3.5-5.1)
[2021-05-13 18:58] LABS: ALBUMIN 3.2 g/dL (3.4-5.0); TOTAL BILIRUBIN 0.3 mg/dL (0.2-1.0); TOTAL PROTEIN 7.4 g/dL (6.4-8.2)
[2021-05-13 19:59] VITALS: BP 113/83
== END 2021-05-13 21:37 | disposition home or self-care (01) ==
LOC: ER 17:28
PROVIDERS: Emergency Medicine
DX: K86.1 Other chronic pancreatitis (principal); R11.2 Nausea with vomiting, unspecified; R10.13 Epigastric pain; J45.909 Unspecified asthma, uncomplicated; F17.210 Nicotine dependence, cigarettes, uncomplicated; Z88.5 Allergy status to narcotic agent; Z88.0 Allergy status to penicillin

== ENCOUNTER 2021-05-15 11:01 | Inpatient (IN) | payer OTHER ==
[~2021-05-15] VITALS: Ht 170.2 cm; Wt 47.4 kg
[2021-05-15 11:02] VITALS: BP 154/93
[2021-05-15 11:44] LABS: ABSOLUTE NEUTROPHILS 4.4 thou/uL (1.4-8.2); BASOPHILS 0.8 % (0.0-2.0); EOSINOPHILS 3.1 % (0.0-3.0); HEMATOCRIT 36.3 % (42.0-52.0); HEMOGLOBIN 12.4 gm/dL (14.0-18.0); MCH 29.2 pg (26.0-34.0); MCV 85.9 fL (80.0-100.0); MONOCYTES 4.4 % (1.0-8.0); PLATELET COUNT 391 thou/uL (150-400); POLYS 72.7 % (36.0-66.0); RBC 4.23 mil/uL (4.50-6.00); RDW 16.6 % (10.5-14.5); WBC 6.1 thou/uL (4.0-11.0)
[2021-05-15 11:48] LABS: CALCIUM 9.4 mg/dL (8.5-10.1); CREATININE 0.8 mg/dL (0.7-1.3); POTASSIUM 4.6 mmol/L (3.5-5.1)
[2021-05-15 11:54] LABS: ALBUMIN 3.3 g/dL (3.4-5.0); TOTAL BILIRUBIN 0.4 mg/dL (0.2-1.0); TOTAL PROTEIN 7.8 g/dL (6.4-8.2)
[2021-05-15 12:44] VITALS: BP 160/96
[2021-05-15 13:00] VITALS: BP 142/82
[2021-05-15 13:13] VITALS: BP 134/84
[2021-05-15 16:17] VITALS: BP 112/74
--- NOTE | 2021-05-15 16:47 | NUR ---
1315 ADMITTED TO ROOM 456. PATIENT IS ALERT AND ORIENTED X4. PATIENT FOUNTAIN'S, FURNITURE CRATER ARE EQUAL. LUNGS ARE CLEAR. ABD IS SOFT WITH BSX4. PATIENT C/O GENERALIZED ABD PAIN. PATIENT USES URINAL TO VOID JAYLA COLORED URINE. PATIENT HAS LEFT IJ WITH D5NS INFUSING AT 100 CC/HR. IV SITE WITHOUT REDNESS OR SWELLING. FALL AND SAFETY PROTOCOLS IN PLACE. C/O GENERALIZED ABD PAIN. MEDICATED WITH PRN PAIN MED. PATIENT IS RESTING ON HIS RIGHT SIDE. PATIENT IS NPO AT THIS TIME. WILL CONTINUE TO MONITER.
[2021-05-15 21:21] VITALS: BP 117/82
--- NOTE | 2021-05-16 03:28 | NUR ---
PT IS A/O X4 AND IS UP WITH ASSISTANCE. ROOM AIR. VSS. AFEBRILE. C/O PAIN AND NAUSEA. NOTIFIED SAIL MAKER. ORDERS GIVEN. PRN PAIN AND NAUSEA MEDICATION GIVEN DIRECTED. SCDS IN PLACE. FALL PRECAUTIONS IN PLACE. WILL CONTINUE TO MONITOR.
[2021-05-16 07:53] VITALS: BP 122/77
[2021-05-16 08:31] LABS: HEMATOCRIT 32.4 % (42.0-52.0); HEMOGLOBIN 10.6 gm/dL (14.0-18.0); MCH 28.4 pg (26.0-34.0); MCHC 32.7 g/dL (28.0-37.0); MCV 86.9 fL (80.0-100.0); RBC 3.73 mil/uL (4.50-6.00); WBC 5.2 thou/uL (4.0-11.0)
[2021-05-16 08:50] LABS: CREATININE 0.8 mg/dL (0.7-1.3)
[2021-05-16 08:53] LABS: POTASSIUM 3.5 mmol/L (3.5-5.1)
--- NOTE | 2021-05-16 10:49 | NUR ---
VARIANCE NOTE: ORDERS RECEIVED FOR O.T. EVAL AND TREAT. MET WITH PT, AND DISCUSSED ROLE OF O.T. PT STATED HAD COMPLETED ALL SELF-CARES IN RESTROOM THIS A.M. AND HAS BEEN UP AD NICK, COMPLETING ADLS INDEPENDENTLY. RN CONFIRMS. DISCUSSED ANY POTENTIAL CONCERNS FOR RETURN HOME, PT DENIES. PT POLITELY DECLINED FORMAL O.T. EVALUATION. WILL SIGN OFF ON O.T. AT THIS TIME. THANK YOU.
--- NOTE | 2021-05-16 10:53 | NUR ---
ORDERS RECEIVED FOR PT EVAL AND TREAT. Pt POLITELY DECLINING PT NEEDS AT THIS TIME. Pt REPORTED HE HAS BEEN UP BY HIMSELF IN HIS ROOM THIS MORNING AND BET TAKER CONFIRMED THIS. PER PAST CHART REVIEW, LIVES W/ IN HOME W/ STAIRS TO ENTER AND INSIDE. NO AD USE. PLEASE CONSIDER RE-CONSULTING PT SERVICES IF Pt'S STATUS CHANGES. ACUTE PT TO SIGN OFF.
--- NOTE | 2021-05-16 11:14 | NUR ---
Assumed care of pt at 0700. Pt a&ox4. C/o pain and nausea. Medications administered. IVF infusing. Pt is now on clear liquids. RA. Urinal at bedside. Call light within reach. Pt calls appropriately. Will continue to monitor.
--- NOTE | 2021-05-16 15:38 | NUR ---
PT ADMITTED RELATED TO PANCRETITIS. CM REVIEWED CHART AND SPOKE WITH CARE TEAM. CM MET WITH PT AT [facility] THIS DAY. PT IS FAMILIAR TO CM FROM PREVIOUS ADMISSIONS. PT RESIDES IN A HOUSE WITH HIS SPOUSE WITH STEPS TO ENTER AND STEPS INSIDE. PT INDICATED HE HAD BEEN INDEPEDNENT WITH GAIT AND ADLS BRAND RECORDER. PT INDICATED HE HAD A HH NURSE GOING OUT UP UNTIL JUST RECENTLY ORDERED BY HIS PCP DR. ELIZABETH HILLS. PT INDICATED HE PLANS TO RETURN HOME ONCE MEDICALLY STABLE. PT EXPRESSED INTEREST IN PERSONAL CARE ASSISTANCE. CM INICATED THAT ELECTRONIC REFERRAL FOR HCBS THROUGH PT'S MEDICAID COULD BE COMPLETED. PT WAS AGREEABLE AND APPRECIATIVE OF THAT. CM FOLLOWING REGARDING DC PLANNING.
[2021-05-16 15:40] VITALS: BP 120/74
[2021-05-16 20:11] VITALS: BP 122/88
--- NOTE | 2021-05-17 04:34 | NUR ---
Pt. awake most of the shift resting in bed watching movies. He c/o chronic pain and nausea. Meds given (see emar) with some relief noted.
[2021-05-17 08:51] VITALS: BP 126/76
--- NOTE | 2021-05-17 11:43 | NUR ---
PATIENT VSS. DENIES ANY NEEDS OR CONCERNS THROUGH OUT THE DAY - ASIDE FROM PAIN MEDICATIONS FOR CHRONIC PAIN/PAIN MANAGEMENT. PATIENT UP AD NICK IN ROOM, LETS NEEDS BE KNOWN. PLAN TO DISCHARGE THIS AFTERNOON. CASE MANEGMENT FOLLOWING AND TO PROVIDE INFORMATION FOR DISCHARGE SERVICES.
--- NOTE | 2021-05-17 13:14 | NUR ---
ADVANCING DIET PER GI. IF PATIENT TOLERATES BY THIS EVENING THEN WILL DISCHARGE. HAS RIDE AVAILABLE AT 1730.
[2021-05-17 15:45] VITALS: BP 126/76
--- NOTE | 2021-05-17 15:46 | NUR ---
CARE TEAM INDICATED THAT PT IS MEDICALLY STABLE TO DC HOME THIS DAY. CM SUBMITTED HCBS ONLINE REFERRAL. CM PRINTED COPY FOR PT. PT TO DC HOME TO SELF CARE THIS DAY. NO OTHER CM INTERVENTION INDICATED. CASE CLOSED.
[2021-05-17 16:04] VITALS: BP 126/76
[2021-05-17 16:12] VITALS: BP 126/76
[2021-05-17 17:39] VITALS: BP 126/88
== END 2021-05-17 18:19 | disposition home or self-care (01) | DRG 439 ==
LOC: ER 11:01 → 4W 12:14 → EROBS 12:14 → 4W 13:00
PROVIDERS: Emergency Medicine; ADMIT Hospitalist; ATTEND Hospitalist
DX: K86.1 Other chronic pancreatitis (principal); F11.20 Opioid dependence, uncomplicated; E44.0 Moderate protein-calorie malnutrition; Z68.1 Body mass index [BMI] 19.9 or less, adult; J45.909 Unspecified asthma, uncomplicated; I10 Essential (primary) hypertension; F17.210 Nicotine dependence, cigarettes, uncomplicated; E11.9 Type 2 diabetes mellitus without complications; K20.90 Esophagitis, unspecified without bleeding; I86.4 Gastric varices; G89.29 Other chronic pain; R10.9 Unspecified abdominal pain; D64.9 Anemia, unspecified; M10.9 Gout, unspecified; Z88.0 Allergy status to penicillin; Z88.8 Allergy status to other drugs, medicaments and biological substances; Z88.6 Allergy status to analgesic agent; Z91.018 Allergy to other foods; Z71.6 Tobacco abuse counseling
CPT/HCPCS: 10045; 10047

== ENCOUNTER 2021-08-03 16:21 | Inpatient (IN) | payer OTHER ==
[~2021-08-03] VITALS: Ht 170.2 cm; Wt 54.4 kg
[2021-08-03 16:30] VITALS: BP 106/72
[2021-08-03 17:15] LABS: URINE BILIRUBIN NEGATIVE (Negative); URINE BLOOD NEGATIVE (Negative); URINE CLARITY CLEAR; URINE COLOR YELLOW; URINE GLUCOSE-RANDOM* NEGATIVE (Negative); URINE KETONES TRACE (Negative); URINE LEUKOCYTES-REFLEX NEGATIVE (Negative); URINE NITRITE-REFLEX NEGATIVE (Negative); URINE PROTEIN (DIPSTICK) 1+ (Negative); URINE SPECIFIC GRAVITY 1.025 (1.005-1.035); URINE UROBILINOGEN 0.2 E.U./dl (0.2-1.0)
[2021-08-03 17:35] LABS: BACTERIA-REFLEX None Seen /HPF (None Seen); SQUAMOUS 0-3 Few /LPF (0-3); URINE RBC None Seen /HPF (NONE SEEN); URINE WBC-REFLEX 0-5 Rare /HPF (0-5)
[2021-08-03 17:53] LABS: ABSOLUTE NEUTROPHILS 5.5 thou/uL (1.4-8.2); EOSINOPHILS 2.9 % (0.0-3.0); HEMATOCRIT 41.3 % (42.0-52.0); HEMOGLOBIN 13.4 gm/dL (14.0-18.0); LYMPHOCYTES 19.3 % (24.0-44.0); MCHC 32.5 g/dL (28.0-37.0); MCV 86.2 fL (80.0-100.0); MONOCYTES 14.1 % (1.0-8.0); PLATELET COUNT 344 thou/uL (150-400); POLYS 62.7 % (36.0-66.0); RBC 4.79 mil/uL (4.50-6.00); RDW 17.9 % (10.5-14.5); WBC 8.7 thou/uL (4.0-11.0)
[2021-08-03 17:56] LABS: CREATININE 1.5 mg/dL (0.7-1.3)
[2021-08-03 18:03] LABS: ALBUMIN 4.1 g/dL (3.4-5.0); TOTAL BILIRUBIN 0.3 mg/dL (0.2-1.0); TOTAL PROTEIN 9.5 g/dL (6.4-8.2)
--- NOTE | 2021-08-03 18:11 | NUR ---
A #4F MIDLINE PLACED FOR ACCESS PER POLICY. THE LINE WAS TRIMMED TO 15CM AND ADVANCED WITHOUT DIFFICULTY. THE LINE WAS SECURED AND RELEASED FOR USE
[2021-08-03 21:14] VITALS: BP 182/121
[2021-08-03] MEDS ORDERED: ROXICODONE30 MG PO (21:27)
[2021-08-03 21:49] VITALS: BP 134/110
--- NOTE | 2021-08-04 03:23 | NUR ---
PT WAS ADMITTED TO THE UIT FROM THE ER IN A STABLE CONDITION.PT C/O GEN ABD PAIN,MANAGED WITH MED.SCOLOPAMINE PATCH BEHIND R EAR.LAST BM ON 08/02.ADMISSION HX,EDUCATION AND ASSESSMENT COMPLETED.IVF INFUSING ORDERED.PT ABLE TO MAKE HIS NEEDS KNOWN,CALL LIGHT WITHIN REACH.
[2021-08-04 04:35] VITALS: BP 125/69
[2021-08-04 07:19] VITALS: BP 162/91
--- NOTE | 2021-08-04 15:23 | NUR ---
TODAY THIS PT HAS BEEN NSR TO ST ON THE HEART MONITOR WITH SOME STATED ABDOMEN PAIN IN WHICH HE WAS MEDICATED FOR. HE HAS BEEN TOLERATING HIS FLUIDS WELL BUT HE HAS ALSO REFUSED ANYTHING BY MOUTH SO FAR TODAY DUE TO FEAR OF VOMITING. HE OTHERWISE HAS BEEN IN HIS ROOM AWAITING FOR THE NEXT PLAN.
--- NOTE | 2021-08-04 15:57 | NUR ---
INITIAL ASSESSMENT: SW reviewed chart and spoke with nursing and attending physician. Pt was admitted from home due to abdominal pain/nausea. Pt with hx of chronic pancreatitis/chronic abdominal pain. GI consulted. SW met with pt at bedside. Introduced role of SW. Pt is alert/orientated x 4. Pt reports he lives at home with his family. Prior to admission, pt was independent with ADLs. No use of DME. Pt has used [facility] in the past. Pt's PCP is Dr. Rebeca Sanchez. Plan is for pt to discharge home when medically stable. SW is following to assist as needed with discharge planning.
[2021-08-04 16:03] VITALS: BP 144/93
[2021-08-04 20:30] VITALS: BP 147/79
[2021-08-04 20:50] VITALS: BP 147/79
[2021-08-05 04:00] VITALS: BP 161/84
[2021-08-05 07:42] VITALS: BP 137/84
[2021-08-05 15:36] LABS: CALCIUM 8.6 mg/dL (8.5-10.1); CREATININE 0.8 mg/dL (0.7-1.3); MAGNESIUM 1.9 mg/dL (1.8-2.4); POTASSIUM 3.9 mmol/L (3.5-5.1)
[2021-08-05 16:08] VITALS: BP 143/86
--- NOTE | 2021-08-05 16:47 | NUR ---
SW reviewed chart and spoke with attending physician. Pt is progressing towards goals for discharge. Pt's diet being advanced as tolerated. Possible weekend discharge anticipated. Pt will not have any discharge needs. SW is available to assist should needs arise.
--- NOTE | 2021-08-05 17:31 | NUR ---
TODAY THIS PT HAS HAD SOME STATED PAIN AND NAUSEA IN WHICH HE WAS MEDICATED. HE HAS BEEN IN HIS ROOM AND EATING SMALL AMOUNTS OF HIS FOOD. HE HAS OTHERWISE BEEN TOLERATING HIS FLUIDS WELL AND IS AWAITING FOR THE NEXT PLAN.
[2021-08-05 19:28] VITALS: BP 145/81
[2021-08-06 00:09] VITALS: BP 145/87
--- NOTE | 2021-08-06 02:02 | NUR ---
LATE ENTRY FROM 08/04/21 ASSUMED CARE OF PT AT 1900. BEDSIDE REPORT RECIEVED, JANIS ASSESSMETN COMPLETE. PT REFUSED HEPARIN, EXTENSIVE PT EDUCATION PROVIDEDM VERBALIZED UNDERSTANDING. PT REFUSED ACCUCHECK AND INSULIN, PT EDUCATION PROVIDED PT VERBALIZED UNDERSTANDING. IVFLUIDS RUNNING ORDERED. RUE SL MIDLINE PATENT, SECURED. PT HAD ONE EPISODE OF CLEAR EMESIS, ABOUT 50 ML. HOUORLY ROUNDING CONTINUING. CALLM MLIGHT WITH IN REACH.
--- NOTE | 2021-08-06 04:39 | NUR ---
ASSSUMED CARE OF PT AT 1900. BEDSIDE REPORT RECIEVED. JANIS ASSESSMENT COMPLETE. SARA DARBY ML CDI, PATENT. IVF RUNNING ORDERED. PT C/O NAUSEA AND ABDOMIAL PAIN THROUGH SHIFT, NO EMESIS PRODUCED TONIGHT. REFUSED HEPARIN, ACCUCHECKS, AND INSULIN. PT EDUCATION PROVIDED, AT BEDSIDE, BOTH VERBALIZED UNDERSTANDING. PT REPOSITIONS SELF, ADEQUATE BED MOBILITY. DENIES ANY OTHER NEEEDS AT THIS TIME. CALL LIGHT IN REACH.
[2021-08-06 05:06] VITALS: BP 132/80
--- NOTE | 2021-08-06 09:27 | NUR ---
Assumed care of pt at 0700. Pt a&ox4. C/o abd pain. IVF infusing. On a full liquid diet. No other complaints at this time. Call light within reach. Will continue to monitor.
[2021-08-06 12:20] VITALS: BP 139/94
[2021-08-06 16:40] VITALS: BP 133/90
[2021-08-06 19:42] VITALS: BP 140/90
--- NOTE | 2021-08-07 02:58 | NUR ---
PT IS A/O X4 AND IS UP AD NICK. ROOM AIR. VSS. AFEBRILE. C/O ABDOMEN PAIN,AND NAUSEA. PRN PAIN AND NAUSEA MEDICATION GIVEN DIRECTED. FALL PRECAUTIONS IN PLACE, CALL LIGHT IS WITHIN REACH.
[2021-08-07 04:10] VITALS: BP 122/78
[2021-08-07 07:53] VITALS: BP 129/82
--- NOTE | 2021-08-07 11:21 | NUR ---
ASSUMED PT CARE THIS AM. PT IS ALERT & ORIENTED X4. PT HAS IV SITE ON LOLIS MIDLINE RUNNING NS @100ML/HR. PT IS UP AD NICK. PT IS ON TELE MONITOR ON. PT IS ACCUCHECK ACHS BUT REFUSES. PT C/O OF PAIN AND NAUSEA AND GIVEN MEDS PER PT REQUEST. EDUCATED PT ABOUT PRN MEDICATIONS THIS AM. PT IS ON ROOM AIR. WILL CONTINUE TO MONITOR PT. FOLLOW POC.
[2021-08-07 12:13] VITALS: BP 149/94
[2021-08-07] MEDS ORDERED: ACETAMINOPHEN325 M1 PO (13:27)
[2021-08-07 13:45] VITALS: BP 149/94
== END 2021-08-07 14:15 | disposition home or self-care (01) | DRG 438 ==
LOC: ER 16:21 → EROBS 20:09 → 4S 20:09
PROVIDERS: Physician Assistant; ADMIT Internal Medicine; ATTEND Internal Medicine
DX: K85.20 Alcohol induced acute pancreatitis without necrosis or infection (principal); N17.0 Acute kidney failure with tubular necrosis; I74.8 Embolism and thrombosis of other arteries; K20.90 Esophagitis, unspecified without bleeding; K86.0 Alcohol-induced chronic pancreatitis; I86.4 Gastric varices; J45.909 Unspecified asthma, uncomplicated; I10 Essential (primary) hypertension; Z20.822 Contact with and (suspected) exposure to COVID-19; M10.9 Gout, unspecified; G89.29 Other chronic pain; E11.9 Type 2 diabetes mellitus without complications; R10.9 Unspecified abdominal pain; K59.03 Drug induced constipation; T40.2X5A Adverse effect of other opioids, initial encounter; Y92.89 Other specified places as the place of occurrence of the external cause; Z79.891 Long term (current) use of opiate analgesic; Z88.0 Allergy status to penicillin; Z88.8 Allergy status to other drugs, medicaments and biological substances; Z88.6 Allergy status to analgesic agent; Z91.018 Allergy to other foods; Z71.6 Tobacco abuse counseling; Z28.21 Immunization not carried out because of patient refusal; Z23 Encounter for immunization
CPT/HCPCS: 10100; 27000